=== PATIENT | female | born 1990 | race Caucasian/White ===

== ENCOUNTER 2024-12-29 08:36 | Emergency (ER) | payer OTHER, SELFPAY ==
[2024-12-29 09:04] VITALS: BP 121/61; PULSE 64; RESP 18; TEMP 36.2; O2SAT 97; BMI 26.6
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
[2024-12-29 09:46] VITALS: BP 121/61; PULSE 64; RESP 18; TEMP 36.2; O2SAT 97
--- OUTSIDE RECORDS SUMMARY | 2024-12-29 09:48 | XMS_ITS | Encounter Summary ---
Author Organization [facility] Address [address] [place] [address] Care Team Providers Care Financial Assistant Name Role Phone Ingris Johnson MD Primary Care Provider [phone] Encounter Details Date Type Department Care Team (Late st Contact Info) Description 11/29/2024 Telephone Orthopedic Surgery - [place] [address] [address] Yaniv Gonzales, DPRadha [address] [address] Social History Tobacco Use Types Packs/Day Years Used Date Smoking Tobacco: Never Assessed Comments Unknown Sex and Gender Information Value Date Recorded Sex Assigned at Not on file Legal Sex Female 9:58 AM EDT Gender Identity Not on file Sexual Orientation Not on file documented as of this encounter Progress Notes * Ivone Huggins - 12/10/2024 5:01 PM EDT RX & clinicals faxed multiple times. Re-faxing again. * Acosta Mohan - 11/29/2024 2:45 PM EDT [facility] called today at [phone] regarding about scripts that need to be signed by Dr. Gonzales. Has been faxing since 10/14-11/21 documented in this encounter Plan of Treatment Not on file documented as of this encounter Visit Diagnoses Not on filedocumented in this encounter Care Teams Financial Assistant Relationship Specialty Start Date End Date Ingris Johnson MD PCP - General Family Medicine 07/05/24 documented as of this encounter
--- OUTSIDE RECORDS SUMMARY | 2024-12-29 09:48 | XMS_ITS | Clinical Summary ---
Author Organization [address] [facility] Address [address] [place] [address] Phone Care Team Providers Care Plan Manager Name Role Phone Ingris Johnson MD Primary Care Provider [phone] Encounters Date Type Department Care Team Description 11/29/2024 Telephone Orthopedic Surgery [facility] [address] [facility] [address] [place] [address] Yaniv Gonzales DPM from Last 3 Months Social History Tobacco Use Types Packs/Day Years Used Date Smoking Tobacco: Never Assessed Comments Unknown Sex and Gender Information Value Date Recorded Sex Assigned at Not on file Legal Sex Female 9:58 AM EDT Gender Identity Not on file Sexual Orientation Not on file Plan of Treatment Health Maintenance Due Date Last Done Comments Pneumococcal Vaccine: Pediatrics (0 to 5 Years) and At-Risk Patients (6 to 49 Years) (1 of 2 - PCV) 2008 Depression Screening 04/10/2024 HIV Screening 07/05/2024 Social Influencers of Health Screening 07/05/2024 COVID-19 Vaccine ( - season) 2024 Influenza Vaccine (#1) 2024 Cervical Cancer Screening: HPV 07/08/2029 07/08/2024 DTaP,Tdap,and Td Vaccines (10 - Td or Tdap) 04/20/2032 04/20/2022, 09/05/2018, 02/13/2008, Additional history exists RSV Immunization Adult Patients (1 - 1-dose 75+ series) 2064 MMR Vaccines Completed 08/23/1993, 09/21/1990 Hepatitis B Vaccines Completed 07/04/1994, 10/19/1993, 08/23/1993 IPV Vaccines Completed 01/26/1995, 10/08, 08/23/1993, Additional history exists Meningococcal ACWY Vaccine Completed 07/10/2006 Varicella Vaccines Completed 10/13/2007, 10/17/2001 HPV Vaccines Completed 02/06/2008, 09/09, 07/20/2007 Hepatitis A Vaccines Completed 02/06/2008, 07/20/19 08 HIB Vaccines Aged Out 02/13/2008 No longer eligi ble based on patient's age to complete this topic Hepatitis C Screening Completed 08/19/2020 Meningococcal B Vaccine Aged Out No l onger eligible based on patient's age to complete this topic RSV Immunization Patients Under 20 months Aged Out No longer eligible based on patient's age to complete this topic Insurance [facility] [employer] PLANS Care Teams Plan Manager Relationship Specialty Start Date End Date Ingris Johnson MD PCP - General Family Medicine 07/05/24
--- OUTSIDE RECORDS SUMMARY | 2024-12-29 09:49 | XMS_ITS | Encounter Summary ---
Author Organization [employer] Address [address] [facility] [address] [address] [place] [address] Care Team Providers Care Cardiology Consultant Name Role Phone AlexIngris Primary Care Provider [phone] Encounter Details Date Type Department Care Team (Late st Contact Info) Description 01/31/2024 Orders Only [facility] [address] [place] [address] Tai Bang NP [address] [place] [address] Social History Tobacco Use Types Packs/Day Years Used Date Smoking Tobacco: Never Smokeless Tobacco: Never Alcohol Use Standard Drinks/Week Comments Yes 0 (1 standard drink = 0.6 oz pur e alcohol) Occasionally Housing Stability Answer Date Recorded What is your housing situation today? I have nazanin briggs 08/21/[address] you li ve. Do you have problems with any of the following? None of the above 08/21/2023 Food Insecurity Answer Date Recorded Within the past 12 months, y ou worried that your food would run out before you got money to buy more: Never True 08/21/2023 Within the past 12 months,th e food you bought just didn't last and you didn't have enough money to get more: Never True Transportation Answer Date Recorded In the past 12 months, has l ack of transportation kept you from medical appts, meetings, work or from getting things needed for daily living? No 08/21/2023 Utilities Answer Date Recorded In the past 12 months, has t he electric, gas, oil or water company threatened to shut off services in your home? No 08/21/2023 Depression Answer Date Recorded Patient Health Questionnaire-2 Score 0 08/21/2023 Comments No Sex and Gender Information Value Date Recorded Sex Assigned at Female 02/09/2022 2:22 PM EDT Legal Sex Female 8:37 PM EDT Gender Identity Female 05/13/2022 9:25 AM EST Sexual Orientation Choose not to disclose 2022 2:57 PM EST documented as of this encounter Plan of Treatment Upcoming Encounters Date Type Department Care Team (Late st Contact Info) Description 01/09/2025 9:15 AM EDT Office Visit [facility] MEDICAL [address] [place] [address] Ingris Johnson DO [address] [place] [address] 03/24/2025 8:30 AM EST Office Visit [facility] DENTAL [address] [place] [address] Aletha Haddad documented as of this encounter Procedures Procedure Name Priority Date/Time Associated Diagnosis Comments PULMONARY FUNCTION TESTING Routine 06/30/2021 9:04 AM EDT documented in this encounter Results * Pulmonary function testing (06/30/2021 9:04 AM EDT) Tai Bang HANDLE ASSEMBLER PFT ORDERABLES Final Result documented in this encounter Visit Diagnoses Not on filedocumented in this encounter Care Teams Cardiology Consultant Relationship Specialty Start Date End Date Ingris Johnson DO [address] [place] [address] PCP - General Family Medicine 01/08/24 documented as of this encounter
--- OUTSIDE RECORDS SUMMARY | 2024-12-29 09:49 | XMS_ITS | Encounter Summary ---
Author Organization [employer] Address [address] [place] [address] [address] [place] [address] Care Team Providers Care Black Ash Worker Name Role Phone Fallon Portillo PA-C Primary Care Provider Unav Ingris Flores DO Primary Care Provider [phone] Encounter Details Date Type Department Care Team (Late st Contact Info) Description 04/19/2023 Orders Only [place] [facility] [address] [place] [address] Fallon Portillo PA-C Social History Tobacco Use Types Packs/Day Years Used Date Smoking Tobacco: Never Smokeless Tobacco: Never Alcohol Use Standard Drinks/Week Comments Yes 0 (1 standard drink = 0.6 oz pur e alcohol) Occasionally Comments Unknown Sex and Gender Information Value [...] Description 01/09/2025 9:15 AM EDT Office Visit [facility] MEDICAL [address] [place] [address] Ingris Johnson DO [address] [place] [address] 03/24/2025 8:30 AM EST Office [facility] DENTAL [address] [place] [address] Aletha Haddad documented as of this encounter Procedures Procedure Name Priority Date/Time Associated Diagnosis Comments SED RATE BY MODIFIED WESTERGREN Routine 04/18/2023 documented in this encounter Results * Sed Rate by Modified Westergren (04/18/2023) Blood Venous blood specimen / Unknown Fallon Portillo PA-C LAB BLOOD ORDERABLES Edited Result - Final documented in this encounter Visit Diagnoses Not on filedocumented in this encounter Care Teams Black Ash Worker Relationship Specialty Start Date End Date Fallon Portillo PA-C PCP - General Family Medicine 06/20/22 01/07/24 Ingris Johnson DO [address] [place] [id number] PCP - General Family Medicine 01/08/24 documented as of this encounter
--- OUTSIDE RECORDS SUMMARY | 2024-12-29 09:49 | XMS_ITS | Encounter Summary ---
Author Organization [employer] Address [address] [address] [place] [address] Care Team Providers Care Concrete Panel Installer Name Role Phone Fallon Portillo PA-C Primary Care Provider Ingris Tejeda DO Primary Care Provider [phone] Encounter Details Date Type Department Care Team (Late st Contact Info) Description 08/28/2023 Orders Only [facility] [address] [place] [address] Fallon Portillo PA-C Social History Tobacco Use [...] Patient Health Questionnaire-2 Score 0 08/21/2023 Comments Unknown Sex and Gender Information Value [...] 01/09/2025 9:15 AM EDT Office Visit [facility] MEDICAL [address] [place] [address] Ingris Johnson DO [address] [place] [address] 03/24/2025 8:30 AM EST Office Visit [facility] DENTAL [address] [place] [address] Aletha Haddad documented as of this encounter Procedures Procedure Name Priority Date/Time Associated Diagnosis Comments SED RATE BY MODIFIED WESTERGREN Routine 08/28/2023 2:03 PM EDT CBC WITH AUTO DIFFERENTIAL Routine 08/28/2023 12:00 PM EDT documented in this encounter Results * Sed Rate by Modified Westergren (08/28/2023 2:03 PM EDT) Blood Venous blood specimen / Unknown Fallon Portillo PA-C LAB BLOOD ORDERABLES Final Result * CBC auto differential (08/28/2023 12:00 PM EDT) Blood Venous blood specimen / Unknown Fallon Portillo PA-C LAB BLOOD ORDERABLES Final Result documented in this encounter Visit Diagnoses Not on filedocumented in this encounter Care Teams Concrete Panel Installer Relationship Specialty Start Date End Date Fallon Portillo PA-C PCP - General Family Medicine 06/20/22 01/07/24 Ingris Johnson DO [address] [place] [address] PCP - General Family Medicine 01/08/24 documented as of this encounter
--- OUTSIDE RECORDS SUMMARY | 2024-12-29 09:49 | XMS_ITS | Encounter Summary ---
Author Organization [employer] Address [address] [address] [place] [address] Care Team Providers Care Vacuum Cleaner Mechanic Name Role Phone Ingris Johnson DO Primary Care Provider [phone] Encounter Details Date Type Department Care Team (Late st Contact Info) Description 04/06/2024 Orders Only [place] [facility] [address] [place] [address] Ingris Johnson DO [address] [place] [address] Social History Tobacco Use Types Packs/Day Years [...] 01/09/2025 9:15 AM EDT Office Visit [facility] MEDICAL [address] [place] [address] Ingris Johnson DO [address] [place] [address] 03/24/2025 8:30 AM EST Office Visit [facility] DENTAL [address] [place] [address] Aletha Haddad documented as of this encounter Procedures Procedure Name Priority Date/Time Associated Diagnosis Comments COMPREHENSIVE METABOLIC PANEL Routine 03/29/2024 10:45 AM EST CBC WITH AUTO DIFFERENTIAL Routine 03/29/2024 10:45 AM EST documented in this encounter Results * Comprehensive Metabolic Panel (03/29/2024 10:45 AM EST) Blood Venous blood specimen / Unknown us Ingris Johnson LAB BLOOD ORDERABLES Final Res ult * CBC auto differential (03/29/2024 10:45 AM EST) Blood Venous blood specimen / Unknown us Ingris Johnson DO LAB BLOOD ORDERABLES Final Res ult documented in this encounter Visit Diagnoses Not on filedocumented in this encounter Care Teams Vacuum Cleaner Mechanic Relationship Specialty Start Date End Date Ingris Johnson DO [address] [place] [address] PCP - General Family Medicine 01/08/24 documented as of this encounter
--- OUTSIDE RECORDS SUMMARY | 2024-12-29 09:49 | XMS_ITS | Encounter Summary ---
Author Organization [employer] Address [address] [facility] [address] [place] [address] Care Team Providers Care Tank Insulator Rubber Name Role Phone Fallon Portillo PA-C Primary Care Provider Unav ailIngris Joy DO Primary Care Provider Encounter Details Date Type Department Care Team (Latest Contact Info) Description 03/28/2019 Abstract [facility] CONVERSIONS Dental, Provider, DDS Social History Tobacco Use Types Packs/Day Years [...] Description 01/09/2025 9:15 AM EDT Office Visit [facility] MEDICAL [address] [place] [address] Ingris Johnson DO [address] [place] [address] 03/24/2025 8:30 AM EST Office Visit [facility] DENTAL [address] [place] [address] Aletha Haddad documented as of this encounter Visit Diagnoses Not on filedocumented in this encounter Care Teams Tank Insulator Rubber Relationship Specialty Start Date End Date Fallon Portillo PA-C PCP - General Family Medicine 06/20/22 01/07/24 Ingris Johnson DO [address] [place] [address] PCP - General Family Medicine 01/08/24 documented as of this encounter
--- OUTSIDE RECORDS SUMMARY | 2024-12-29 09:49 | XMS_ITS | Encounter Summary ---
Author Organization [facility] Address [address] [facility] [address] [place] [address] Phone Care Team Providers Care Child Care Provider Name Role Phone RaMayuri black Sandra TIMMONS Primary Care Provider + Fallon Portillo Primary Care Provider [phone] Yisel Boles MD Unavailable [phone] Ingris Johnson DO Primary Care Provider [phone] Ingris Johnson DO Primary Care Provider [phone] Encounter Details Date Type Department Care Team (Late st Contact Info) Description 06/30/2021 Ancillary Orders [facility] Rheumatology [address] [place] [address] Susanna Hyatt MD [address] [facility], [address] [place] [address] [email or web address] Social History Tobacco Use Types Packs/Day Years Used Date Smoking Tobacco: Never Smokeless Tobacco: Never Alcohol Use Standard Drinks/Week Comments Yes 2 (1 standard drink = 0.6 oz pur e alcohol) 1- 2 times monthly Comments No Sex and Gender Information Value Date Recorded Sex Assigned at Female 10/13/2019 8:18 AM EDT Legal Sex Female 9:05 PM EDT Gender Identity Female 10/13/2019 8:18 AM EDT Sexual Orientation Straight 10/13/2019 8: 18 AM EDT documented as of this encounter Plan of Treatment Upcoming Encounters Date Type Department Care Team (Late st Contact Info) Description 03/24/2025 9:00 AM EST Nurse Only [facility] Pulmonary, Allergy and Critical Care Medicine [address] [place] [address] Patrick Henson MD [address] [facility] 2nd [place] [address] documented as of this encounter Visit Diagnoses Not on filedocumented in this encounter Additional Health Concerns Infection Onset Date Last Indicated Resolved Time CoV-Risk 05/25/2023 05/25/2023 06/05/2023 1:24 AM EST documented as of this encounter Care Teams Child Care Provider Relationship Specialty Start Date End Date Mayuri Michael CNP [address] [place] [id number] [email or web address] PCP - General 01/24/17 09/01/22 Fallon Portillo PA [address] [place] [phone] [email or web address] PCP - General Physician Human Resources Operations Specialist 09/02/22 05/01/24 Ingris Johnson DO [address] [place] [address] PCP - General Family Medicine 05/02/24 10/07/24 Ingris Johnson DO [address] [place] [address] PCP - General Family Medicine 10/08/24 Yisel Boles MD [address] [place] [address] Insurance Assigned Provider 07/15/23 03/20/24 documented as of this encounter Additional Source Comments The information contained in this document represents components of the legal health record. It is not the complete legal health record.[email or web address]
--- OUTSIDE RECORDS SUMMARY | 2024-12-29 09:49 | XMS_ITS | Encounter Summary ---
Author Organization [facility] Address [address] [place] [phone] Phone Care Team Providers Care Asian Art Curator Name Role Phone RadongtoyaSylMayurikat Flores CNP Primary Care Provider + Fallon Portillo Primary Care Provider [phone] Yisel Boles MD Unavailable [phone] Ingris Johnson DO Primary Care Provider [phone] Ingris Johnson DO Primary Care Provider [phone] Encounter Details Date Type Department Care Team (Latest Contact Info) Description 09/16/2021 Transcribe Orders [facility] Laboratory [address] [place] [address] Lisa Rodriguez PA-C [address] [facility], [place] [place] [address] [email or web address] Diarrhea, unspecified type (Primary Dx); Lower abdominal pain; Rectal bleeding; Constipation, unspecified constipation type Social History Tobacco Use Types Packs/Day Years [...] Pulmonary, Allergy and Critical Care Medicine [address] [place] [address] [place] [address] Patrick Henson MD 10 [facility] 2nd [place] [address] documented as of this encounter Results * Ferritin (09/16/2021 10:01 AM EDT) FERRITIN 104 13 - 150 ug/L [facility] Blood 09/16/2021 10:0 1 AM EDT 09/16/2021 10:07 AM EDT us Lisa Rodriguez PA-C LAB BLOOD ORDERABLES Final Resu lt [address] [address] * TSH (09/16/2021 10:01 AM EDT) TSH 1.79 0.27 - 4.20 uIU/mL [facility] Blood 09/16/2021 10:0 1 AM EDT 09/16/2021 10:07 AM EDT us Lisa Rodriguez PA-C LAB BLOOD ORDERABLES Final Resu lt [address] [address] * Immunoglobulin A (09/16/2021 10:01 AM EDT) IgA 144 70 - 400 mg/dL [facility] Blood 09/16/2021 10:0 1 AM EDT 09/16/2021 10:07 AM EDT us Lisa Rodriguez PA-C LAB BLOOD ORDERABLES Final Resu lt Performing Organization Address City/[facility]/ZIP Co de Phone Number [address] [address] * Lipase (09/16/2021 10:01 AM EDT) LIPASE 39 16 - 63 U/L [facility] Blood 09/16/2021 10:0 1 AM EDT 09/16/2021 10:07 AM EDT us Lisa Rodriguez PA-C LAB BLOOD ORDERABLES Final Resu lt Performing Organization Address [facility] Co de Phone Number [address] [address] * C-Reactive Protein (09/16/2021 10:01 AM EDT) C REACTIVE PROTEIN <3.0 0.0 - 4.0 mg/L [facility] Blood 09/16/2021 10:0 1 AM EDT 09/16/2021 10:07 AM EDT us Lisa Rodriguez PA-C LAB BLOOD ORDERABLES Final Resu lt Performing Organization Address [facility]/ZIP Co de Phone Number [address] [address] * Comprehensive metabolic panel (09/16/2021 10:01 AM EDT) SODIUM 139 133 - 146 mmol/L [facility] POTASSIUM 5.1 3.3 - 5.1 mmol/L [facility] CHLORIDE 104 96 - 108 mmol/L [facility] CO2 27 21 - 35 mmol/L [facility] BUN 16 6 - 19 mg/dL [facility] CREATININE 0.80 0.5 - 1.5 mg/dL [facility] GLUCOSE 96 70 - 99 mg/dL [facility] ALBUMIN 4.5 3.9 - 4.8 g/dL [facility] TOTAL PROTEIN 7.7 6.5 - 8.0 g/dL [facility] CALCIUM 9.2 8.4 - 10.3 mg/dL [facility] ALKALINE PHOSPHATASE 39 39 - 117 U/L [facility] TOTAL BILIRUBIN 0.5 0.0 - 1.2 mg/dL [facility] AST 17 0 - 37 U/L [facility] ALT 12 0 - 40 U/L [facility] GLOBULIN 3.2 1 - 4.8 g/dL [facility] EGFR 100 >59 mL/min/1.7 3m2 [facility] Comment:Estimated glomerular filtration rate calculated using the CKD-EPI refit equation. ANION GAP 13 10 - 20 mmol/L [facility] Blood 09/16/2021 10:0 1 AM EDT 09/16/2021 10:07 AM EDT us Lisa Rodriguez PA-C LAB BLOOD ORDERABLES Final Resu lt Performing Organization Address City/State/[facility] Co de Phone Number [address] [address] documented in this encounter Visit Diagnoses Diagnosis Diarrhea, unspecified type- Primary Lower abdominal pain Abdominal pain, other specified site Rectal bleeding Hemorrhage of rectum and anus Constipation, unspecified constipation type documented in this encounter Additional Health Concerns Infection Onset Date Last Indicated Resolved Time CoV-Risk 05/25/2023 05/25/2023 06/05/2023 1:24 AM EST documented as of this encounter Care Teams Asian Art Curator Relationship Specialty Start Date End Date Mayuri Michael CNP [address] [place] [address] [email or web address] PCP - General 01/24/17 09/01/22 Fallon Portillo PA [address] [place] [address] [email or web address] PCP - General Physician Auto Rental Supervisor 09/02/22 05/01/24 Ingris Johnson DO [address] [place] [address] [email or web address] PCP - General Family Medicine 05/02/24 10/07/24 Ingris Johnson DO [address] [place] [address] PCP - General Family Medicine 10/08/24 Yisel Boles MD [address] [place] [phone] [email or web address] Insurance Assigned Provider 07/15/23 03/20/24 documented as of this encounter Additional Source Comments The information contained in this document represents components of the legal health record. It is not the complete legal health record.[facility]
--- OUTSIDE RECORDS SUMMARY | 2024-12-29 09:49 | XMS_ITS | Encounter Summary ---
Author Organization [employer] Address [address] [facility] 7t [place] [address] Care Team Providers Care Backroom Associate Name Role Phone Ingris Johnson DO Primary Care Provider [phone] Encounter Details Date Type Department Care Team (Late st Contact Info) Description 04/22/2024 Orders Only [place] [facility] MED[facility] [address] [place] [address] Ingris Johnson DO [address] [place], [place] [phone] Social History Tobacco Use Types Packs/Day Years Used Date Smoking Tobacco: Never Smokeless Tobacco: Never Alcohol Use Standard Drinks/Week Comments Yes 0 (1 standard drink = 0.6 oz pur e alcohol) Occasionally Alcohol Answer Date Recorded How often do you have a drink containing alcohol ? 1 04/15/2024 How many drinks containing a lcohol do you have on a typical day when you are drinking? 0 04/15/2024 How often do you have six or more drinks on one occasion? 1 04/15/2024 Housing Stability Answer Date Recorded What is [...] Description 01/09/2025 9:15 AM EDT Office Visit [facility] MEDICAL [address] [place] [address] Ingris Johnson DO [address] [place] [address] 03/24/2025 8:30 AM EST Office Visit [facility] DENTAL [address] [place] [address] Aletha Haddad documented as of this encounter Visit Diagnoses Not on filedocumented in this encounter Care Teams Backroom Associate Relationship Specialty Start Date End Date Ingris Johnson DO [address] [place] [address] PCP - General Family Medicine 01/08/24 documented as of this encounter
--- OUTSIDE RECORDS SUMMARY | 2024-12-29 09:49 | XMS_ITS | Clinical Summary ---
Author Organization [employer] Address [address] [place] [address] 7[address] [place] [address] Care Team Providers Care Office Nurse Name Role Phone Ingris Johnson DO Primary Care Provider Allergies Active Allergy Reactions Criticality Noted Date Comments Fluticasone Other 12/27/2016 Other reaction(s): epistaxis Nose Bleeds Latex Hives 12/27/2016 Lidocaine Rash Low 10/22/2024 Other 02/02/2024 Dissolvable stitches Oxycodone-Acetaminophen Itching,Rash Low 12/27/2016 Other reaction(s): hives Penicillin G Anaphylaxis High 12/27/2016 Other reaction(s): hives-as a child [place] Oil Unknown 08/01/2022 Vancomycin Itching,Rash Low 12/27/2016 Other reaction(s): hives Medications dicyclomine (Bentyl) 10 MG capsule 2 Active albuterol (2.5 MG/3ML) 0.083% nebulizer solutionIndicat ions:Cough, unspecified type Take 3 mL (2.5 mg) by nebulization if needed in the morning, at noon, in the evening, and at bedtime for wheezing or shortness of breath for up to 365 doses. 1095 mL 3 Active UNABLE TO FIND Nitric Oxide 4 Active [place]-3 Fatty Acids (Fish Oil) 1000 MG capsule delayed-release Take 1,000 mg by mouth Once per day. 4 Active Lysine 500 MG capsule Take 500 mg by mouth Once per day. 4 Active lidocaine-prilo angelica (Emla) 2.5-2.5 % cream Apply topically 1 (one) time if needed for mild pain or moderate pain. 5 Active LORazepam (Ativan) 0.5 MG tablet Take 0.5 mg by mouth every 6 (six) hours if needed for anxiety or sedation. 5 Active valACYclovir (Valtrex) 1 g tablet Take 1,000 mg by mouth 4 times daily. 5 Active Beclomethasone Diprop HFA (Qvar) 80 MCG/ACT inhaler Inhale 2 puffs 2 times daily. 5 Active Budeson-Glycopy rrol-Formoterol (Breztri Aerosphere) 160-9-4.8 MCG/ACT aerosol Inhale 2 puffs 2 times daily. 5 10/18/19 26 Active Atrovent HFA 17 MCG/ACT inhaler Inhale 2 puffs every 6 (six) hours if needed for wheezing or shortness of breath. 5 Active Active Problems Problem Noted Date Diagnosed Date Impacted cerumen of both ears 08/05/2024 Varicose veins of right lower extremity with denice n 09/11/2023 Overview (09/11/2023): Worsening pain and bulging of right LE varicose veins. Failed conservative tx. Will refer to vascular. Cough variant asthma 08/21/2023 Overview (08/21/2023): Has been following allergy, Dr. Torres. Was started on amitriptyline. New onset headache 05/25/2023 Assessment & Plan (05/25/2023 1:52 PM EST): New onset severe throbbing headache worsening with position changes/coughing/sneezing. Additional symptoms of vomiting. Advised evaluation in ED at higher level of care. Discussed with patient current symptoms indicate need for immediate evaluation in ED. Patient verbalizes understanding and will go to [facility] ED for in person evaluation at this time, will have partner drive or call 911. Seasonal allergies 08/15/2022 Overview (08/15/2022): Rx amitriptyline and albuterol from allergy. Follows Dr. Torres. Other irritable bowel syndrome 08/15/2022 Overview (08/15/2022): Followed by GI. Takes dicyclomine prn Adjustment disorder with mix ed disturbance of emotions and conduct 06/20/2022 Heart murmur 06/20/2022 Raynaud's disease without gangrene 01/12/2022 Overview (08/01/2022): Keep warm, dress in layers. Optimize stress management strategies. Avoid vasoconstrictors in OTC products for cold/flu and sinus. Vitamin D deficiency 10/16/2019 Inflammatory polyarthropathy 12/12/2018 Overview (08/21/2023): Seen by rheum - labs have not revealed immunologic signs of rheumatoid arthritis versus systemic lupus erythematosus versus Sjogren's syndrome. She was seen for the 2nd opinion rheumatology consultation at [facility] 09/23/2020 when she was fairly asymptomatic so there was no clear indication for adding any DMARDs at that time. She did benefit from Celebrex. After clinical and ultrasonographic evaluation at [facility] by Dr. Lewis on 11/09/2020 there are no signs of inflammatory arthritis necessitating DMARD therapy at this time. Positive antinuclear antibody 08/11/2017 Overview (08/05/2022): Positive CARLENE in itself does not make any disease diagnosis but may be a risk factor for her to develop 1 of the systemic rheumatic diseases associated with positive CARLENE at some point in the future. Healthful lifestyle, daily sun protection, regular exercise and avoidance of any sicknesses may be helpful in decreasing the risk. Some patients may benefit from taking slow acting disease modifying antirheumatic medication (DMARD) Plaquenil to reduce rate of progression to disease and prevent/reduce flares if disease already present. She is interested in other options since Plaquenil did not provide benefit-I provided her with pamphlets on methotrexate, sulfasalazine and Arava briefly explaining their most frequent side effects, dosing and usual onset of action. To make sure that there are no other options both diagnostically and therapeutically that she would benefit from I have offered her a second opinion rheumatology consultation at [facility]-she was seen on 09/23/[address] Crystal Neely and at that time did not have flare . Resolved Problems Problem Noted Date Diagnosed Date Resolved Date Influenza A 05/09/2024 05/28/2024 Encounters Date Type Department Care Team Description 11/29/2024 9:45 AM EDT Office Visit [facility] MEDICAL [address] [place] [address] Ingris Johnson DO Abnormal uterine bleeding (AUB) (Primary Dx); Cough variant asthma 11/28/2024 Travel 11/22/2024 Telephone [facility] MEDICAL [address] [place] [address] Ingris Johnson DO period issues (ongoing for 3 weeks) 10/07/2024 10:30 AM EDT Office Visit [facility] DENTAL [address] [place] [address] Aletha Haddad Grinding of teeth (Primary Dx) 10/06/2024 Travel from Last 3 Months Immunizations Immunization Administration Dates Next Due DTP 10/17/2001, 5,10/19/1993,08/23,1989 HPV 9-Valent 02/06/2008,10/02/2007,07/20/2007 Hep A, ped/adol, 2 dose 02/06/2008,07/20/2007 Hep B, Adolescent or Pediatric 07/04/1994,1993,08/23/1993 Hib (PRP-T) 02/13/2008 MMR 08/23/1993,09/21/1990 Meningococcal MCV4P ACYW-135 07/10/2006 Polio, Unspecified 01/26/1995, 4,08/23/1993,07/27 TD (adult), 2 Lf tetanus tox oid, preservative free, adsorbed 09/05/2018,05/10/2003 Tdap 04/20/2022,02/13/2008 Varicella 10/13/2007,10/17/2001 Family History Medical History Relation Name Comments Coronary artery disease Paternal Grandfather Relation Name Status Comments Other Nothing new per pt 08/04/17 Brother was born with Glaucoma Sister is far sided. MOM wears glasses. Paternal Grandfather diagnos ed with Coronary artery disease (CAD) Social History Tobacco Use Types Packs/Day Years Used Date Smoking Tobacco: Never Passive Smoke Exposure: Never Smokeless Tobacco: Never Tobacco Cessation:Counseling Given: Not Answered Alcohol Use Standard Drinks/Week Comments Yes 0 [...] Date Recorded Patient Health Questionnaire-2 Score 0 07/08/2024 Internet Access Answer Date Recorded Internet Access Q1 Yes 07/08/2024 Internet Access Q2 Not on file 07/08/2024 Education Answer Date Recorded What is the highest level of school you have completed or the highest degree you have received? Associate degree: occupational, technical, or vocational program 07/08/2024 Comments No Intention Date Recorded No desire to become (finding) 0 07/08/2024 Sex and Gender Information Value Date Recorded Sex Assigned at Female 02/09/2022 2:22 PM EDT Legal Sex Female 8:37 PM EDT Gender Identity Female 05/13/2022 9:25 AM EST Sexual Orientation Choose not to disclose 2022 2:57 PM EST Occupation Industry Job Start Date Job End Date Not on file Not on file Not on file Not on file Last Filed Vital Signs Vital Sign Reading Time Taken Comments Blood Pressure 110/68 11/29/2024 9:52 AM EDT Pulse 59 11/29/2024 9:52 AM EDT Temperature 36.3 C (97.3 F) 11/29/2024 9:52 AM EDT Respiratory Rate 16 04/15/2024 2:19 PM EST Oxygen Saturation 99% 11/29/2024 9:52 AM EDT Inhaled Oxygen Concentration - - Weight 74.8 kg (165 lb) 11/29/2024 9:52 AM EDT Height 167.6 cm (5' 6 ) 11/29/2024 9:52 AM EDT Body Mass Index 26.63 11/29/2024 9:52 AM EDT Plan of Treatment Upcoming Encounters Date Type Department Care Team (Late st Contact Info) Description 01/09/2025 9:15 AM EDT Office Visit [facility] MEDICAL [address] [place] [address] Ingris Johnson DO [address] [place] [address] 03/24/2025 8:30 AM EST Office Visit [facility] DENTAL [address] [place] [address] Aletha Haddad Health Maintenance Due Date Last Done Comments HIV Screening 1989 Pneumococcal Vaccine: Pediatrics (0 to 5 Years) and At-Risk Patients (6 to 49) Years (1 of 2 - PCV) 2008 COVID-19 Vaccine ( - season) 2024 Influenza Vaccine (#1) 2024 Dental Oral Exam 03/19/2025 09/16/2024, , 07/18/2023, Additional history exists Dental Prophylaxis 03/19/2025 09/16/2024, 1 , 07/18/2023, Additional history exists Alcohol/Substance Use Screening 04/15/2025 04/15/2024 Disability Screening 05/08/2025 05/08/2024 Depression Screening 07/08/2025 07/08/2024, 07/09/19 Family Planning (PISQ) 07/08/2025 07/08/2024 SDOH Screening 07/08/2025 07/08/2024 Tobacco Screening 09/16/2025 09/16/2024 Dental X-Ray: Bitewings 09/17/2025 09/17/19 25, 01/12/2024, 07/18/2023, Additional history exists Dental X-Ray: Full Mouth 07/18/2026 07/18/2023, 11/09 Pap Smear 07/09/2027 07/08/2024, 06/10, 08/29/2023 Cervical Cancer Screening 07/08/2029 HPV/Cotest 07/08/2029 07/08/2024, 08/29/2023 DTaP/Tdap/Td Vaccines (10 - Td or Tdap) 04/20/2032 04/20/2022, 09/05/2018, 02/13/2008, Additional history exists Zoster Vaccines (1 of 2) 2039 RSV Patients and Patients Aged 60 years or older (1 - 1-dose 75+ series) 2064 Hepatitis B Vaccines Completed 07/04/1994, 10/19/1993, 08/23/1993 IPV Vaccines Completed 01/26/1995, 10/08, 08/23/1993, Additional history exists Meningococcal Vaccine Completed 07/10/2006 HPV Vaccines Completed 02/06/2008, 09/09, 07/20/2007 Hepatitis A Vaccines Completed 02/06/2008, 07/20/19 08 HIB Vaccines Aged Out 02/13/2008 No longer eligi ble based on patient's age to complete this topic Hepatitis C Screening Completed 08/19/2020 Meningococcal B Vaccine Aged Out No l onger eligible based on patient's age to complete this topic RSV under 20 months Aged Out No longe r eligible based on patient's age to complete this topic Rotavirus Vaccines Aged Out No longer eligible based on patient's age to complete this topic Procedures Procedure Name Priority Date/Time Associated Diagnosis Comments CBC WITH AUTO DIFFERENTIAL Routine 11/29/2024 11:07 AM EDT Abnormal uterine bleeding (AUB) ID OCCLUSAL GUARD, IN HOUSE Routine 10/07/2024 10:30 AM EDT Full PROPHYLAXIS - ADULT Routine 09/16/2024 9:20 AM EDT BITEWINGS - 4 RADIOGRAPHIC IMAGES Routine 09/16/2024 9:20 AM EDT PERIODIC ORAL EVALUATION - ESTABLISHED PATIENT Routine 09/16/2024 9:20 AM EDT IMAGE GUIDED PAP, APTIMA HPV W/REFLEX TO HPV GENOTYPE 16 Routine 07/08/2024 12:00 AM EDT GYNECOLOGIC PAP TEST-AGE BASED GUIDELINE CERVICAL CANCER Routine 07/08/2024 12:00 AM EDT Cervical cancer screening INTRAORAL - COMPLETE SERIES OF RADIOGRAPHIC IMAGES Routine 07/18/2023 3:00 PM EDT ZZZ HISTORICAL HEPATITIS C ANTIBODY, QUALITATIVE Routine 08/19/2020 9:33 AM EDT from Last 3 Months or Most Recently Relevant to Health Maintenance Results * CBC auto differential [[id number]] (11/29/2024 11:07 AM EDT) White Blood Cell Count 7.9 3.4 - 10.8 x10E3/uL [facility] Red Blood Cell Count 4.49 3.77 - 5.28 x10E6/uL [facility] 1 Hemoglobin 13.9 11.1 - 15.9 g/dL [facility] 1 Hematocrit 42.5 34.0 - 46.6 % [facility] 1 MCV 95 79 - 97 fL [facility] 1 MCH 31.0 26.6 - 33.0 pg [facility] 1 MCHC 32.7 31.5 - 35.7 g/dL [facility] 1 RDW 12.6 11.7 - 15.4 % [facility] 1 Platelet Count 258 150 - 450 x10E3/uL [facility] 1 Neutrophils 73 Not Estab. % [facility] 1 Lymphocytes 19 Not Estab. % [facility] 1 Monocytes 6 Not Estab. % [facility] 1 Eosinophils 1 Not Estab. % [facility] 1 Basophils 1 Not Estab. % [facility] 1 Absolute Neutrophils 5.8 1.4 - 7.0 x10E3/uL [facility] 1 Absolute Lymphocytes 1.5 0.7 - 3.1 x10E3/uL [facility] 1 Absolute Monocytes 0.5 0.1 - 0.9 x10E3/uL [facility] 1 Absolute Eosinophils 0.1 0.0 - 0.4 x10E3/uL [facility] 1 Absolute Basophils 0.1 0.0 - 0.2 x10E3/uL [facility] 1 Immature Granulocytes 0 Not Estab. % [facility] 1 Immature Grans (Abs) 0.0 0.0 - 0.1 x10E3/uL [facility] 1 Blood Venous blood specimen / Unknown 11/29/2024 11:07 AM EDT 11/29/2024 Narrative Resulting Agency Comment Performed at: [facility] [id number] Business Process Lead: Sonya Bear MD, Phone: [phone] [facility] LAB BLOOD ORDERABLES Final Res ult Performing Organization Address [facility] Co de Phone Number [facility] * Pap - Age Guideline for Cervical Cancer and STDs (Aptima??) [463837] (07/08/2024 12:00 AM EDT) Age Guideline ACOG Testing 30-65 [facility] 1 ThinPrep vial (Cervical cells) 07/08/2024 07/08/2024 Comment:Cervical cells Narrative [facility] 1 - 07/10/2024 2:05 PM EDT Performed at: [facility] [address], [place], [place] [id number] Business Process Lead: Daniel Mace MD, Phone: [phone] Specimen Comment: [id number] Specimen Comment: Source.............Cervix Specimen Comment: LMP / Prev Treat...[id number] Specimen Comment: No. of containers..01 ThinPrep Vial [facility] CYTOLOGY ORDERABLES Final Result Performing Organization Address [facility] Co de Phone Number [facility] * Image Guided Pap, Aptima HPV w/Reflex to HPV Genotypes 16 and 18,45 (07/08/2024 12:00 AM EDT) Diagnosis [facility] 1 Comment:NEGATIVE FOR INTRAEP ITHELIAL LESION OR MALIGNANCY. Adequacy: [facility] 1 Comment: Satisfactory for evaluation. Endocervical and/or squamous metaplastic cells (endocervical component) are present. Clinician provided ICD-10: [facility] 1 Comment:Z12.4 Performed by: [facility] 1 Comment:Lisa Mendoza, [facility] otechnologist (ASCP) Cytology Comment . [facility] 1 Note: [facility] 1 Comment: The Pap smear is a screening test designed to aid in the detection of premalignant and malignant conditions of the uterine cervix. It is not a diagnostic procedure and should not be used as the sole means of detecting cervical cancer. Both false-positive and false-negative reports do occur. Test Methodology: [facility] Comment: This liquid based ThinPrep(R) pap test was screened with the use of an image guided system. HPV Aptima Negative Negative [facility] 2 Comment: This nucleic acid amplification test detects fourteen high-risk HPV types (16,18,31,33,35,39,45,51,52,56,58,59,66,68) without differentiation. HPV Genotype Reflex [facility] 1 Comment:Criteria not met, HP V Genotype not performed. 07/08/2024 07/08/2024 Comment:Cervical cells Narrative [facility] 1 - 07/10/2024 2:05 PM EDT Performed at: - [facility] [address], [address], [place] [id number] Business Process Lead: Daniel Mace MD, Phone: [phone] Performed at: - [facility] [address], [address], [place] [id number] Business Process Lead: Daniel Mace MD, Phone: [phone] Ingris Johnson LAB CYTOLOGY ORDERABLES Final Result [facility] 1 [facility] * Hepatitis C antibody, qualitative (08/19/2020 9:33 AM EDT) HCV [facility] 08/19/2020 9:33 AM EDT us Susanna Hyatt MD HISTORICAL/NON ORDERABLE LABS Final Result [facility] [address] [place] [address], from Last 3 Months or Most Recently Relevant to Health Maintenance Insurance [facility] - HSN PARTIAL (MEDICAID) Care Teams Office Nurse Relationship Specialty Start Date End Date Ingris Johnson DO [address] [place] [id number] PCP - General Family Medicine 01/08/24
--- OUTSIDE RECORDS SUMMARY | 2024-12-29 09:49 | XMS_ITS | Encounter Summary ---
Author Organization [facility] Address [address] [place] [address] Phone Care Team Providers Care Music Leader Name Role Phone Mayuri Michael CNP Primary Care Provider + Mayuri Michael CNP Unavailable [phone] Tai Garcia MD Unavailable [phone] Barak CheemaM Unavailable Unavailable Fallon Portillo Primary Care Provider Yisel Boles MD Unavailable [phone] Ingris Johnson DO Primary Care Provider [phone] Ingris Johnson DO Primary Care Provider [phone] Reason for Referral * Physical Therapy (Routine) - Closed Specialty Diagnoses / Procedures Referred By Alejandra leal Referred To Contact Physical Therapy Diagnoses Encounter for rehabilitation Graciela Antony DPM Phone: tel: fax: mailto:[email or web address] Ashanti Kendall PT mailto:[email or web address] Referral ID Status Reason Start Date Expiration Date Visits Re quested Visits Authorized [id number] Closed 03/28/2018 03/28/2019 20 20 Encounter Details Date Type Department Care Team (Latest Contact Info) Description 03/20/2018 Transcribe Orders [facility] [address] [place] [address] Graciela Antony DPM 10 [facility] 7 [place] [address] [email or web address] Encounter for rehabilitation (Primary Dx) Social History Tobacco Use Types Packs/Day Years Used Date Smoking Tobacco: Never Smokeless Tobacco: Never Alcohol Use Standard Drinks/Week Comments Yes 2 (1 standard drink = 0.6 oz pur e alcohol) 1- 2 times monthly Comments Unknown Sex and Gender Information Value [...] Pulmonary, Allergy and Critical Care Medicine 10 [place] [address] Patrick Henson MD [address] [place] [address] [email or web address] documented as of this encounter Procedures Procedure Name Priority Date/Time Associated Diagnosis Comments AMB REFERRAL TO [facility] PHYSICAL THERAPY Routine 04/09/2018 11:08 AM EST Encounter for rehabilitation documented in this encounter Results * Ambulatory referral to [facility] Physical Therapy (04/09/2018 11:08 AM EST) Graciela Antony DPM AMB [facility] REFERRALS Final Result documented in this encounter Visit Diagnoses Diagnosis Encounter for rehabilitation- Primary documented in this encounter Additional Health Concerns Infection Onset Date Last Indicated Resolved Time CoV-Exposed Comment:Recent close contact documented in the Travel/Symptom Screening Form 04/10/2021 04/25/2021 1:[address] CoV-Risk 05/25/2023 05/25/2023 06/05/2023 1:24 AM EST documented as of this encounter Care Teams Music Leader Relationship Specialty Start Date End Date Mayuri Michael CNP [address] [place] [address] [email or web address] PCP - General 01/24/17 09/01/22 Fallon Portillo PA [address] [place] [address] [email or web address] PCP - General Physician Cleaning Staff Supervisor 09/02/22 05/01/24 Ingris Johnson DO [address] [place] [address] [email or web address] PCP - General Family Medicine 05/02/24 10/07/24 Ingris Johnson DO [address] [place] [address] PCP - General Family Medicine 10/08/24 Mayuri Michael CNP [address] [place] [address] [email or web address] Historical LMR Provider 01/26/1704/17 Tai Garcia MD [address] [place] [address] Historical LMR Provider 01/26/17 Barak Cheema DPM [address] [place] [address] Historical LMR Provider 01/26/1704/17/21 Yisel Boles MD [address] [place] [address] [email or web address] Insurance Assigned Provider 07/15/23 03/20/24 documented as of this encounter Additional Source Comments The information contained in this document represents components of the legal health record. It is not the complete legal health record.[facility]
--- OUTSIDE RECORDS SUMMARY | 2024-12-29 09:49 | XMS_ITS | Encounter Summary ---
Author Organization [facility] Address [address] [facility] [address] [place] [address] Phone Care Team Providers Care Soda Fountain Manager Name Role Phone RaSyl blackkat Flores CNP Primary Care Provider + Fallon Portillo Primary Care Provider [phone] Yisel Boles MD Unavailable [phone] Ingris Johnson DO Primary Care Provider [phone] Ingris Johnson DO Primary Care Provider [phone] Encounter Details Date Type Department Care Team (Late st Contact Info) Description 06/30/2021 Ancillary Orders [facility] Rheumatology 22 [place] [address] Susanna Hyatt MD 22 [facility], [address] [place] [address] [email or web address] Pneumonia due to COVID-19 virus Social History Tobacco Use Types Packs/Day Years [...] Pulmonary, Allergy and Critical Care Medicine [address] [place] [address] Patrick Henson MD 10 [facility] 2nd [place] [address] documented as of this encounter Visit Diagnoses Diagnosis Pneumonia due to COVID-19 virus documented in this encounter Additional Health Concerns Infection Onset Date Last Indicated Resolved Time CoV-Risk 05/25/2023 05/25/2023 06/05/2023 1:24 AM EST documented as of this encounter Care Teams Soda Fountain Manager Relationship Specialty Start Date End Date Mayuri Michael CNP [address] [place] [address] [email or web address] PCP - General 01/24/17 09/01/22 Fallon Portillo PA [address] [place] [address] [email or web address] PCP - General Physician Oncology Social Worker 09/02/22 05/01/24 Ingris Johnson DO [address] [place] [address] [email or web address] PCP - General Family Medicine 05/02/24 10/07/24 Ingris Johnson DO [address] [place] [address] PCP - General Family Medicine 10/08/24 Yisel Boles MD [address] [place] [address] [email or web address] Insurance Assigned Provider 07/15/23 03/20/24 documented as of this encounter Additional Source Comments The information contained in this document represents components of the legal health record. It is not the complete legal health record.[facility]
--- OUTSIDE RECORDS SUMMARY | 2024-12-29 09:49 | XMS_ITS | Encounter Summary ---
Author Organization [employer] Address [address] [facility] 7t [place] [address] Care Team Providers Care Cat Scan Tech Name Role Phone Fallon Portillo PA-C Primary Care Provider Unav ailIngris Joy DO Primary Care Provider [phone] Encounter Details Date Type Department Care Team (Latest Contact Info) Description 03/13/2020 Abstract [facility] CONVERSIONS Dental, Provider, DDS Social [...] Description 01/09/2025 9:15 AM EDT Office Visit [facility] MEDICAL [address] [place] [address] Ingris Johnson DO [address] [place] [address] 03/24/2025 8:30 AM EST Office [facility] DENTAL [address] [place] [address] Aletha Haddad documented as of this encounter Visit Diagnoses Not on filedocumented in this encounter Care Teams Cat Scan Tech Relationship Specialty Start Date End Date Fallon Portillo PA-C PCP - General Family Medicine 06/20/22 01/07/24 Ingris Johnson DO [address] [place] [address] PCP - General Family Medicine 01/08/24 documented as of this encounter
--- OUTSIDE RECORDS SUMMARY | 2024-12-29 09:49 | XMS_ITS | Encounter Summary ---
Author Organization [facility] Address [address] [facility] [address] [place] [address] Phone Care Team Providers Care Relay Motorman Name Role Phone RaMayuri black Sandra TIMMONS Primary Care Provider + Fallon Portillo Primary Care Provider [phone] Yisel Boles MD Unavailable [phone] Ingris Johnson DO Primary Care Provider [phone] Ingris Johnson DO Primary Care Provider [phone] Encounter Details Date Type Department Care Team (Latest Contact Info) Description 07/05/2021 Ancillary Orders [facility] Rheumatology 22 [place] [address] Susanna Hyatt MD 22 [facility], [address] [place] [address] [email or web address] Inflammatory polyarthritis Social History Tobacco Use Types Packs/Day Years [...] Pulmonary, Allergy and Critical Care Medicine 10 [facility] [place] [address] Patrick Henson MD 10 [facility] 2nd [place] [address] documented as of this encounter Results * XR Knee Standing (Bilateral, Single View Only) (07/05/2021 2:01 PM EDT) Anatomical Region Laterality Modality Knee Right, Knee Bilateral Compu trista Radiography 07/05/2021 2:06 PM EDT Impressions 07/05/2021 2:07 PM EDT Unremarkable. Narrative 07/05/2021 2:07 PM EDT COMPARISON: Right knee radiograph 09/06/2019. STANDING AP KNEES RADIOGRAPH FINDINGS: Single standing AP image obtained. Mineralization is normal. Joint spaces are preserved. No destructive or suspicious bone lesions or soft tissue swelling. Procedure Note Erik Reid MD - 07/05/2021 COMPARISON: Right knee radiograph 09/06/2019. STANDING AP KNEES RADIOGRAPH FINDINGS: Single standing AP image obtained. Mineralization is normal. Joint spaces are preserved. No destructive orsuspicious bone lesions or soft tissue swelling. IMPRESSION: Unremarkable. us Susanna Hyatt MD IMG XR LOWER EXTREMITY F inal Result documented in this encounter Visit Diagnoses Diagnosis Inflammatory polyarthritis Unspecified inflammatory polyarthropathy Inflammatory polyarthritis Unspecified inflammatory polyarthropathy documented in this encounter Additional Health Concerns Infection Onset Date Last Indicated Resolved Time CoV-Risk 05/25/2023 05/25/2023 06/05/2023 1:24 AM EST documented as of this encounter Care Teams Relay Motorman Relationship Specialty Start Date End Date Mayuri Michael CNP [address] [place] [address] [email or web address] PCP - General 01/24/17 09/01/22 Fallon Portillo PA [address] [place] [address] [email or web address] PCP - General Physician Integration Architect 09/02/22 05/01/24 Ingris Johnson DO [address] [place] [address] [email or web address] PCP - General Family Medicine 05/02/24 10/07/24 Ingris Johnson DO [address] [place] [address] PCP - General Family Medicine 10/08/24 Yisel Boles MD [address] [place] [address] [email or web address] Insurance Assigned Provider 07/15/23 03/20/24 documented as of this encounter Additional Source Comments The information contained in this document represents components of the legal health record. It is not the complete legal health record.[facility]
--- OUTSIDE RECORDS SUMMARY | 2024-12-29 09:49 | XMS_ITS | Encounter Summary ---
Author Organization [facility] Address [address] [place] [address] [place] [address] Phone Care Team Providers Care Brand Marketing Coordinator Name Role Phone Alec Mayuri Sandra TIMMONS Primary Care Provider + Mayuri Michael SR. VENDOR MANAGEMENT ASSOCIATE Unavailable [phone] Tai Garcia MD Unavailable Barak Cheema DPM Unavailable Unavailable Fallon Portillo Primary Care Provider [phone] Yisel Boles MD Unavailable [phone] Ingris Johnson DO Primary Care Provider [phone] Ingris Johnson DO Primary Care Provider [phone] Encounter Details Date Type Department Care Team (Latest Contact Info) Description 02/11/2019 Ancillary Orders [facility] Rheumatology [address] [place] [address] Susanna Hyatt MD 22 [facility], [address] [place] [address] [email or web address] Chronic pain in right foot; Inflammatory polyarthritis Social History Tobacco Use Types [...] Pulmonary, Allergy and Critical Care Medicine 10 [place] [address] Patrick Henson MD [address] [place] [address] documented as of this encounter Results * XR FOOT 3 OR MORE VIEWS (BILATERAL) (02/11/2019 3:12 PM EST) Anatomical Region Laterality Modality Foot Left Radiographic [place] ging 02/11/2019 3:19 PM EST Impressions 02/11/2019 3:23 PM EST Post surgical changes evident at the first MTP joint bilaterally for prior hallux valgus deformities. No significant degenerative change or erosive arthropathy is seen. Bilateral plantar calcaneal spurring is seen which is new on the right and unchanged on the left. S/S: * Foot pain, chronic, etiol unknown, initial exam. Bilateral chronic foot pain, prior bilateral bunion surgery POS - [id number] Narrative 02/11/2019 3:23 PM EST COMPARISON: Right foot x-ray November 18, 2013 and left foot x-ray July 03, 2016 FINDINGS: 3 views of each foot are obtained. On the right the patient has had prior surgery at the first MTP joint for a mild hallux valgus deformity. There is still a mild deformity present. No osteopenia or erosive changes are seen. There are negligible degenerative changes evident. There is minor plantar calcaneal spurring consistent with plantar fasciitis. On the left there are post surgical changes from a hallux valgus deformity evident with a fixation screw in the distal first metatarsal. The appearance is unchanged relative to previous imaging. No osteopenia or erosive changes are seen. There are negligible degenerative changes identified. There is plantar calcaneal spurring consistent with plantar fasciitis. This is unchanged. Procedure Note Rojelio Rowe MD - 02/11/2019 COMPARISON: Right foot x-ray November 18, 2013 and left foot x-ray June FINDINGS: 3 views of each foot are obtained. On the right the patient has had prior surgery at the first MTP joint fora mild hallux valgus deformity. There is still a mild deformity present.No osteopenia or erosive changes are seen. There are negligibledegenerative changes evident. There is minor plantar calcaneal spurringconsistent with plantar fasciitis. On the left there are post surgical changes from a hallux valgus deformityevident with a fixation screw in the distal first metatarsal. Theappearance is unchanged relative to previous imaging. No osteopenia orerosive changes are seen. There are negligible degenerative changesidentified. There is plantar calcaneal spurring consistent with plantarfasciitis. This is unchanged. IMPRESSION: Post surgical changes evident at the first MTP joint bilaterally for priorhallux valgus deformities. No significant degenerative change or erosivearthropathy is seen. Bilateral plantar calcaneal spurring is seen which isnew on the right and unchanged on the left. S/S: * Foot pain, chronic, etiol unknown, initial exam. Bilateral chronicfoot pain, prior bilateral bunion surgery POS - [id number] Susanna Hyatt MD IMG XR LOWER EXTREMITY F inal Result documented in this encounter Visit Diagnoses Diagnosis Chronic pain in right foot Inflammatory polyarthritis Unspecified inflammatory polyarthropathy Chronic pain in right foot Inflammatory polyarthritis Unspecified inflammatory polyarthropathy documented in this encounter Additional Health Concerns Infection Onset Date Last Indicated Resolved Time CoV-Exposed Comment:Recent close contact documented in the Travel/Symptom Screening Form 04/10/2021 04/25/2021 1:[address] CoV-Risk 05/25/2023 05/25/2023 06/05/2023 1:24 AM EST documented as of this encounter Care Teams Brand Marketing Coordinator Relationship Specialty Start Date End Date Mayuri Michael CNP [address] [place] [address] [email or web address] PCP - General 01/24/17 09/01/22 Fallon Portillo PA [address] [place] [address] [email or web address] PCP - General Physician Echocardiograph Tech 09/02/22 05/01/24 Ingris Johnson DO 73 [place] [address] [email or web address] PCP - General Family Medicine 05/02/24 10/07/24 Ingris Johnson DO [address] [place] [address] PCP - General Family Medicine 10/08/24 Mayuri Michael CNP [address] [place] [address] [email or web address] Historical LMR Provider 01/26/1704/17 Tai Garcia MD [address] [place] [address] Historical LMR Provider 01/26/17 Barak Cheema DPM [address] [place] [address] Historical LMR Provider 01/26/1704/17/21 Yisel Boles MD [address] [place] [address] [email or web address] Insurance Assigned Provider 07/15/23 03/20/24 documented as of this encounter Additional Source Comments The information contained in this document represents components of the legal health record. It is not the complete legal health record.[facility]
--- OUTSIDE RECORDS SUMMARY | 2024-12-29 09:49 | XMS_ITS | Encounter Summary ---
Author Organization [facility] Address [address] [place] [address] Phone Care Team Providers Care Design Engineer Products Name Role Phone Mayuri Michael CNP Primary Care Provider + Fallon Portillo Primary Care Provider [phone] Yisel Boles MD Unavailable [phone] Ingris Johnson DO Primary Care Provider [phone] Ingris Johnson DO Primary Care Provider [phone] Encounter Details Date Type Department Care Team (Late Contact Info) Description 11/26/2021 Procedure Pass [facility] Endoscopy Admitting Dept Virtual Department [address] [place] [address] Social History Tobacco Use Types Packs/Day Years [...] Upcoming Encounters Date Type Department Care Team ([facility] Contact Info) Description 03/24/2025 9:00 AM EST Nurse Only [facility] Pulmonary, Allergy and Critical Care Medicine [address] [place] [address] Patrick Henson MD [address] [place] [address] [email or web address] documented as of this encounter Visit Diagnoses Not on filedocumented in this encounter Additional Health Concerns Infection Onset Date Last Indicated Resolved Time CoV-Risk 05/25/2023 05/25/2023 06/05/2023 1:24 AM EST documented as of this encounter Care Teams Design Engineer Products Relationship Specialty Start Date End Date Mayuri Michael CNP [address] [place] [address] [email or web address] PCP - General 01/24/17 09/01/22 Fallon Portillo PA [address] [place] [address] [email or web address] PCP - General Physician Regulator Mechanic 09/02/22 05/01/24 Ingris Johnson DO [address] [place] [address] [email or web address] PCP - General Family Medicine 05/02/24 10/07/24 Ingris Johnson DO [address] [place] [address] PCP - General Family Medicine 10/08/24 Yisel Boles MD [address] [place] [address] [email or web address] Insurance Assigned Provider 07/15/23 03/20/24 documented as of this encounter Additional Source Comments The information contained in this document represents components of the legal health record. It is not the complete legal health record.[facility]
--- OUTSIDE RECORDS SUMMARY | 2024-12-29 09:49 | XMS_ITS | Encounter Summary ---
Author Organization [employer] Address [address] [facility] [address]t [place] [address] Care Team Providers Care Shotgun Shell Loading Machine Operator Name Role Phone Fallon Portillo PA-C Primary Care Provider Ingris Tejeda DO Primary Care Provider [phone] Encounter Details Date Type Department Care Team (Late st Contact Info) Description 05/23/2023 Orders Only [facility] MEDICAL [address] [place] [address] Fallon Portillo PA-C Acute pain of right knee Social History Tobacco Use Types Packs/Day Years [...] Description 01/09/2025 9:15 AM EDT Office Visit [facility][1] MEDICAL [address] [place] [address] Ingris Johnson DO [address] [place] [address] 03/24/2025 8:30 AM EST Office Visit [facility] DENTAL [address] [place] [address] Aletha Haddad documented as of this encounter Procedures Procedure Name Priority Date/Time Associated Diagnosis Comments MR KNEE WO CONTRAST RIGHT Routine 05/22/2023 Acute pain of right knee documented in this encounter Results * MR Knee w/o Contrast Right (05/22/2023) Anatomical Region Laterality Modality Magnetic Resonan ce us Fallon Portillo PA-C IMG MRI PROCEDURES Final Re sult documented in this encounter Visit Diagnoses Diagnosis Acute pain of right knee documented in this encounter Care Teams Shotgun Shell Loading Machine Operator Relationship Specialty Start Date End Date Fallon Portillo PA-C PCP - General Family Medicine 06/20/22 01/07/24 Ingris Johnson DO [address] [place] [address] PCP - General Family Medicine 01/08/24 documented as of this encounter
--- OUTSIDE RECORDS SUMMARY | 2024-12-29 09:51 | XMS_ITS | Encounter Summary ---
Author Organization [facility] Address [address] [place] [address] [place] [address] Phone Care Team Providers Care Culinary Arts Teacher Name Role Phone Fallon Portillo Primary Care Provider [phone] Yisel Boles MD Unavailable [phone] Ingris Johnson DO Primary Care Provider [phone] Ingris Johnson DO Primary Care Provider [phone] Reason for Referral * MRI/CAT Scan - Closed Specialty Diagnoses / Procedures Referred By Contemilia t Referred To Contact Radiology Diagnoses Acute pain of right knee Procedures MRI Knee (Right) CHG MRI LOWER EXTREM JT, W/O CONTRAST CHG MRI, JOINT OF LEG W/CONTRAST CHG MRI, JOINT OF LEG. Fallon Morton PA [address] [facility] [address] Phone: tel: fax: [email or web address] Referral ID Status Reason Start Date Expiration Date Visits Re quested Visits Authorized [id number] Closed 05/22/2023 06/21/2023 1 1 Encounter Details Date Type Department Care Team (Latest Contact Info) Description 04/25/2023 Transcribe Orders [facility] Department [address] [place], [place] [id number] Fallon Portillo PA [address] [facility] [address] [email or web address] Acute pain of right knee (Primary Dx) Social History Tobacco Use Types Packs/Day Years Used Date Smoking Tobacco: Never Smokeless Tobacco: Never Alcohol Use Standard Drinks/Week Comments Yes 2 (1 standard drink = 0.6 oz pur e alcohol) 1- 2 times monthly Education Answer Date Recorded Are you interested in more education? Not on caridad e 08/05/2022 Are you concerned about learning? Not on file 08/05/2022 No 08/05/2022 No 08/05/2022 Digital Access Answer Date Recorded No 09/02/2022 No 09/02/2022 Reliable internet access at home? Not on file 09/02/2022 Device with a working camera? Not on file Comments No Sex and Gender Information Value [...] [facility] Pulmonary, Allergy and Critical Care Medicine [address] [place] [address] Patrick Henson MD [address] [place] [address] documented as of this encounter Results * MRI KNEE WITHOUT CONTRAST (RIGHT) (05/22/2023 7:58 AM EST) Anatomical Region Laterality Modality Knee Right Magnetic Resonan ce 05/22/2023 5:17 PM EST Impressions 05/22/2023 5:36 PM EST 1. Cartilage surface irregularity with deep fissuring in the lateral tibial plateau, with nondisplaced subchondral fracture in the lateral tibial plateau. 2. Additional chondrosis and flap formation along the lateral patellar facet, with associated bone marrow edema. 3. Intact menisci, ligaments, and tendons. A clinically significant result was communicated on 05/22/2023 5:36 PM, Message ID [id number]. Narrative 05/22/2023 5:36 PM EST MRI KNEE WITHOUT CONTRAST (RIGHT) Referring clinician's provided indication for this examination in [facility]: Outside Radiology Order; ACUTE RIGHT KNEE PAIN TECHNIQUE: Multi-sequence, multi-planar MRI of the knee without intravenous contrast. COMPARISON: XR KNEE 4 OR MORE VIEWS (RIGHT) FINDINGS: Medial Compartment: No meniscal tear. No cartilage defect or subchondral edema. Lateral Compartment: Deep fissuring of the lateral tibial plateau cartilage, with flap formation and underlying marrow edema. Associated linear signal abnormality is consistent with nondisplaced subchondral fracture. Patellofemoral Compartment: Cartilage surface irregularity, with flap formation and deep fissuring. Bone marrow edema on the lateral patellar facet. Minimal surface irregularity of the femoral trochlear cartilage Tendons: Quadriceps, patellar, and popliteus tendons are intact. Ligaments: Cruciate ligaments are intact. Collateral ligaments are intact. Bones: Nondisplaced subchondral fracture of the lateral tibial plateau, as described in the lateral compartment dissection. No osteonecrosis or focal lesion. Joint: Trace effusion. No synovitis or Joaquin's cyst. Procedure Note Keaton Guzman MD - 05/22/2023 MRI KNEE WITHOUT CONTRAST (RIGHT) Referring clinician's provided indication for this examination in Epic:Outside Radiology Order; ACUTE RIGHT KNEE PAIN TECHNIQUE: Multi-sequence, multi-planar MRI of the knee withoutintravenous contrast. COMPARISON: XR KNEE 4 OR MORE VIEWS (RIGHT) FINDINGS: Medial Compartment: No meniscal tear. No cartilage defect or subchondraledema. Lateral Compartment: Deep fissuring of the lateral tibial plateaucartilage, with flap formation and underlying marrow edema. Associatedlinear signal abnormality is consistent with nondisplaced subchondralfracture. Patellofemoral Compartment: Cartilage surface irregularity, with flapformation and deep fissuring. Bone marrow edema on the lateral patellarfacet. Minimal surface irregularity of the femoral trochlear cartilage Tendons: Quadriceps, patellar, and popliteus tendons are intact. Ligaments: Cruciate ligaments are intact. Collateral ligaments areintact. Bones: Nondisplaced subchondral fracture of the lateral tibial plateau, asdescribed in the lateral compartment dissection. No osteonecrosis or focallesion. Joint: Trace effusion. No synovitis or Joaquin's cyst. IMPRESSION: 1. Cartilage surface irregularity with deep fissuring in the lateraltibial plateau, with nondisplaced subchondral fracture in the lateraltibial plateau. 2. Additional chondrosis and flap formation along the lateral patellarfacet, with associated bone marrow edema. 3. Intact menisci, ligaments, and tendons. A clinically significant result was communicated on 05/22/2023 5:36 PM,Message ID [id number]. Fallon SHEPHERD IMG MR EXTREMITY Final Result documented in this encounter Visit Diagnoses Diagnosis Acute pain of right knee- Primary Acute pain of right knee documented in this encounter Additional Health Concerns Infection Onset Date Last Indicated Resolved Time CoV-Risk 05/25/2023 05/25/2023 06/05/2023 1:24 AM EST documented as of this encounter Care Teams Culinary Arts Teacher Relationship Specialty Start Date End Date Fallon Portillo PA [email or web address] PCP - General Physician Merchandising Internship 09/02/22 05/01/24 Ingris Johnson DO [address] [place] [address] PCP - General Family Medicine 05/02/24 10/07/24 Ingris Johnson DO [address] [place] [address] PCP - General Family Medicine 10/08/24 Yisel Boles MD [address] [place] [address] Insurance Assigned Provider 07/15/23 03/20/24 documented as of this encounter Additional Source Comments The information contained in this document represents components of the legal health record. It is not the complete legal health record.[facility]
--- OUTSIDE RECORDS SUMMARY | 2024-12-29 09:51 | XMS_ITS | Encounter Summary ---
Author Organization [facility] Address [address] [place] [address] Phone Care Team Providers Care Microbiology Technologist Name Role Phone Mayuri Michael CNP Primary Care Provider + Mayuri Michael COPPER PLATE PRINTER Unavailable [phone] Tai Garcia MD Unavailable [phone] Barak Cheema DPM Unavailable Unavailable Fallon Portillo Primary Care Provider [phone] Yisel Boles MD Unavailable [phone] Ingris Johnson DO Primary Care Provider [phone] Ingris Johnson DO Primary Care Provider [phone] Encounter Details Date Type Department Care Team (Late st Contact Info) Description 08/17/2020 Procedure Pass [facility] - [address] [place] [address] Social History Tobacco Use Types Packs/Day Years [...] Pulmonary, Allergy and Critical Care Medicine [address] [place] [address] Patrick Henson MD [address] [address] [email or web address] documented as of this encounter Visit Diagnoses Not on filedocumented in this encounter Additional Health Concerns Infection Onset Date Last Indicated Resolved Time CoV-Exposed Comment:Recent close contact documented in the Travel/Symptom Screening Form 04/10/2021 04/25/2021 1:[address] CoV-Risk 05/25/2023 05/25/2023 06/05/2023 1:24 AM EST documented as of this encounter Care Teams Microbiology Technologist Relationship Specialty Start Date End Date Mayuri Michael CNP [address] [place] [address] [email or web address] PCP - General 01/24/17 09/01/22 Fallon Portillo PA [address] [place] [address] [place] [address] [email or web address] PCP - General Physician State Epidemiologist 09/02/22 05/01/24 Ingris Johnson DO [address] [place] [address] [email or web address] PCP - General Family Medicine 05/02/24 10/07/24 Ingris Johnson DO [address] [place] [address] PCP - General Family Medicine 10/08/24 Mayuri Michael CNP [address] [place] [address] [email or web address] Historical LMR Provider 01/26/1704/17 Tai Garcia MD [address] [place] [address] Historical LMR Provider 01/26/17 Barak Cheema DPM [address] [place] [address] [place] [address] Historical LMR Provider 01/26/1704/17/21 Yisel Boles MD [address] [place] [address] [email or web address] Insurance Assigned Provider 07/15/23 03/20/24 documented as of this encounter Additional Source Comments The information contained in this document represents components of the legal health record. It is not the complete legal health record.[facility]
--- OUTSIDE RECORDS SUMMARY | 2024-12-29 09:51 | XMS_ITS | Encounter Summary ---
Author Organization [facility] Address [address] [place] [address] Phone Care Team Providers Care Carpenter Name Role Phone Mayuri Michael CNP Primary Care Provider + Mayuri Michael ELECTRIC METER INSPECTOR Unavailable [phone] Tai Garcia MD Unavailable [phone] Barak Cheema DPM Unavailable Unavailable Fallon Portillo Primary Care Provider [phone] Yisel Boles MD Unavailable [phone] Ingris Johnson DO Primary Care Provider [phone] Ingris Johnson DO Primary Care Provider [phone] Encounter Details Date Type Department Care Team (Late st Contact Info) Description 08/17/2020 Procedure Pass [facility] - [address] [place] [address] Social History Tobacco Use Types Packs/Day Years [...] Pulmonary, Allergy and Critical Care Medicine 10 [place] [address] Patrick Henson MD [address] [address] [email or web address] documented as of this encounter Visit Diagnoses Not on filedocumented in this encounter Additional Health Concerns Infection Onset Date Last Indicated Resolved Time CoV-Exposed Comment:Recent close contact documented in the Travel/Symptom Screening Form 04/10/2021 04/25/2021 1:[address] CoV-Risk 05/25/2023 05/25/2023 06/05/2023 1:24 AM EST documented as of this encounter Care Teams Carpenter Relationship Specialty Start Date End Date Mayuri Michael CNP [address] [place] [address] [email or web address] PCP - General 01/24/17 09/01/22 Fallon Portillo PA [address] [place] [address] [email or web address] PCP - General Physician Staff Design Engineer 09/02/22 05/01/24 Ingris Johnson DO [address] [place] [address] [email or web address] PCP - General Family Medicine 05/02/24 10/07/24 Ingris Johnson DO [address] [place] [address] PCP - General Family Medicine 10/08/24 Mayuri Michael CNP [address] [place] [address] [email or web address] Historical LMR Provider 01/26/1704/17 Tai Garcia MD [address] [place] [address] Historical LMR Provider 01/26/17 Barak Cheema DPM [address] [place] [address] Historical LMR Provider 01/26/1704/17/21 Yisel Boles MD [address] [place] [address] [email or web address] Insurance Assigned Provider 07/15/23 03/20/24 documented as of this encounter Additional Source Comments The information contained in this document represents components of the legal health record. It is not the complete legal health record.[facility]
--- OUTSIDE RECORDS SUMMARY | 2024-12-29 09:51 | XMS_ITS | Encounter Summary ---
Author Organization [facility] Address [address] [place] [address] Phone Care Team Providers Care Celluloid Trimmer Name Role Phone Alec Mayurikat Flores CNP Primary Care Provider + Mayuri Michael MEDICAL I D SALES Unavailable [phone] Tai Garcia MD Unavailable [phone] Barak Cheema DPM Unavailable Unavailable Fallon Portillo Primary Care Provider [phone] Yisel Boles MD Unavailable [phone] Ingris Johnson DO Primary Care Provider [phone] Ingris Johnson DO Primary Care Provider [phone] Encounter Details Date Type Department Care Team (Late st Contact Info) Description 08/17/2020 Ancillary Orders Virtual Department [address] [place] [address] Britany Mcnair MD [address] [place] [address] [email or web address] Breast pain, left Social History Tobacco Use Types Packs/Day Years [...] [facility] Pulmonary, Allergy and Critical Care Medicine [address] [place] [address] Patrick Henson MD [address] [place] [address] [email or web address] documented as of this encounter Results * BI US BREAST LIMITED (LEFT) (08/31/2020 2:43 PM EDT) Anatomical Region Laterality Modality Breast Left, Breast Bilateral Left Ul trasound 08/31/2020 2:52 PM EDT Impressions 08/31/2020 2:54 PM EDT Unremarkable left breast ultrasound. The results were relayed to the patient. Ultrasound BI-RADS CATEGORY 1 - NEGATIVE POS [id number] Narrative 08/31/2020 2:54 PM EDT Duplex imaging of the area of erythema and tenderness the 7:00 periareolar left breast shows no cystic or solid mass, focal hyperemia or fluid collection, or other finding which might correspond to the symptomatic site. Procedure Note Kendall Tam MD - 08/31/2020 Duplex imaging of the area of erythema and tenderness the 7:00 periareolarleft breast shows no cystic or solid mass, focal hyperemia or fluidcollection, or other finding which might correspond to the symptomaticsite. IMPRESSION: Unremarkable left breast ultrasound. The results were relayed to the patient. Ultrasound BI-RADS CATEGORY 1 - NEGATIVE POS [id number] us Britany Mcnair MD IMG US BREAST Final Re sult * BI MAMMOGRAM DIAGNOSTIC WITH TOMOSYNTHESIS WITH CAD (BILATERAL) (08/31/2020 2:17 PM EDT) Anatomical Region Laterality Modality Breast Left, Breast Right, Breast Bilateral Bila teral Mammography 08/31/2020 2:27 PM EDT Impressions 08/31/2020 2:54 PM EDT No findings suspicious for malignancy nor any explanation of left subareolar/periareolar pain and redness are identified. In the absence of a new palpable abnormality, annual screening mammography is recommended beginning at age 40. The findings were relayed to the patient BI-RADS CATEGORY: 1 - Negative. DENSITY: The breast tissue is heterogeneously dense, which could obscure a lesion on mammography. Narrative 08/31/2020 2:54 PM EDT COMPARISON: None: Baseline exam The patient reports recent pain and tenderness in the left subareolar breast which has nearly completely resolved. Bilateral 3-D tomosynthesis with 2-D reconstructions in the CC and MLO projection. Computer-aided detection system also utilized. No new mass, asymmetry, architectural distortion or suspicious calcifications have become apparent on either side. Procedure Note Kendall Tam MD - 08/31/2020 COMPARISON: None: Baseline exam The patient reports recent pain and tenderness in the left subareolarbreast which has nearly completely resolved. Bilateral 3-D tomosynthesis with 2-D reconstructions in the CC and MLOprojection. Computer-aided detection system also utilized. No new mass, asymmetry, architectural distortion or suspiciouscalcifications have become apparent on either side. IMPRESSION: No findings suspicious for malignancy nor any explanation of leftsubareolar/periareolar pain and redness are identified. In the absence ofa new palpable abnormality, annual screening mammography is recommendedbeginning at age 40. The findings were relayed to the patient BI-RADS CATEGORY: 1 - Negative. DENSITY: The breast tissue is heterogeneously dense, which could obscurea lesion on mammography. us Britany Mcnair MD IMG MG EXAMS Final Re sult documented in this encounter Visit Diagnoses Diagnosis Breast pain, left Breast pain, left Breast pain, left documented in this encounter Additional Health Concerns Infection Onset Date Last Indicated Resolved Time CoV-Exposed Comment:Recent close contact documented in the Travel/Symptom Screening Form 04/10/2021 04/25/2021 1:[address] CoV-Risk 05/25/2023 05/25/2023 06/05/2023 1:24 AM EST documented as of this encounter Care Teams Celluloid Trimmer Relationship Specialty Start Date End Date Mayuri Michael CNP [address] [place] [address] [email or web address] PCP - General 01/24/17 09/01/22 Fallon Portillo PA [address] [place] [address] [email or web address] PCP - General Physician Ultrasound Technologist 09/02/22 05/01/24 Ingris Johsnon DO [address] [place] [address] [email or web address] PCP - General Family Medicine 05/02/24 10/07/24 Ingris Johnson DO [address] [place] [address] PCP - General Family Medicine 10/08/24 Mayuri Michael CNP [address] [place] [address] [email or web address] Historical LMR Provider 01/26/1704/17 Tai Garcia MD [address] [place] [address] Historical LMR Provider 01/26/17 Barak Cheema DPM [address] [place] [address] Historical LMR Provider 01/26/1704/17/21 Yisel Boles MD [address] [place] [address] [email or web address] Insurance Assigned Provider 07/15/23 03/20/24 documented as of this encounter Additional Source Comments The information contained in this document represents components of the legal health record. It is not the complete legal health record.[facility]
--- OUTSIDE RECORDS SUMMARY | 2024-12-29 09:51 | XMS_ITS | Encounter Summary ---
Author Organization [facility] Address [address] [place] [address] Phone Care Team Providers Care Load Checker Name Role Phone Fallon Portillo Primary Care Provider [phone] Yisel Boles MD Unavailable [phone] Ingris Johnson DO Primary Care Provider [phone] Ingris Johnson DO Primary Care Provider [phone] Encounter Details Date Type Department Care Team (Late st Contact Info) Description 01/30/2024 Ancillary Orders [facility], [address] [address] Tai Bang, JOHN PAUL [address] [place] [address] Chronic cough (Primary Dx) Social History Tobacco Use Types [...] with a working camera? Not on file Intimate Partner Violence Answer Date R ecorded Are you denied basic needs s uch as food, clothing, or medical care? No 05/25/2023 In the past 12 months have y ou been in a relationship with a person who hurts, threatens, or tries to control you? No 05/25/2023 Are you denied basic needs s uch as food, clothing, or medical care? No 05/25/2023 In the past 12 months have y ou been in a relationship with a person who hurts, threatens, or tries to control you? No 05/25/2023 Comments No Sex and Gender Information Value [...] Pulmonary, Allergy and Critical Care Medicine [address] [place] [address] Patrick Henson MD [address] [place] [address] documented as of this encounter Results * XR CHEST PA AND LATERAL 2 VIEWS (01/30/2024 1:10 PM EDT) Anatomical Region Laterality Modality Chest Computed Radiogr aphy 01/30/2024 1:47 PM EDT Impressions 01/30/2024 1:48 PM EDT Normal chest. Narrative 01/30/2024 1:48 PM EDT XR CHEST PA AND LATERAL 2 VIEWS Referring clinician's provided indication for this examination in Epic: Cough COMPARISON: Previous chest x-ray most recent April 2021 FINDINGS: Devices/Tubes/Lines: None. Lungs: Normal. The lungs are clear. No focal consolidation or pulmonary edema. Pleura: Normal. No pleural effusion or pneumothorax. Heart/Mediastinum: Normal heart and mediastinum. Bones/Soft Tissues: Normal. No significant skeletal abnormality. Procedure Note Cara Nuñez MD - 01/30/2024 XR CHEST PA AND LATERAL 2 VIEWS Referring clinician's provided indication for this examination in Epic:Cough COMPARISON: Previous chest x-ray most recent April 2021 FINDINGS: Devices/Tubes/Lines: None. Lungs: Normal. The lungs are clear. No focal consolidation or pulmonaryedema. Pleura: Normal. No pleural effusion or pneumothorax. Heart/Mediastinum: Normal heart and mediastinum. Bones/Soft Tissues: Normal. No significant skeletal abnormality. IMPRESSION: Normal chest. Tia Bang PUBLIC POLICY COORDINATOR IMG XR CHEST Final Result documented in this encounter Visit Diagnoses Diagnosis Chronic cough- Primary Cough Chronic cough Cough documented in this encounter Care Teams Load Checker Relationship Specialty Start Date End Date Fallon Portillo PA [email or web address] PCP - General Physician Associate Art Director 09/02/22 05/01/24 Ingris Johnson DO [address] [place] [address] PCP - General Family Medicine 05/02/24 10/07/24 Ingris Johnson DO [address] [place] [address] PCP - General Family Medicine 10/08/24 Yisel Boles MD [address] [place] [address] Insurance Assigned Provider 07/15/23 03/20/24 documented as of this encounter Additional Source Comments The information contained in this document represents components of the legal health record. It is not the complete legal health record.[facility]
--- OUTSIDE RECORDS SUMMARY | 2024-12-29 09:51 | XMS_ITS | Clinical Summary ---
Author Organization [facility] Address [address] [place], [place] [id number] Phone Care Team Providers Care Daycare Worker Name Role Phone Ingris Johnson Primary Care Provider [phone] Allergies Active Allergy Reactions Criticality Noted Date Comments Adhesive Tape-Silicones Rash Low 09/02/2022 Fluticasone Other (See Comments) 12/27/2016 Nose Bleeds Latex Hives 12/27/2016 Lidocaine Rash Low 10/22/2024 Other Other (See Comments) 12/27/2016 Jbphh Nuts: Itchy Throat dissolvable sutures Skin reacts Gain detergent staph infection Oxycodone Itching,Rash Low 12/27/2016 Oxycodone-Acetaminophe n Itching,Rash Low 12/27/2016 Other reaction(s): hives Penicillin Anaphylaxis High 12/27/2016 Tree Nuts 09/02/2022 Vancomycin Hcl Itching,Rash Low 12/27/2016 Medications albuterol 90 mcg/actuation inhaler Inhale 2 puffs into the lungs every 6 (six) hours as needed for wheezing. Active LYSINE ORAL Take 500 mg by mouth daily. Active omega-3 fatty acids/fish oil (OMEGA 3 FISH OIL ORAL) Take 1,000 mg by mouth daily. Active triamcinolone acetonide (NASACORT NASL) by Nasal route 4 (four) times a day as needed. Active dicyclomine (BENTYL) 10 MG capsule TAKE 1 CAPSULE BY MOUTH ONCE DAILY NEEDED 2 Active celecoxib (CELEBREX) 200 MG capsuleIndication s:Inflammatory polyarthritis Take 1 capsule (200 mg total) by mouth daily as needed. 90 capsule 1 4 Active Additional Information Patient not taking.Reported on 10/22/2024 valACYclovir (VALTREX) 1000 MG tablet As needed 4 Active cyclobenzaprine (FLEXERIL) 10 MG tablet Take 1 tablet (10 mg total) by mouth 3 (three) times a day as needed. 30 tablet 4 Active Additional Information Patient not taking.Reported on 10/22/2024 omeprazole (PRILOSEC) 20 MG tablet Take 20 mg by mouth 2 (two) times a day. Active budesonide-glycop yr-formoterol (BREZTRI AEROSPHERE) 160-9-4.8 mcg/actuation inhalerIndication s:Moderate persistent asthma with acute exacerbation Inhale 2 puffs into the lungs 2 (two) times a day. 5.9 g 5 026 Active ipratropium (ATROVENT HFA) 17 mcg/actuation inhalerIndication s:Moderate persistent asthma with acute exacerbation Inhale 2 puffs into the lungs every 6 (six) hours. 12.9 g 11 5 Active beclomethasone (QVAR REDIHALER) 80 mcg/actuation inhalerIndication s:Moderate persistent asthma with acute exacerbation Inhale 2 puffs into the lungs 2 (two) times a day. 10.6 g 11 5 Active Active Problems Problem Noted Date Diagnosed Date Post-nasal drip 06/18/2024 Assessment & Plan (06/18/2024 10:46 AM EDT): Postnasal drip suspected as a major contributor to chronic cough. Nasal examination revealed red and swollen turbinates, indicating inflammation. Treatment aims to reduce postnasal drip and subsequent throat irritation. - Increase Nasacort nasal spray to two sprays per nostril twice daily for three weeks. - Use Sudafed and chlorpheniramine every six hours for three weeks. - Advised that consistent use is necessary to allow vocal cords to heal from irritation. Synovitis of right knee 10/06/2023 Assessment & Plan (10/10/2023 10:33 PM EDT): Rest it on a pillow and apply an ice pack over towel for 15-20 minutes every couple of hours. She may benefit from topical Arnica, Biofreeze, Voltaren and carefully continuing Celebrex 200 mg daily. If above strategies insufficient may need to return for diagnostic and therapeutic arthrocentesis with consideration for local cortisone injection. 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 Chondromalacia of both patellae 05/01/2023 Assessment & Plan (05/02/2024 11:28 AM EST): I reviewed with her chronic and frequently progressive nature of chondromalacia patellae/patellofemoral syndrome and the need for gentle, regular exercises that I printed for her today-see details in patient instruction section. She is encouraged to continue watchful diet to prevent weight gain and if possible bring her body weight as close as possible to ideal range for her height. Avoid falls, injuries, overuse, squatting, kneeling, sudden turns and heavy lifting. She is awaiting insurance approval for right knee MRI and orthopedic follow-up afterwards. She may benefit from topical Voltaren, Arnica, Biofreeze versus medicated patches such as Salonpas or IcyHot 2-3 times daily and if needed at bed time x 3 weeks. Assessment & Plan (10/06/2023 5:10 PM EDT): I reviewed with her chronic and frequently progressive nature of chondromalacia patellae/patellofemoral syndrome and the need for gentle, regular exercises that I printed for her today-see details in patient instruction section. She is encouraged to continue watchful diet to prevent weight gain and if possible bring her body weight as close as possible to ideal range for her height. Avoid falls, injuries, overuse, squatting, kneeling, sudden turns and heavy lifting. She is awaiting insurance approval for right knee MRI and orthopedic follow-up afterwards. She may benefit from topical Voltaren, Arnica, Biofreeze versus medicated patches such as Salonpas or IcyHot 2-3 times daily and if needed at bed time x 3 weeks. Assessment & Plan (05/02/2023 11:39 AM EST): I reviewed with her chronic and frequently progressive nature of chondromalacia patellae/patellofemoral syndrome and the need for gentle, regular exercises that I printed for her today-see details in patient instruction section. She is encouraged to continue watchful diet to prevent weight gain and if possible bring her body weight as close as possible to ideal range for her height. Avoid falls, injuries, overuse, squatting, kneeling, sudden turns and heavy lifting. She is awaiting insurance approval for right knee MRI and orthopedic follow-up afterwards. She may benefit from topical Voltaren, Arnica, Biofreeze versus medicated patches such as Salonpas or IcyHot 2-3 times daily and if needed at bed time x 3 weeks. Tendonitis of knee, right 09/02/2022 Assessment & Plan (09/13/2022 5:05 PM EDT): Due to ongoing pain and loud creaking sound on knee bending I offered her formal PT to optimize her joint protective strategies. Make sure to avoid falls, injuries and overuse. Continue efforts on reducing body weight as close as possible to ideal range for her height. She is interested in trying hyaluronic acid supplements X 3 months hoping for decreasing noises in her knees and preventing progressive loss of elasticity and support from age-related changes Pes anserinus bursitis of right knee 09/02/2022 Assessment & Plan (09/13/2022 5:01 PM EDT): Get formal PT with therapeutic ultrasound in addition to gentle, regular exercise routine-examples of exercises with pictures head detailed instructions printed for home use to start with. Warm pack followed by topical Arnica, Biofreeze versus Aspercreme versus Voltaren versus medicated patches such as Salonpas or IcyHot may provide additional benefit. In case symptoms persist despite above measures may need to consider local steroid injection. Raynaud's disease without gangrene 01/12/2022 Assessment & Plan (05/02/2024 11:49 AM EST): Keep warm, dress in layers. Optimize stress management strategies. Avoid vasoconstrictors in OTC products for cold/flu and sinus. Assessment & Plan (09/02/2022 2:49 PM EDT): Keep warm, dress in layers. Optimize stress management strategies. Avoid vasoconstrictors in OTC products for cold/flu and sinus. Assessment & Plan (05/05/2022 12:31 PM EST): Keep warm, dress in layers. Optimize stress management strategies. Avoid vasoconstrictors in OTC products for cold/flu and sinus. Assessment & Plan (01/12/2022 10:19 AM EDT): Keep warm, dress in layers. Optimize stress management strategies. Avoid vasoconstrictors in OTC products for cold/flu and sinus. Overweight with body mass in dex (BMI) of 29 to 29.9 in adult 12/13/2021 Assessment & Plan (10/10/2023 10:34 PM EDT): Continue diligent portion control particularly in view of gaining 5 pounds from 175 in late April 2023 up to 180 today. Limit concentrated sugars, saturated fats and calories in the diet. Keep well-hydrated. If unable to achieve expected goal consider formal dietary/nutritional support. Assessment & Plan (01/12/2022 10:19 AM EDT): Continue diligent portion control. Limit concentrated sugars, saturated fats and calories in the diet. Keep well-hydrated. If unable to achieve expected goal consider formal dietary/nutritional support. Assessment & Plan (12/13/2021 4:13 PM EDT): Congratulations on losing 5 pounds since September 2021 visit from 191 lbs down to 186 lbs today. Continue diligent portion control. Limit concentrated sugars, saturated fats and calories in the diet. Keep well-hydrated. If unable to achieve expected goal consider formal dietary/nutritional support. Dyspepsia 11/24/2021 Assessment & Plan (11/24/2021 10:24 AM EDT): Avoid late, large, spicy meals. Keep headboard elevated at 45 angle for nighttime. Flat foot 07/27/2021 Advice given about COVID-19 virus infection 09/2021 Assessment & Plan (07/06/2021 10:51 AM EDT): I have encouraged Maxwell to get COVID-19 vaccine given her recent prolonged recovery from COVID-19 infection requiring 5-day course of Levaquin and several weeks of nebulizers after prior prednisone course. She is encouraged to discuss her options with [employer]va reactor operator head but according to her report she did not have any side effects from childhood vaccinations therefore she should be able to tolerate COVID-19 vaccination. She is in favor of getting more traditional protein-based vaccine once available-I asked her to be on the look out for Novavax vaccination. Assessment & Plan (06/13/2021 7:48 PM EST): I have encouraged Maxwell to get COVID-19 vaccine given her recent prolonged recovery from COVID-19 infection requiring 5-day course of Levaquin and several weeks of nebulizers after prior prednisone course. She is encouraged to discuss her options with mva reactor operator head but according to her report she did not have any side effects from childhood vaccinations therefore she should be able to tolerate COVID-19 vaccination. She is in favor of getting more traditional protein-based vaccine once available-I asked her to be on the look out for Novavax vaccination. Pneumonia due to COVID-19 virus 06/10/2021 Assessment & Plan (06/13/2021 7:52 PM EST): Due to pneumonia secondary to COVID-19 infection requiring prolonged course of therapy including antibiotics, nebulizers and prednisone I am in favor of getting PFTs and considering formal pulmonology consultation. Moderate persistent asthma with acute exacerbati on 06/10/2021 Assessment & Plan (10/25/2024 10:04 AM EDT): Cough variant asthma confirmed by positive pulmonary function test reaching PC 20 limit. Symptoms worsened with albuterol but improved with Atrovent, indicating a possible issue with albuterol delivery or formulation. Persistent daily cough with phlegm production, ongoing for 11 years, now attributed to asthma. Previous treatments with Sudafed, chlorpheniramine, and montelukast were ineffective. - Discussed the pathophysiology of asthma, including airway inflammation and muscle spasm. - Recommended inhaled steroids to reduce airway inflammation. - Discussed combination inhalers containing long-acting bronchodilators and inhaled steroids for faster and more effective relief. - Discussed insurance considerations and cost, with a preference for Breztri due to less irritation and twice-daily dosing. - Informed about the need to rinse mouth after using inhaled steroids to prevent thrush. - Provide sample of Breztri for trial use. - Order inhaled steroid for long-term management. - Prescribe Atrovent as a rescue inhaler for symptomatic relief. - Schedule follow-up appointment in March. Orders: drthyuhexi-[id number]-ggwpmeobzc (BREZTRI AEROSPHERE) 160-9-4.8 mcg/actuation inhaler; Inhale 2 puffs into the lungs 2 (two) times a day. ipratropium (ATROVENT HFA) 17 mcg/actuation inhaler; Inhale 2 puffs into the lungs every 6 (six) hours. beclomethasone (QVAR REDIHALER) 80 mcg/actuation inhaler; Inhale 2 puffs into the lungs 2 (two) times a day. Assessment & Plan (06/18/2024 10:46 AM EDT): Asthma not definitively ruled out. Previous pulmonary function tests were normal, but asthma could still be present without an active attack. Methacholine challenge test is planned to confirm or rule out diagnosis. Explained that a normal pulmonary function test does not exclude asthma without a trigger. - Order pulmonary function test and methacholine challenge test. - Instructed to avoid using Pulmicort until after testing to accurately assess inflammation levels. Assessment & Plan (06/13/2021 7:51 PM EST): Follow closely with her mva reactor operator head and schedule formal PFTs for better assessment. Dry skin 06/10/2021 Assessment & Plan (06/13/2021 7:49 PM EST): To make sure that she is not developing scleroderma-like features I added centromere and SCL antibodies to next blood draw. She may try different skin products such as Lubriderm, Neutrogena Mauritian formula fragrance free versus Eucerin or Aquaphor. Hair loss 03/10/2021 Assessment & Plan (05/26/2024 9:43 PM EST): Carefully continue Viviscal that she started 2 weeks ago. Assessment & Plan (07/01/2021 11:17 AM EDT): Try Viviscal or Rogaine for women topical Assessment & Plan (06/10/2021 9:59 AM EST): Try Viviscal or Rogaine for women topical Assessment & Plan (04/04/2021 6:43 PM EST): TSH requested to make sure that is not contributing to it. Flat feet, bilateral 12/04/2020 Assessment & Plan (12/04/2020 10:26 PM EDT): Continue wearing well supportive shoes. Gentle, regular feet exercises. Work diligently on reducing body weight as close as possible to ideal range for her height. Tendonitis of knee 11/27/2020 Assessment & Plan (12/04/2020 10:24 PM EDT): Well fitting, supportive shoe. Avoid falls, injuries, overuse, stair climbing, kneeling and squatting. Continue efforts on bringing her body weight as close as possible to ideal range for her height. Formal PT to help with proper technique of joint protection, energy conservation and appropriate exercise routine. She may benefit from topical cream such as Voltaren, Arnica, Biofreeze, Blue emu arthritis spray versus medicated patches such as Salonpas or IcyHot patch 2-3 times daily and if needed at bedtime. Call if problems or questions. NSAID long-term use 10/02/2020 Assessment & Plan (10/06/2023 5:09 PM EDT): Take the lowest dose, with least frequency, for shortest time. Remember to take it always with food. Favor topical over oral preparations. Assessment & Plan (05/01/2023 4:58 PM EST): Take the lowest dose, with least frequency, for shortest time. Remember to take it always with food. Favor topical over oral preparations. Assessment & Plan (09/02/2022 2:48 PM EDT): Take the lowest dose, with least frequency, for shortest time. Remember to take it always with food. Favor topical over oral preparations. . Assessment & Plan (01/12/2022 10:18 AM EDT): Take the lowest dose, with least frequency, for shortest time. Remember to take it always with food. Favor topical over oral preparations. Assessment & Plan (07/01/2021 11:17 AM EDT): Take the lowest dose, with least frequency, for shortest time. Remember to take it always with food. Favor topical over oral preparations. Other insomnia 10/02/2020 Assessment & Plan (05/02/2024 11:49 AM EST): Sleep hygiene principles reviewed in details and strongly encouraged. Listen to relaxation tapes versus CALM vs sleep with me MANNIE nightly. May need to consider formal sleep study if not better after 3 months of diligent adherence to above strategy Assessment & Plan (10/13/2020 3:05 PM EDT): Sleep hygiene principles reviewed in details and strongly encouraged. Listen to relaxation tapes versus CALM vs sleep with me MANNIE nightly. May need to consider formal sleep study if not better after 3 months of diligent adherence to above strategy Rash 09/24/2020 Assessment & Plan (10/04/2020 11:19 PM EDT): Unclear origin-she reports no recent changes in soap or other cosmetics, normal platelet count. Monitor closely-keep in touch if worsening to get dermatology input. Gluten intolerance 09/24/2020 Assessment & Plan (05/05/2022 12:31 PM EST): Avoid gluten in her diet since she noted undesired abdominal discomfort with its ingestion and increased joint pain. Assessment & Plan (01/12/2022 10:09 AM EDT): Avoid gluten in her diet since she noted undesired abdominal discomfort with its ingestion and increased joint pain. Assessment & Plan (11/24/2021 10:23 AM EDT): Avoid gluten in her diet since she noted undesired abdominal discomfort with its ingestion and increased joint pain. Assessment & Plan (09/25/2021 4:40 PM EDT): Avoid gluten in her diet since she noted undesired abdominal discomfort with its ingestion and increased joint pain. Assessment & Plan (07/01/2021 11:18 AM EDT): Avoid gluten in her diet since she noted undesired abdominal discomfort with its ingestion and increased joint pain. Assessment & Plan (06/10/2021 9:58 AM EST): Avoid gluten in her diet since she noted undesired abdominal discomfort with its ingestion and increased joint pain. Assessment & Plan (03/10/2021 10:00 AM EST): Avoid gluten in her diet since she noted undesired abdominal discomfort with its ingestion and increased joint pain. Assessment & Plan (11/27/2020 3:24 PM EDT): Avoid gluten in her diet since she noted undesired abdominal discomfort with its ingestion and increased joint pain. Assessment & Plan (10/27/2020 10:32 PM EDT): Avoid gluten in her diet since she noted undesired abdominal discomfort with its ingestion and increased joint pain. Assessment & Plan (10/04/2020 11:20 PM EDT): Avoid gluten in her diet since she noted undesired abdominal discomfort with its ingestion. Loose stools 09/04/2020 Assessment & Plan (09/04/2020 4:33 PM EDT): Keep diary of food and stools to look for any patterns. Avoid triggering food products. Keep well-hydrated: 6-8 glasses (8 ounces each) of fluids daily. If not better or worse may need to consider formal GI Soreness breast 08/25/2020 Assessment & Plan (08/25/2020 9:17 PM EDT): Monitor closely to make sure that there are no vesicular lesions that may be in the course of Herpes zoster. Inspect carefully to look for any worrisome signs such as nipple inversion, peau d'orange skin versus nipple discharge or palpable masses versus enlarged lymph nodes. Keep in touch with PCP and do not miss mammogram scheduled on 08/31/2020 Dyspnea on exertion 08/19/2020 Assessment & Plan (08/25/2020 8:59 PM EDT): To make sure that she does not have any structural lung abnormalities I requested chest x-ray Dry eyes 08/19/2020 Assessment & Plan (08/25/2020 9:08 PM EDT): Sjogren's antibodies requested. Carefully continue lubricating drops as instructed by inspector insulation. Avoid prolonged air from fans or air conditioners versus wind or draft. Weight gain 07/08/2020 Assessment & Plan (07/12/2020 10:22 PM EDT): To make sure that thyroid dysfunction does not contribute to it serum level requested today. Tenosynovitis, de Quervain 07/08/2020 Assessment & Plan (05/02/2024 11:54 AM EST): Joint protection, energy conservation. Use warm packs versus warm shower prior to gentle, regular exercising. Continue regular exercises as educated in OT and previously printed with detailed instructions and pictures. Assessment & Plan (07/06/2021 10:50 AM EDT): Joint protection, energy conservation. Use warm packs versus warm shower prior to gentle, regular exercising. Continue regular exercises as educated in OT and previously printed with detailed instructions and pictures. Assessment & Plan (09/04/2020 4:18 PM EDT): Joint protection, energy conservation. Use warm packs versus warm shower prior to gentle, regular exercising. Examples of exercises for home use printed with detailed instructions and pictures. Continue OT as prescribed twice weekly and follow instructions diligently. Assessment & Plan (08/25/2020 9:07 PM EDT): Joint protection, energy conservation. Use warm packs versus warm shower prior to gentle, regular exercising. Examples of exercises for home use printed with detailed instructions and pictures. She is about to start formal OT next week. Assessment & Plan (07/12/2020 10:32 PM EDT): Joint protection, energy conservation. Use warm packs versus warm shower prior to gentle, regular exercising. Examples of exercises for home use printed with detailed instructions and pictures. Consider formal OT if not better or worse. Sesamoiditis 04/23/2020 Vitamin D deficiency 10/16/2019 Assessment & Plan (04/04/2021 6:40 PM EST): Serum level requested to make sure that there is no need for adjustment in dosing. Assessment & Plan (07/12/2020 10:22 PM EDT): Continue proper supplementation to keep serum level in optimal range: 40-45 ng/ml. Pain in left foot 01/25/2019 Pain in right foot 01/25/2019 Equinus deformity of both feet 01/25/2019 Inflammatory polyarthritis 12/12/2018 Assessment & Plan (05/26/2024 9:42 PM EST): Additional labs have not revealed immunologic signs of rheumatoid arthritis versus systemic lupus erythematosus versus Sjogren's syndrome. She was seen for the 2nd opinion rheumatology consultation at [facility] Rheumatology 09/23/2020 when she was fairly asymptomatic so there was no clear indication for adding any DMARDs at that time. She developed knee swelling the day following [facility] visit and got labs after visit with me on 09/24/2020 that revealed CRP at 9.9 (0-4.0). The subsequent visit in early November with Dr. Lewis at [facility] and musculoskeletal ultrasound did not reveal any synovitis but (over)use related tendinitis. Avoid sick contacts. Joint protection, energy conservation. Gentle, regular exercise routine. Keep body weight in ideal range for her height. Daily sun protection. Favor topical over oral NSAIDs. She is interested in reviewing information about different options to DMARDs than Plaquenil that did not work for her. She read pamphlets on methotrexate, sulfasalazine and Arava and is hesitating to start any of them at this time. I have explained to her that prior to starting any of those medications I would prefer her to be vaccinated against hepatitis B (at least first dose) and COVID- 19. After clinical and ultrasonographic evaluation at [facility] by Dr. Lewis on 11/09/2020 there were no signs of inflammatory arthritis necessitating DMARD therapy at this time. Assessment & Plan (10/10/2023 10:32 PM EDT): Additional labs have not revealed immunologic signs of rheumatoid arthritis versus systemic lupus erythematosus versus Sjogren's syndrome. She was seen for the 2nd opinion rheumatology consultation at [facility] Rheumatology 09/23/2020 when she was fairly asymptomatic so there was no clear indication for adding any DMARDs at that time. She developed knee swelling the day following [facility] visit and got labs after visit with me on 09/24/2020 that revealed CRP at 9.9 (0-4.0). She did benefit from Celebrex and I suggested her to try carefully reducing Celebrex 200 mg twice daily to alternating dosing with once daily every other day and if no worsening further reduction to daily and every other day after few days as tolerated. The subsequent visit in early November with Dr. Lewis at [facility] and musculoskeletal ultrasound did not reveal any synovitis but (over)use related tendinitis. Due to residual R knee synovitis I requested new set of labs today and gave her excuse for work since she should rest it on a pillow, apply an ice pack over it several times a day and avoid stairs squatting lifting twisting etc. Avoid sick contacts. Joint protection, energy conservation. Gentle, regular exercise routine. Keep body weight in ideal range for her height. Daily sun protection. Favor topical over oral NSAIDs. She is interested in reviewing information about different options to DMARDs than Plaquenil that did not work for her. She read pamphlets on methotrexate, sulfasalazine and Arava and is hesitating to start any of them at this time. I have explained to her that prior to starting any of those medications I would prefer her to be vaccinated against hepatitis B (at least first dose) and COVID- 19. After clinical and ultrasonographic evaluation at [facility] by Dr. Lewis on 11/09/2020 there were no signs of inflammatory arthritis necessitating DMARD therapy at this time. Assessment & Plan (05/01/2023 4:57 PM EST): Additional labs have not revealed immunologic signs of rheumatoid arthritis versus systemic lupus erythematosus versus Sjogren's syndrome. She was seen for the 2nd opinion rheumatology consultation at [facility] [place] Rheumatology 09/23/2020 when she was fairly asymptomatic so there was no clear indication for adding any DMARDs at that time. She developed knee swelling the day following [facility] visit and got labs after visit with me on 09/24/2020 that revealed CRP at 9.9 (0-4.0). She did benefit from Celebrex and I suggested her to try carefully reducing Celebrex 200 mg twice daily to alternating dosing with once daily every other day and if no worsening further reduction to daily and every other day after few days as tolerated. The subsequent visit in early November with Dr. Lewis at [facility] and musculoskeletal ultrasound did not reveal any synovitis but (over)use related tendinitis. Avoid sick contacts. Joint protection, energy conservation. Gentle, regular exercise routine. Keep body weight in ideal range for her height. Daily sun protection. Favor topical over oral NSAIDs. She is interested in reviewing information about different options to DMARDs than Plaquenil that did not work for her. She read pamphlets on methotrexate, sulfasalazine and Arava and is hesitating to start any of them at this time. I have explained to her that prior to starting any of those medications I would prefer her to be vaccinated against hepatitis B (at least first dose) and COVID- 19. After recent clinical and ultrasonographic evaluation at [facility] by Dr. eLwis on 11/09/2020 there are no signs of inflammatory arthritis necessitating DMARD therapy at this time. Assessment & Plan (09/02/2022 2:47 PM EDT): Additional labs have not revealed immunologic signs of rheumatoid arthritis versus systemic lupus erythematosus versus Sjogren's syndrome. She was seen for the 2nd opinion rheumatology consultation at [facility] [place] Rheumatology 09/23/2020 when she was fairly asymptomatic so there was no clear indication for adding any DMARDs at that time. She developed knee swelling the day following [facility] visit and got labs after visit with me on 09/24/2020 that revealed CRP at 9.9 (0-4.0). She did benefit from Celebrex and I suggested her to try carefully reducing Celebrex 200 mg twice daily to alternating dosing with once daily every other day and if no worsening further reduction to daily and every other day after few days as tolerated. The subsequent visit in early November with Dr. Lewis at [facility] [place] and musculoskeletal ultrasound did not reveal any synovitis but (over)use related tendinitis. Avoid sick contacts. Joint protection, energy conservation. Gentle, regular exercise routine. Keep body weight in ideal range for her height. Daily sun protection. Favor topical over oral NSAIDs. She is interested in reviewing information about different options to DMARDs than Plaquenil that did not work for her. She read pamphlets on methotrexate, sulfasalazine and Arava and is hesitating to start any of them at this time. I have explained to her that prior to starting any of those medications I would prefer her to be vaccinated against hepatitis B (at least first dose) and COVID- 19. After recent clinical and ultrasonographic evaluation at [facility] by Dr. Lewis on 11/09/2020 there are no signs of inflammatory arthritis necessitating DMARD therapy at this time. Assessment & Plan (05/05/2022 12:30 PM EST): Additional labs have not revealed immunologic signs of rheumatoid arthritis versus systemic lupus erythematosus versus Sjogren's syndrome. She was seen for the 2nd opinion rheumatology consultation at [facility] Rheumatology 09/23/2020 when she was fairly asymptomatic so there was no clear indication for adding any DMARDs at that time. She developed knee swelling the day following [facility] visit and got labs after visit with me on 09/24/2020 that revealed CRP at 9.9 (0-4.0). She did benefit from Celebrex and I suggested her to try carefully reducing Celebrex 200 mg twice daily to alternating dosing with once daily every other day and if no worsening further reduction to daily and every other day after few days as tolerated. The subsequent visit in early November with Dr. Lewis at [facility] [place] and musculoskeletal ultrasound did not reveal any synovitis but (over)use related tendinitis. Avoid sick contacts. Joint protection, energy conservation. Gentle, regular exercise routine. Keep body weight in ideal range for her height. Daily sun protection. Favor topical over oral NSAIDs. She is interested in reviewing information about different options to DMARDs than Plaquenil that did not work for her. She read pamphlets on methotrexate, sulfasalazine and Arava and is hesitating to start any of them at this time. I have explained to her that prior to starting any of those medications I would prefer her to be vaccinated against hepatitis B (at least first dose) and COVID- 19. After recent clinical and ultrasonographic evaluation at [facility] [place] by Dr. Lewis on 11/09/2020 there are no signs of inflammatory arthritis necessitating DMARD therapy at this time. Assessment & Plan (01/12/2022 10:08 AM EDT): Additional labs have not revealed immunologic signs of rheumatoid arthritis versus systemic lupus erythematosus versus Sjogren's syndrome. She was seen for the 2nd opinion rheumatology consultation at [facility] [place] [facility] Rheumatology 09/23/2020 when she was fairly asymptomatic so there was no clear indication for adding any DMARDs at that time. She developed knee swelling the day following [facility] visit and got labs after visit with me on 09/24/2020 that revealed CRP at 9.9 (0-4.0). She did benefit from Celebrex and I suggested her to try carefully reducing Celebrex 200 mg twice daily to alternating dosing with once daily every other day and if no worsening further reduction to daily and every other day after few days as tolerated. The subsequent visit in early November with Dr. Lewis at [facility] and musculoskeletal ultrasound did not reveal any synovitis but (over)use related tendinitis. Avoid sick contacts. Joint protection, energy conservation. Gentle, regular exercise routine. Keep body weight in ideal range for her height. Daily sun protection. Favor topical over oral NSAIDs. She is interested in reviewing information about different options to DMARDs than Plaquenil that did not work for her. She read pamphlets on methotrexate, sulfasalazine and Arava and is hesitating to start any of them at this time. I have explained to her that prior to starting any of those medications I would prefer her to be vaccinated against hepatitis B (at least first dose) and COVID- 19. After recent clinical and ultrasonographic evaluation at [facility] by Dr. Lewis on 11/09/2020 there are no signs of inflammatory arthritis necessitating DMARD therapy at this time. Assessment & Plan (11/24/2021 10:19 AM EDT): Additional labs have not revealed immunologic signs of rheumatoid arthritis versus systemic lupus erythematosus versus Sjogren's syndrome. She was seen for the 2nd opinion rheumatology consultation at [facility] [place] Rheumatology 09/23/2020 when she was fairly asymptomatic so there was no clear indication for adding any DMARDs at that time. She developed knee swelling the day following [facility] visit and got labs after visit with me on 09/24/2020 that revealed CRP at 9.9 (0-4.0). She did benefit from Celebrex and I suggested her to try carefully reducing Celebrex 200 mg twice daily to alternating dosing with once daily every other day and if no worsening further reduction to daily and every other day after few days as tolerated. The subsequent visit in early November with Dr. Lewis at [facility] [place] and musculoskeletal ultrasound did not reveal any synovitis but (over)use related tendinitis. Avoid sick contacts. Joint protection, energy conservation. Gentle, regular exercise routine. Keep body weight in ideal range for her height. Daily sun protection. Favor topical over oral NSAIDs. She is interested in reviewing information about different options to DMARDs than Plaquenil that did not work for her. She read pamphlets on methotrexate, sulfasalazine and Arava and is hesitating to start any of them at this time. I have explained to her that prior to starting any of those medications I would prefer her to be vaccinated against hepatitis B (at least first dose) and COVID- 19. After recent clinical and ultrasonographic evaluation at [facility] by Dr. Lewis on 11/09/2020 there are no signs of inflammatory arthritis necessitating DMARD therapy at this time. Assessment & Plan (09/25/2021 4:39 PM EDT): Additional labs have not revealed immunologic signs of rheumatoid arthritis versus systemic lupus erythematosus versus Sjogren's syndrome. She was seen for the 2nd opinion rheumatology consultation at [facility] Rheumatology 09/23/2020 when she was fairly asymptomatic so there was no clear indication for adding any DMARDs at that time. She developed knee swelling the day following [facility] visit and got labs after visit with me on 09/24/2020 that revealed CRP at 9.9 (0-4.0). She did benefit from Celebrex and I suggested her to try carefully reducing Celebrex 200 mg twice daily to alternating dosing with once daily every other day and if no worsening further reduction to daily and every other day after few days as tolerated. The subsequent visit in early November with Dr. Lewis at [facility] and musculoskeletal ultrasound did not reveal any synovitis but (over)use related tendinitis. Avoid sick contacts. Joint protection, energy conservation. Gentle, regular exercise routine. Keep body weight in ideal range for her height. Daily sun protection. Favor topical over oral NSAIDs. She is interested in reviewing information about different options to DMARDs than Plaquenil that did not work for her. She read pamphlets on methotrexate, sulfasalazine and Arava and is hesitating to start any of them at this time. I have explained to her that prior to starting any of those medications I would prefer her to be vaccinated against hepatitis B (at least first dose) and COVID- 19. After recent clinical and ultrasonographic evaluation at [facility] by Dr. Lewis on 11/09/2020 there are no signs of inflammatory arthritis necessitating DMARD therapy at this time. Assessment & Plan (07/06/2021 10:54 AM EDT): Additional labs have not revealed immunologic signs of rheumatoid arthritis versus systemic lupus erythematosus versus Sjogren's syndrome. She was seen for the 2nd opinion rheumatology consultation at [facility] Rheumatology 09/23/2020 when she was fairly asymptomatic so there was no clear indication for adding any DMARDs at that time. She developed knee swelling the day following [facility] visit and got labs after visit with me on 09/24/2020 that revealed CRP at 9.9 (0-4.0). She did benefit from Celebrex and I suggested her to try carefully reducing Celebrex 200 mg twice daily to alternating dosing with once daily every other day and if no worsening further reduction to daily and every other day after few days as tolerated. The subsequent visit in early November with Dr. Lewis at [facility] and musculoskeletal ultrasound did not reveal any synovitis but (over)use related tendinitis. Avoid sick contacts. Joint protection, energy conservation. Gentle, regular exercise routine. Keep body weight in ideal range for her height. Daily sun protection. Favor topical over oral NSAIDs. She is interested in reviewing information about different options to DMARDs than Plaquenil that did not work for her. She read pamphlets on methotrexate, sulfasalazine and Arava and is hesitating to start any of them at this time. I have explained to her that prior to starting any of those medications I would prefer her to be vaccinated against hepatitis B (at least first dose) and COVID- 19. After recent clinical and ultrasonographic evaluation at [facility] by Dr. Lewis on 11/09/2020 there are no signs of inflammatory arthritis necessitating DMARD therapy at this time. She requested an excuse from work for next Monday-06/28/2021. Assessment & Plan (06/10/2021 9:56 AM EST): Additional labs have not revealed immunologic signs of rheumatoid arthritis versus systemic lupus erythematosus versus Sjogren's syndrome. She was seen for the 2nd opinion rheumatology consultation at [facility] [place] [facility] Rheumatology 09/23/2020 when she was fairly asymptomatic so there was no clear indication for adding any DMARDs at that time. She developed knee swelling the day following [facility] visit and got labs after visit with me on 09/24/2020 that revealed CRP at 9.9 (0-4.0). She did benefit from Celebrex and I suggested her to try carefully reducing Celebrex 200 mg twice daily to alternating dosing with once daily every other day and if no worsening further reduction to daily and every other day after few days as tolerated. The subsequent visit in early November with Dr. Lewis at [facility] [place] and musculoskeletal ultrasound did not reveal any synovitis but (over)use related tendinitis. Avoid sick contacts. Joint protection, energy conservation. Gentle, regular exercise routine. Keep body weight in ideal range for her height. Daily sun protection. Favor topical over oral NSAIDs. She is interested in reviewing information about different options to DMARDs than Plaquenil that did not work for her. She read pamphlets on methotrexate, sulfasalazine and Arava and is hesitating to start any of them at this time. I have explained to her that prior to starting any of those medications I would prefer her to be vaccinated against hepatitis B (at least first dose) and COVID- 19. After recent clinical and ultrasonographic evaluation at [facility] by Dr. Lewis on 11/09/2020 there are no signs of inflammatory arthritis necessitating DMARD therapy at this time. Assessment & Plan (04/04/2021 6:43 PM EST): Additional labs have not revealed immunologic signs of rheumatoid arthritis versus systemic lupus erythematosus versus Sjogren's syndrome. She was seen for the 2nd opinion rheumatology consultation at [facility] Rheumatology 09/23/2020 when she was fairly asymptomatic so there was no clear indication for adding any DMARDs at that time. She developed knee swelling the day following [facility] visit and got labs after visit with me on 09/24/2020 that revealed CRP at 9.9 (0-4.0). She did benefit from Celebrex and I suggested her to try carefully reducing Celebrex 200 mg twice daily to alternating dosing with once daily every other day and if no worsening further reduction to daily and every other day after few days as tolerated. The subsequent visit in early November with Dr. Lewis at [facility] [place] [place] and musculoskeletal ultrasound did not reveal any synovitis but (over)use related tendinitis. Avoid sick contacts. Joint protection, energy conservation. Gentle, regular exercise routine. Keep body weight in ideal range for her height. Daily sun protection. Favor topical over oral NSAIDs. She is interested in reviewing information about different options to DMARDs than Plaquenil that did not work for her. She read pamphlets on methotrexate, sulfasalazine and Arava and is hesitating to start any of them at this time. I have explained to her that prior to starting any of those medications I would prefer her to be vaccinated against hepatitis B (at least first dose) and COVID- 19. After recent clinical and ultrasonographic evaluation at [facility] by Dr. Lewis on 11/09/2020 there are no signs of inflammatory arthritis necessitating DMARD therapy at this time. Assessment & Plan (12/04/2020 10:22 PM EDT): Additional labs have not revealed immunologic signs of rheumatoid arthritis versus systemic lupus erythematosus versus Sjogren's syndrome. She was seen for the 2nd opinion rheumatology consultation at [facility] [place] Rheumatology 09/23/2020 when she was fairly asymptomatic so there was no clear indication for adding any DMARDs at that time. She developed knee swelling the day following [facility] visit and got labs after visit with me on 09/24/2020 that revealed CRP at 9.9 (0-4.0). She did benefit from Celebrex and I suggested her to try carefully reducing Celebrex 200 mg twice daily to alternating dosing with once daily every other day and if no worsening further reduction to daily and every other day after few days as tolerated. Avoid sick contacts. Joint protection, energy conservation. Gentle, regular exercise routine. Keep body weight in ideal range for her height. Daily sun protection. Favor topical over oral NSAIDs. She is interested in reviewing information about different options to DMARDs than Plaquenil that did not work for her. She read pamphlets on methotrexate, sulfasalazine and Arava and is hesitating to start any of them at this time. I have explained to her that prior to starting any of those medications I would prefer her to be vaccinated against hepatitis B (at least first dose) and COVID- 19. After recent clinical and ultrasonographic evaluation at [facility] [place] [facility] by Dr. Lewis on 11/09/2020 there are no signs of inflammatory arthritis necessitating DMARD therapy at this time. Assessment & Plan (10/27/2020 10:30 PM EDT): Additional labs have not revealed immunologic signs of rheumatoid arthritis versus systemic lupus erythematosus versus Sjogren's syndrome. She was seen for the 2nd opinion rheumatology consultation at [facility] Rheumatology 09/23/2020 when she was fairly asymptomatic so there was no clear indication for adding any DMARDs at that time. She developed knee swelling the day following [facility] visit and got labs after visit with me on 09/24/2020 that revealed CRP at 9.9 (0-4.0). I have prescribed her Celebrex 200 [address] in [address] of Relafen 500 mg twice daily with food that she did not find very helpful. She did benefit from Celebrex and I suggested her to try carefully reducing Celebrex 200 mg twice daily to alternating dosing with once daily every other day and if no worsening further reduction to daily and every other day after few days as tolerated. Avoid sick contacts. Joint protection, energy conservation. Gentle, regular exercise routine. Keep body weight in ideal range for her height. Daily sun protection. Favor topical over oral NSAIDs. She is interested in reviewing information about different options to DMARDs than Plaquenil that did not work for her. She read pamphlets on methotrexate, sulfasalazine and Arava and is hesitating to start any of them at this time. I have explained to her that prior to starting any of those medications I would prefer her to be vaccinated against hepatitis B (at least first dose) and COVID- 19. Assessment & Plan (10/13/2020 3:04 PM EDT): Additional labs have not revealed immunologic signs of rheumatoid arthritis versus systemic lupus erythematosus versus Sjogren's syndrome. She was seen for the 2nd opinion rheumatology consultation at [facility] Rheumatology 09/23/2020 when she was fairly asymptomatic so there was no clear indication for adding any DMARDs at that time. She developed knee swelling the day following [facility] visit and got labs after visit with me on 09/24/2020 that revealed CRP at 9.9 (0-4.0). I have prescribed her Celebrex [address] of Relafen 500 mg twice daily with food she did not find very helpful. Avoid sick contacts. Joint protection, energy conservation. Gentle, regular exercise routine. Keep body weight in ideal range for her height. Daily sun protection. Favor topical over oral NSAIDs. She is interested in reviewing information about different options to DMARDs than Plaquenil that did not work for her. She read pamphlets on methotrexate, sulfasalazine and Arava and is hesitating to start any of them at this time. I have explained to her that prior to starting any of those medications I would prefer her to be vaccinated against hepatitis B (at least first dose) and COVID- 19. Assessment & Plan (10/04/2020 11:16 PM EDT): Additional labs have not revealed immunologic signs of rheumatoid arthritis versus systemic lupus erythematosus versus Sjogren's syndrome. Due to ongoing low-grade wrist inflammation I want to make sure that she is offered disease modifying antirheumatic medication to reduce the risk of developing erosions such as methotrexate versus Arava and or sulfasalazine Avoid sick contacts. Joint protection, energy conservation. Gentle, regular exercise routine. Keep body weight in ideal range for her height. Daily sun protection. Since she did not find benefit from Voltaren or Relafen 500 mg twice daily with food I am offering her Celebrex 200 mg twice daily for at least 3 days and if no side effects carefully continue for-1-2 weeks and try to decrease dose to every other day. Favor topical over oral NSAIDs. She is interested in reviewing information about different options to DMARDs than Plaquenil that did not work for her. She read pamphlets on methotrexate, sulfasalazine and Arava and is hesitating to start any of them at this time. I have explained to her that prior to starting any of those medications I would prefer her to be vaccinated against hepatitis B (at least first dose) and COVID- 19. I have offered her 2nd opinion rheumatology consultation at [facility] to make sure that there are no additional diagnostic or therapeutic needs. She was just seen yesterday by Dr. Neely and got knee x-rays that did not reveal abnormalities of concern. Assessment & Plan (09/04/2020 4:17 PM EDT): Additional labs have not revealed immunologic signs of rheumatoid arthritis versus systemic lupus erythematosus versus Sjogren's syndrome. Due to ongoing low-grade wrist inflammation I want to make sure that she is offered disease modifying antirheumatic medication to reduce the risk of developing erosions such as methotrexate versus Arava and or sulfasalazine Avoid sick contacts. Joint protection, energy conservation. Gentle, regular exercise routine. Keep body weight in ideal range for her height. Daily sun protection. Since she did not find benefit from Voltaren I offered her Relafen 500 mg twice daily with food. Favor topical over oral NSAIDs. She is interested in reviewing information about different options to DMARDs than Plaquenil that did not work for her. She read pamphlets on methotrexate, sulfasalazine and Arava and is hesitating to start any of them at this time. I have explained to her that prior to starting any of those medications I would prefer her to be vaccinated against hepatitis B (at least first dose) and COVID- 19. I am offering her second opinion rheumatology consultation at [facility] to make sure that there are no additional diagnostic or therapeutic needs. Assessment & Plan (08/25/2020 9:06 PM EDT): Get additional labs to make sure she does not have immunologic signs of rheumatoid arthritis versus systemic lupus erythematosus versus Sjogren's syndrome. Due to ongoing low-grade wrist inflammation I want to make sure that she is offered disease modifying antirheumatic medication to reduce the risk of developing erosions such as methotrexate versus Arava and or sulfasalazine Avoid sick contacts. Joint protection, energy conservation. Gentle, regular exercise routine. Keep body weight in ideal range for her height. Daily sun protection. Since she did not find benefit from Voltaren I offered her Relafen 500 mg twice daily with food. Favor topical over oral NSAIDs. She is interested in reviewing information about different options to DMARDs then Plaquenil that did not work for her. She read pamphlets on methotrexate, sulfasalazine and Arava and is hesitating to start any of them at this time. I am offering her second opinion rheumatology consultation at [facility] or [facility] to make sure that there are no additional diagnostic or therapeutic needs. She wishes to think about this and try a new medication first. Assessment & Plan (07/12/2020 10:30 PM EDT): Get labs to check for interval changes. Avoid sick contacts. Joint protection, energy conservation. Gentle, regular exercise routine. Keep body weight in ideal range for her height. Daily sun protection. At the time of disease flare I suggested her to carefully use Voltaren 75 mg twice daily for the 7-14 days and once improved reduce the frequency and stop it. Favor topical over oral NSAIDs. She is interested in reviewing information about different options to DMARDs then Plaquenil that did not work for her. Pamphlets on methotrexate, sulfasalazine and Arava printed for review at home today. Assessment & Plan (05/18/2019 8:56 AM EST): Get labs to check for interval changes. Avoid sick contacts. Joint protection, energy conservation. Gentle, regular exercise routine. Keep body weight in ideal range for her height. Daily sun protection. At the time of disease flare I suggested her to carefully use nabumetone 750 mg twice daily for the 7-14 days and once improved reduce the frequency and stop it. Favor topical over oral NSAIDs. I have reminded her the offer of a slow acting disease modifying antirheumatic medication-Plaquenil that would reduce the frequency of flares, decrease joint pains, stiffness and fatigue. She is interested in reviewing that in more details-pamphlet provided again today. Assessment & Plan (02/12/2019 5:52 PM EST): Avoid sick contacts. Joint protection, energy conservation. Gentle, regular exercise routine. Keep body weight in ideal range for her height. Daily sun protection. At the time of disease flare I suggested her to carefully use nabumetone 750 mg twice daily for the 7-14 days and once improved reduce the frequency and stop it. Favor topical over oral NSAIDs. I have reminded her the offer a slow acting disease modifying antirheumatic medication-Plaquenil that would reduce the frequency of flares, decrease joint pains, stiffness and fatigue. She is interested in reviewing that in more details-pamphlet provided again today. 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 History of bunionectomy of right great toe 05/09 Acute pain of right knee 11/08/2017 Positive CARLENE (antinuclear antibody) 08/11/2017 Assessment & Plan (10/27/2020 10:27 PM EDT): I reviewed with Maxwell that low positive CARLENE in itself does not make any [...] her a second opinion rheumatology consultation at [facility] Rheumatology-she was seen on 09/23/[address] Crystal Neely and at that time did not have flare . She is awaiting visit with Dr. Lewis on 11/09/2020 for diagnostic/therapeutic ultrasound Assessment & Plan (09/04/2020 4:13 PM EDT): I reviewed with Maxwell that low positive CARLEEN in itself does not make any disease [...] her a second opinion rheumatology consultation at [facility] Rheumatology. Assessment & Plan (08/25/2020 8:59 PM EDT): I reviewed with Maxwell that low positive CARLENE in itself does not make any [...] effects, dosing and usual onset of action. Assessment & Plan (07/12/2020 10:21 PM EDT): I reviewed with Maxwell that low positive CARLENE in itself does not make any [...] effects, dosing and usual onset of action. Assessment & Plan (04/18/2019 10:09 AM EST): I reviewed with Maxwell that low positive CARLENE in itself does not make any [...] and prevent/reduce flares if disease already present. Assessment & Plan (02/12/2019 5:48 PM EST): I reviewed with Maxwell that low positive CARLENE in itself does not make any [...] and prevent/reduce flares if disease already present. Acute pain of right shoulder 08/11/2017 Acute pain of right wrist 07/19/2017 Acute pain of left wrist 07/19/2017 Assessment & Plan (05/18/2019 8:54 AM EST): Ice, rest, avoid prolonged, repetitive use. Use brace for extended work. Joint protection, energy conservation. Gentle, regular exercise routine. Avoid falls, injuries, overuse. She may benefit from topical cream such as Arnica, Biofreeze, Aspercreme versus medicated patches such as salonpas, icy hot patch 2-3 times daily and if necessary at bedtime x 3 weeks. Chronic pain of both knees 07/19/2017 Swelling of both knees 07/19/2017 Chronic fatigue 07/19/2017 Assessment & Plan (05/26/2024 9:43 PM EST): Avoid sick contacts. Keep up-to-date with age-appropriate screenings and preventive strategies. Daily sun protection. Well-balanced nutritionally diet. Proper hydration. Sleep hygiene. Gentle, regular exercise routine. Keep engaged in regular hobbies/favorite activities. Assessment & Plan (09/25/2021 4:40 PM EDT): Avoid sick contacts. Keep up-to-date with age-appropriate screenings and preventive strategies. Daily sun protection. Well-balanced nutritionally diet. Proper hydration. Sleep hygiene. Gentle, regular exercise routine. Keep engaged in regular hobbies/favorite activities. Assessment & Plan (10/04/2020 11:19 PM EDT): Avoid sick contacts. Keep up-to-date with age-appropriate screenings and preventive strategies. Daily sun protection. Well-balanced nutritionally diet. Proper hydration. Sleep hygiene. Gentle, regular exercise routine. Keep engaged in regular hobbies/favorite activities. Assessment & Plan (02/12/2019 5:43 PM EST): Avoid sick contacts. Keep up-to-date with age-appropriate screenings and preventive strategies. Daily sun protection. Well-balanced nutritionally diet. Proper hydration. Sleep hygiene. Gentle, regular exercise routine. Keep engaged in regular hobbies/favorite activities. Resolved Problems Problem Noted Date Diagnosed Date Resolved Date Class 1 obesity due to exces s calories with serious comorbidity and body mass index (BMI) of 30.0 to 30.9 in adult 11/24/2021 12/13/2021 Assessment & Plan (11/24/2021 10:20 AM EDT): Portion control. Limit concentrated sugars, saturated fats and calories in the diet. Keep well-hydrated. If unable to achieve expected goal consider formal dietary/nutritional support. Class 1 obesity due to exces s calories without serious comorbidity with body mass index (BMI) of 30.0 to 30.9 in adult 09/10/2021 Assessment & Plan (09/25/2021 4:39 PM EDT): Continue calorie count and diligent portion control. Limit concentrated sugars, saturated fats and calories in the diet. Keep well-hydrated. If unable to achieve expected goal consider formal dietary/nutritional support. Encounter for monitoring Lopez -2 selective NSAID therapy 10/23/2020 09/13/2022 Assessment & Plan (09/02/2022 2:47 PM EDT): Take the lowest dose, with least frequency, for shortest time. Remember to take it always with food. Favor topical over oral preparations. Assessment & Plan (05/05/2022 12:31 PM EST): Take the lowest dose, with least frequency, for shortest time. Remember to take it always with food. Favor topical over oral preparations. Assessment & Plan (01/12/2022 10:09 AM EDT): Take the lowest dose, with least frequency, for shortest time. Remember to take it always with food. Favor topical over oral preparations. Assessment & Plan (11/24/2021 10:20 AM EDT): Take the lowest dose, with least frequency, for shortest time. Remember to take it always with food. Favor topical over oral preparations. Assessment & Plan (09/25/2021 4:40 PM EDT): Take the lowest dose, with least frequency, for shortest time. Remember to take it always with food. Favor topical over oral preparations. Assessment & Plan (06/10/2021 9:58 AM EST): Take the lowest dose, with least frequency, for shortest time. Remember to take it always with food. Favor topical over oral preparations. Assessment & Plan (03/10/2021 9:59 AM EST): Take the lowest dose, with least frequency, for shortest time. Remember to take it always with food. Favor topical over oral preparations. Assessment & Plan (11/27/2020 3:23 PM EDT): Take the lowest dose, with least frequency, for shortest time. Remember to take it always with food. Favor topical over oral preparations. Assessment & Plan (10/23/2020 4:42 PM EDT): Take the lowest dose, with least frequency, for shortest time. Remember to take it always with food. Favor topical over oral preparations. Advice given about COVID-19 virus infection 08/25/2020 06/13/2021 Assessment & Plan (09/04/2020 4:19 PM EDT): I reviewed with Maxwell that as long as she did not have allergic reactions to prior vaccinations there is no contraindication to COVID-19 vaccination. Due to her reported difficulty tolerating allergy injections I suggested her to address it separately with her mva reactor operator head. I have reminded her that if she decides to go on any DMARDs I would prefer her to be vaccinated prior to starting it. Assessment & Plan (08/25/2020 9:10 PM EDT): I reviewed with Maxwell that as long as she did not have allergic reactions to prior vaccinations there is no contraindication to COVID-19 vaccination. Due to her reported difficulty tolerating allergy injections I suggested her to address it separately with her mva reactor operator head. Class 1 obesity due to exces s calories without serious comorbidity with body mass index (BMI) of 34.0 to 34.9 in adult 07/08/202008/2021 Assessment & Plan (07/06/2021 10:48 AM EDT): Continue diligent portion control. Limit concentrated sugars, saturated fats and calories in the diet. Keep well-hydrated. If unable to achieve expected goal consider formal dietary/nutritional support. Assessment & Plan (06/13/2021 7:50 PM EST): Congratulations on 3 pounds weight loss since last visit in early March 2021 and continue portion control. Limit concentrated sugars, saturated fats and calories in the diet. Keep well-hydrated. If unable to achieve expected goal consider formal dietary/nutritional support. Assessment & Plan (12/04/2020 10:18 PM EDT): Congratulations on 4 pounds weight loss within the last month-keep it off! Continue portion control. Limit concentrated sugars, saturated fats and calories in the diet. Keep well-hydrated. If unable to achieve expected goal consider formal dietary/nutritional support. Assessment & Plan (10/27/2020 10:28 PM EDT): Congratulations on 2 pounds weight loss since 10/02/2020-keep it off. Continue portion control. Limit concentrated sugars, saturated fats and calories in the diet. Keep well-hydrated. If unable to achieve expected goal consider formal dietary/nutritional support. Assessment & Plan (10/13/2020 2:54 PM EDT): Portion control. Limit concentrated sugars, saturated fats and calories in the diet. Keep well-hydrated. If unable to achieve expected goal consider formal dietary/nutritional support. Assessment & Plan (09/24/2020 4:24 PM EDT): Portion control. Limit concentrated sugars, saturated fats and calories in the diet. Keep well-hydrated. If unable to achieve expected goal consider formal dietary/nutritional support. Assessment & Plan (09/04/2020 4:13 PM EDT): Portion control. Limit concentrated sugars, saturated fats and calories in the diet. Keep well-hydrated. If unable to achieve expected goal consider formal dietary/nutritional support. Assessment & Plan (08/25/2020 9:00 PM EDT): Portion control. Limit concentrated sugars, saturated fats and calories in the diet. Keep well-hydrated. If unable to achieve expected goal consider formal dietary/nutritional support. Assessment & Plan (07/08/2020 8:52 AM EDT): Portion control. Limit concentrated sugars, saturated fats and calories in the diet. Keep well-hydrated. If unable to achieve expected goal consider formal dietary/nutritional support. Flat foot 01/25/2019 12/04/2020 Assessment & Plan (10/27/2020 10:31 PM EDT): Continue well fitting, supportive shoes with proper arch support. Work on reducing body weight as close as possible to ideal range for her height. Tendinitis of right knee 08/01/201809/2022 Inflammatory arthritis 11/03/201709/04 Encounters Date Type Department Care Team Description 11/12/2024 Telephone [facility] [address] [place] [address] Inrgis Johnson, DO Medication Question 10/23/2024 Telephone [facility] [address] [facility] [place] [address] Felicia Holder MA Cough (Started Breztri this morning and she has been coughing for about 20 min) 10/22/2024 2:20 PM EDT Office Visit [facility] [address] [place] [address] [place] [address] Isha Poretr MD Moderate persistent asthma with acute exacerbation (Primary Dx) 10/22/2024 Telephone [facility] [address] [place] [address] [place] [address] Isha Porter MD Fax notes 10/22/2024 Telephone [facility] 10 [facility] [place] [address] Isha Porter MD 10/08/2024 11:00 AM EDT - 10/08/2024 11:59 PM EDT Hospital Encounter [facility] [address] [place] [address] Isha Porter MD Discharge Disposition: Home or Self Care 10/08/2024 Transcribe Orders [facility] [address] [place] [address] Isha Porter MD 10/08/2024 Telephone [facility], Allergy and Critical Care Medicine [address] [place] [address] Isha Porter MD from Last 3 Months Family History Medical History Relation Comments No Known Problems Brother 1 No Known Problems Brother 2 No Known Problems Brother 3 Osteoarthritis Father No Known Problems Mother No Known Problems Sister 1 No Known Problems Sister 2 No Known Problems Sister 3 Breast cancer Neg Hx Relation Status Comments Brother 1 Alive Brother 2 Alive Brother 3 Alive Father Alive Mother Alive Sister 1 Alive Sister 2 Alive Sister 3 Alive Social History Tobacco Use Types Packs/Day Years Used Date Smoking Tobacco: Never Smokeless Tobacco: Never Tobacco Cessation:Counseling Given: Not Answered Alcohol Use Standard Drinks/Week Comments Yes 2 [...] Orientation Straight 10/13/2019 8: 18 AM EDT Last Filed Vital Signs Vital Sign Reading Time Taken Comments Blood Pressure 100/60 10/22/2024 2:21 PM EDT Pulse 80 10/22/2024 2:21 PM EDT Temperature 36.6 C (97.9 F) 10/22/2024 2:21 PM EDT Respiratory Rate 20 05/25/2023 6:40 PM EST Oxygen Saturation 98% 10/22/2024 2:21 PM EDT Inhaled Oxygen Concentration - - Weight 77.1 kg (170 lb) 10/22/2024 2:21 PM EDT Height 167.6 cm (5' 6 ) 10/22/2024 2:21 PM EDT Body Mass Index 27.44 10/22/2024 2:21 PM EDT Plan of Treatment Upcoming Encounters Date Type Department Care Team (Late st Contact Info) Description 03/24/2025 9:00 AM EST Nurse Only [facility] [address] [place] [address] [place] [address] Patrick Henson MD [address] [place] [address] [email or web address] Health Maintenance Due Date Last Done Comments DEPRESSION SCREENING 2001 HIV ONE-TIME SCREENING (18-6 5 YEARS) 2007 PNEUMOCOCCAL VACCINES (0-49 years) (1 of 2 - PCV) 2008 PAP SMEAR 2010 INFLUENZA VACCINE (#1) 2024 COVID-19 VACCINE ( - 2023-2 5 season) 2024 SCREENING FOR DIABETES 04/30/2027 04/30/2024 Adult Td,Tdap Booster 04/20/2032 04/20/2022 , 02/13/2008 HEPATITIS C SCREENING Completed 08/19/2020 SMOKING STATUS SCREENING (On ce After 26 Yrs) Completed 10/22/2024 HEPATITIS A VACCINES Aged Out No long er eligible based on patient's age to complete this topic HIB VACCINES Aged Out No longer eligi ble based on patient's age to complete this topic MENINGOCOCCAL VACCINES (ACWY) Aged Out No longer eligible based on patient's age to complete this topic MENINGOCOCCAL VACCINES (B) Aged Out N o longer eligible based on patient's age to complete this topic Medical Devices Implanted Type Area Management Accountant Device Identifier Shelf Expiration Date Model / Serial / Lot Screw Screw Bilateral: Foot Procedures Procedure Name Priority Date/Time Associated Diagnosis Comments PULMONARY FUNCTION TEST Routine 10/08/2024 12:11 PM EDT Chronic cough HEPATITIS C ANTIBODY, QUALITATIVE Routine 08/19/2020 9:33 AM EDT Inflammatory polyarthritis Positive CARLENE (antinuclear antibody) from Last 3 Months or Most Recently Relevant to Health Maintenance Results * Pulmonary Function Test Reason for Exam: Cough; Performing Location: [facility] (10/08/2024 12:11 PM EDT) FEV1 FVC FEV1/FVC TLC DLCO Anatomical Region Laterality Modality Other Impressions 10/08/2024 12:11 PM EDT METHACHOLINE CHALLENGE TESTING A standard methacholine challenge study was performed according to ATS criteria on this 34 y.o. year-old female for evaluation of chronic cough. TECHNIQUE: After measurements of baseline spirometry, serial spirometry measurements were performed with the intervening administration of serially increasing doses of methacholine. RESULTS: Baseline spirometry is starting with an FEV1 is 3.68 L. After the administration of serially increasing doses of methacholine, FEV1 dropped 20% to 2.95 L. She had increasing cough with each consecutive dose of methacholine after the 0.0625 mg/mL dose. The patient was given albuterol with a acosta nebulizer that did not improve her FEV1 back to baseline and had increasing coughing. We then went off protocol and added Atrovent which did improve her symptoms and brought her FEV1 back to normal. PD-20 at 4. IMPRESSION: Positive methacholine challenge test would be consistent with a diagnosis of cough variant asthma. Recommend clinical correlation. us Isha Porter MD PFT ORDERABLES Final Result * Hepatitis C antibody, qualitative (08/19/2020 9:33 AM EDT) HCV NON-REACTIV E NON-REACTI VE [facility] Blood 08/19/2020 9:33 AM EDT 08/19/2020 9:42 AM EDT us Susanna Hyatt MD LAB BLOOD ORDERABLES Fin al Result [facility] [address] [place] [address] from Last 3 Months or Most Recently Relevant to Health Maintenance [place] [address] [place] [address] [employer] [facility] DIRECT [email or web address] PUBLIC PLANS [facility] Care Teams Daycare Worker Relationship Specialty Start Date End Date Ingris Johnson DO [address] [place] [id number] PCP - General Family Medicine 10/08/24 Additional Source Comments The information contained in this document represents components of the legal health record. It is not the complete legal health record.[facility]
--- OUTSIDE RECORDS SUMMARY | 2024-12-29 09:51 | XMS_ITS | Encounter Summary ---
Author Organization [facility] Address [address] [place] [phone] Phone Care Team Providers Care Bank Runner Name Role Phone Fallon Portillo Primary Care Provider [phone] Yisel Boles MD Unavailable [phone] Ingris Johnson DO Primary Care Provider [phone] Ingris Johnson DO Primary Care Provider [phone] Encounter Details Date Type Department Care Team (Late st Contact Info) Description 05/25/2023 Procedure [facility], Ct Scan - [address] [id number] Social History Tobacco Use Types Packs/Day Years [...] AM EDT documented as of this encounter Functional Status * Calculated C-SSRS Risk Score (Lifetime/Recent) Answer Date of Assessment Author No Risk Indicated 05/25/2023 2:05 PM EST Johanna Elias, KATY * Dane Suicide Severity Rating Scale (Screener/Recent Self-Report) Question Answer Date of Assessment Author 1. Wish to be (Past 1 Month) No 05/25/2023 2:05 PM EST Johanna Elias, KATY 2. Non-Specific Active Suici janette Thoughts (Past 1 Month) No 05/25/2023 2:05 PM EST Johanna Elias, KATY 6. Suicidal Behavior (Lifetime) No 2:05 PM EST Johanna Elias, KATY documented as of this encounter Plan of Treatment Upcoming Encounters Date Type Department Care Team (Late st Contact Info) Description 03/24/2025 9:00 AM EST Nurse Only [facility] [address] [place] [id number] Patrick Henson MD [address] [place] [id number] documented as of this encounter Visit Diagnoses Not on filedocumented in this encounter Additional Health Concerns Infection Onset Date Last Indicated Resolved Time CoV-Risk 05/25/2023 05/25/2023 06/05/2023 1:24 AM EST documented as of this encounter Care Teams Bank Runner Relationship Specialty Start Date End Date Fallon Portillo PA [email or web address] PCP - General Physician Flat Polisher 09/02/22 05/01/24 Ingris Johnson DO [address] [place] [id number] [email or web address] PCP - General Family Medicine 05/02/24 10/07/24 Ingris Johnson DO [address] [place] [address] PCP - General Family Medicine 10/08/24 Yisel Boles MD [address] [place] [address] [email or web address] Insurance Assigned Provider 07/15/23 03/20/24 documented as of this encounter Additional Source Comments The information contained in this document represents components of the legal health record. It is not the complete legal health record.[facility]
--- OUTSIDE RECORDS SUMMARY | 2024-12-29 09:51 | XMS_ITS | Encounter Summary ---
Author Organization [facility] Address [address] [place] [address] [place] [address] Phone Care Team Providers Care Entertainment Manager Name Role Phone Alec Mayurikat Flores CNP Primary Care Provider + Mayuri Michael INSIDE ACCOUNT REPRESENTATIVE Unavailable [phone] Tai Garcia MD Unavailable [phone] Barak Cheema DPM Unavailable Unavailable Fallon Portillo Primary Care Provider [phone] Yisel Boles MD Unavailable [phone] Ingris Johnson DO Primary Care Provider [phone] Ingris Johnson DO Primary Care Provider [phone] Encounter Details Date Type Department Care Team (Latest Contact Info) Description 09/23/2020 Ancillary Orders [facility] Rheumatology [address], 4[address] Floor, [address] [place] [address] Crystal Neely MD [address] [place] [address] [email or web address] Chronic pain of both knees Social History Tobacco Use Types Packs/Day Years [...] Allergy and Critical Care Medicine 10 [facility] [place] [address] [place] [address] Patrick Henson MD [address] [place] [address] [email or web address] documented as of this encounter Results * XR KNEE 3 VIEW (LEFT) (09/23/2020 3:48 PM EDT) Anatomical Region Laterality Modality Knee Left Computed Radiogr aphy 09/23/2020 3:57 PM EDT Impressions 09/23/2020 3:58 PM EDT Normal examination Narrative 09/23/2020 3:58 PM EDT TECHNIQUE: XR KNEE 3 VIEW (LEFT), XR KNEE 3 VIEW (RIGHT) COMPARISON: FINDINGS: No bone, joint, or soft tissue abnormality is seen. Procedure Note Reece Singer MD - 09/23/2020 TECHNIQUE: XR KNEE 3 VIEW (LEFT), XR KNEE 3 VIEW (RIGHT) COMPARISON: FINDINGS: No bone, joint, or soft tissue abnormality is seen. IMPRESSION: Normal examination Crystal Chin ARZATE IMG XR LOWER EXTREMITY Final Re sult documented in this encounter Visit Diagnoses Diagnosis Chronic pain of both knees Chronic pain of both knees documented in this encounter Additional Health Concerns Infection Onset Date Last Indicated Resolved Time CoV-Exposed Comment:Recent close contact documented in the Travel/Symptom Screening Form 04/10/2021 04/25/2021 1:24 AM EST CoV-Risk 05/25/2023 05/25/2023 06/05/2023 1:24 AM EST documented as of this encounter Care Teams Entertainment Manager Relationship Specialty Start Date End Date Mayuri Michael CNP [address] [place] [address] [email or web address] PCP - General 01/24/17 09/01/22 Fallon Portillo PA [address] [place] [address] [email or web address] PCP - General Physician Plaster Pattern Caster 09/02/22 05/01/24 Ingris Johnson DO [address] [place] [address] [email or web address] PCP - General Family Medicine 05/02/24 10/07/24 Ingris Johnson DO [address] [place] [address] PCP - General Family Medicine 10/08/24 Mayuri Michael CNP [address] [place] [address] [email or web address] Historical LMR Provider 01/26/1704/17 Tai Garcia MD [address] [place] [address] Historical LMR Provider 01/26/17 Barak Cheema DPM [address] [place] [address] Historical LMR Provider 01/26/1704/17/21 Yisel Boles MD [address] [place] [address] [email or web address] Insurance Assigned Provider 07/15/23 03/20/24 documented as of this encounter Additional Source Comments The information contained in this document represents components of the legal health record. It is not the complete legal health record.[facility]
--- OUTSIDE RECORDS SUMMARY | 2024-12-29 09:51 | XMS_ITS | Encounter Summary ---
Author Organization [facility] Address [address] [place] [address] Phone Care Team Providers Care Technology Project Manager Name Role Phone Fallon Portillo Primary Care Provider Yisel Boles MD Unavailable [phone] Ingris Johnson DO Primary Care Provider [phone] Ingris Johnson DO Primary Care Provider [phone] Encounter Details Date Type Department Care Team (Late st Contact Info) Description 04/25/2023 Procedure Pass [facility], [address] [address] Social History Tobacco Use Types Packs/Day Years [...] Critical Care Medicine [address] [place] [address] Patrick Henson MD 10 [facility] 2nd [place] [address] [email or web address] documented as of this encounter Visit Diagnoses Not on filedocumented in this encounter Additional Health Concerns Infection Onset Date Last Indicated Resolved Time CoV-Risk 05/25/2023 05/25/2023 06/05/2023 1:24 AM EST documented as of this encounter Care Teams Technology Project Manager Relationship Specialty Start Date End Date Fallon Portillo PA [email or web address] PCP - General Physician Absorption Operator 09/02/22 05/01/24 Ingris Johnson DO [address] [place] [address] PCP - General Family Medicine 05/02/24 10/07/24 Ingris Johnson DO [address] [place] [address] PCP - General Family Medicine 10/08/24 Yisel Boles MD [address] [place] [address] Insurance Assigned Provider 07/15/23 03/20/24 documented as of this encounter Additional Source Comments The information contained in this document represents components of the legal health record. It is not the complete legal health record.[facility]
== END 2024-12-29 09:51 | disposition home or self-care (01) ==
PROVIDERS: Emergency Provider Emergency Medicine; PCP Family Medicine
DX: T22.212A Burn of second degree of left forearm, initial encounter (principal); T31.0 Burns involving less than 10% of body surface; X13.1XXA Other contact with steam and other hot vapors, initial encounter; Y93.9 Activity, unspecified; Y92.9 Unspecified place or not applicable; Y99.8 Other external cause status
CPT/HCPCS: 99282; 99283

== ENCOUNTER 2025-02-05 13:08 | Outpatient (REF) | payer OTHER, SELFPAY ==
--- NOTE | ~2025-02-05 | US_ITS ---
CLINICAL HISTORY: AUB Transabdominal and transvaginal pelvic ultrasound Comparison: None Findings: Uterus 8.8 x 3.9 x 4.3 cm. Endometrium 5 mm. No significant free fluid noted. Right ovary 4.4 x 2.7 x 2.9 cm. 2.3 cm cyst with internal echoes. Complex 1.5 cm follicle also noted. Recommend follow-up ultrasound 1-2 months. Left ovary 3.2 x 1.7 x 1.9 cm. 1.8 cm dominant follicle. Impression: Complex right ovarian cyst and follicles Recommend follow-up 1-2 months This document has been electronically signed by: German Spaulding MD on 02/06/2025 00:17:27
--- OUTSIDE RECORDS SUMMARY | 2025-02-05 16:45 | XMS_ITS | Encounter Summary ---
Author Organization [facility] Address [address] [facility] [address] [place] [address] Phone Care Team Providers Care Senior Cytogenetic Technologist Name Role Phone RaMayuri black Sandra TIMMONS Primary Care Provider + Fallon Poritllo Primary Care Provider [phone] Yisel Boles MD Unavailable [phone] Ingris Johnson DO Primary Care Provider [phone] Ingris Johnson DO Primary Care Provider [phone] Encounter Details Date Type Department Care Team (Late st Contact Info) Description 06/30/2021 Ancillary Orders [facility] Rheumatology 22 [place] [address] Susanna Hyatt MD 22 [facility], [address] [place] [address] [email or web address] Social History Tobacco Use Types Packs/Day Years [...] Pulmonary, Allergy and Critical Care Medicine 10 [place] [address] Patrick Henson MD 10 [facility] 2nd [place] [address] documented as of this encounter Visit Diagnoses Not on filedocumented in this encounter Additional Health Concerns Infection Onset Date Last Indicated Resolved Time CoV-Risk 05/25/2023 05/25/2023 06/05/2023 1:24 AM EST documented as of this encounter Care Teams Senior Cytogenetic Technologist Relationship Specialty Start Date End Date Mayuri Michael CNP [address] [place] [address] [email or web address] PCP - General 01/24/17 09/01/22 Fallon Portillo PA [address] [place] [address] [email or web address] PCP - General Physician Gas Welding Equipment Mechanic 09/02/22 05/01/24 Ingris Johnson DO [address] [place] [address] PCP - General Family Medicine 05/02/24 10/07/24 Ingris Johnson DO [address] [place] [address] PCP - General Family Medicine 10/08/24 Ysiel Boles MD [address] [place] [address] Insurance Assigned Provider 07/15/23 03/20/24 documented as of this encounter Additional Source Comments The information contained in this document represents components of the legal health record. It is not the complete legal health record.[facility]
--- OUTSIDE RECORDS SUMMARY | 2025-02-05 16:45 | XMS_ITS | Encounter Summary ---
Author Organization [employer] Address [address] [facility] [address] 7t [place] [address] Care Team Providers Care Marine Equipment Research Engineer Name Role Phone Ingris Johnson DO Primary Care Provider [phone] Encounter Details Date Type Department Care Team (Late st Contact Info) Description 04/06/2024 Orders Only [facility] [address] [place] [address] Ingris Johnson DO [address] [place] [address] Social History Tobacco Use Types Packs/Day Years [...] Team (Late st Contact Info) Description 03/24/2025 8:30 AM EST Office Visit [facility] [address] [place] [address] Aletha Haddad documented as of this encounter Procedures Procedure Name Priority Date/Time Associated Diagnosis Comments COMPREHENSIVE METABOLIC PANEL Routine 03/29/2024 10:45 AM EST CBC WITH AUTO DIFFERENTIAL Routine 03/29/2024 10:45 AM EST documented in this encounter Results * Comprehensive Metabolic Panel (03/29/2024 10:45 AM EST) Blood Venous blood specimen / Unknown Ingris Johnson DO LAB BLOOD ORDERABLES Final Res ult * CBC auto differential (03/29/2024 10:45 AM EST) Blood Venous blood specimen / Unknown us Ingris Johnson DO LAB BLOOD ORDERABLES Final Res ult documented in this encounter Visit Diagnoses Not on filedocumented in this encounter Care Teams Marine Equipment Research Engineer Relationship Specialty Start Date End Date Ingris Johnson DO [address] [place] [address] PCP - General Family Medicine 01/08/24 documented as of this encounter
--- OUTSIDE RECORDS SUMMARY | 2025-02-05 16:45 | XMS_ITS | Clinical Summary ---
Author Organization [address] [facility] Address [address] [place] [address] Phone Care Team Providers Care Handtools Repairer Name Role Phone Ingris Johnson MD Primary Care Provider [phone] Encounters Date Type Department Care Team Description 11/29/2024 Telephone Orthopedic Surgery [facility] [address] [facility] [address] [place] [address] Yaniv Gonzales DPRadha from Last 3 Months Social History Tobacco [...] patient's age to complete this topic Insurance [facility] [employer] Care Teams Handtools Repairer Relationship Specialty Start Date End Date Ingris Johnson MD PCP - General Family Medicine 07/05/24
--- OUTSIDE RECORDS SUMMARY | 2025-02-05 16:45 | XMS_ITS | Encounter Summary ---
Author Organization [employer] Address [address] [facility] [address] 7t [place] [address] Care Team Providers Care Operations Trainer Name Role Phone Fallon Portillo PA-C Primary Care Provider Ingris Tejeda DO Primary Care Provider [phone] Encounter Details Date Type Department Care Team (Late st Contact Info) Description 08/28/2023 Orders Only [facility] [address] [place] [address] Fallon Portillo PA-C Social History Tobacco Use [...] 03/24/2025 8:30 AM EST Office Visit [facility] [address] [place] [address] Aletha Haddad documented as of this encounter Procedures Procedure Name Priority Date/Time Associated Diagnosis Comments SED RATE BY MODIFIED WESTERGREN Routine 08/28/2023 2:03 PM EDT CBC WITH AUTO DIFFERENTIAL Routine 08/28/2023 12:00 PM EDT documented in this encounter Results * Sed Rate by Modified Westergren (08/28/2023 2:03 PM EDT) Blood Venous blood specimen / Unknown us Fallon Portillo PA-C LAB BLOOD ORDERABLES Final Result * CBC auto differential (08/28/2023 12:00 PM EDT) Blood Venous blood specimen / Unknown us Fallon Portillo PA-C LAB BLOOD ORDERABLES Final Result documented in this encounter Visit Diagnoses Not on filedocumented in this encounter Care Teams Operations Trainer Relationship Specialty Start Date End Date Fallon Portillo PA-C PCP - General Family Medicine 06/20/22 01/07/24 Ingris Johnson DO [address] [place] [address] PCP - General Family Medicine 01/08/24 documented as of this encounter
--- OUTSIDE RECORDS SUMMARY | 2025-02-05 16:45 | XMS_ITS | Clinical Summary ---
Author Organization [employer] Address [address] [place] [address] 7t [place] [address] Care Team Providers Care Child And Adolescent Psychologist Name Role Phone Ingris Johnson DO Primary Care Provider [phone] Allergies Active Allergy Reactions Criticality Noted Date Comments Fluticasone Other 12/27/2016 Other reaction(s): epistaxis Nose Bleeds Latex Hives 12/27/2016 Lidocaine Rash Low 10/22/2024 Other 02/02/2024 Dissolvable stitches Oxycodone-Acetaminophen Itching,Rash Low 12/27/2016 Other reaction(s): hives Penicillin G Anaphylaxis High 12/27/2016 Other reaction(s): hives-as a child [place] Oil Unknown 08/01/2022 Vancomycin Itching,Rash Low 12/27/2016 [...] UNABLE TO FIND Nitric Oxide 4 Active Keyes-3 Fatty Acids (Fish Oil) 1000 MG capsule [...] Patient verbalizes understanding and will go to [facility] ED for in person evaluation at this [...] sinus. Vitamin D deficiency 10/16/2019 Inflammatory polyarthropathy (CMS/HCC) 9 Overview (08/21/2023): Seen by rheum - labs have not revealed immunologic signs of rheumatoid arthritis versus systemic lupus erythematosus versus Sjogren's syndrome. She was seen for the 2nd opinion rheumatology consultation at [facility] Rheumatology 09/23/2020 when she was fairly asymptomatic so there was no clear indication for adding any DMARDs at that time. She did benefit from Celebrex. After clinical and ultrasonographic evaluation at [facility] by Dr. Lewis on 11/09/2020 there are [...] her a second opinion rheumatology consultation at [facility] Rheumatology-she was seen on 09/23/[address] Crystal Neely and at that time did not have flare . Resolved Problems Problem Noted Date Diagnosed Date Resolved Date Influenza A 05/09/2024 05/28/2024 Encounters Date Type Department Care Team Description 12/30/2024 Telephone [place] [facility] [facility] [address] [place] [address] Ingris Johnson DO 11/29/2024 9:45 AM EDT Office Visit [facility] MEDICAL [address] [place] [address] Ingris Johnson DO Abnormal uterine bleeding (AUB) (Primary Dx); Cough variant asthma 11/28/2024 Travel 11/22/2024 Telephone [facility] MEDICAL [address] [place] [address] Ingris Johnson DO period issues (ongoing for 3 weeks) from Last 3 Months Immunizations Immunization Administration [...] Description 03/24/2025 8:30 AM EST Office Visit [place] [facility] [address] [place] [address] Aletha Haddad Health Maintenance Due Date Last [...] 05/08/2025 05/08/2024 Depression Screening 07/08/2025 07/08/2024, 07/09/19 25 Family Planning (PISQ) 07/08/2025 07/08/2024 SDOH Screening [...] 11:07 AM EDT Abnormal uterine bleeding (AUB) Full PROPHYLAXIS - ADULT Routine 09/16/2024 9:20 [...] Health Maintenance Results * CBC auto differential [[id number]] (11/29/2024 11:07 AM EDT) White Blood Cell [...] 11/29/2024 Narrative Resulting Agency Comment Performed at: - [facility] [id number] Humid System Operator: Sonya Bear MD, Phone: [phone] [facility] LAB BLOOD ORDERABLES Final Res ult Performing Organization Address [facility] Co de Phone Number [facility] 1 * Pap - Age Guideline for Cervical Cancer and STDs (Aptima??) [[id number]] (07/08/2024 12:00 AM EDT) Age Guideline ACOG Testing 30-65 [facility] 1 ThinPrep vial (Cervical cells) 07/08/2024 07/08/2024 Comment:Cervical cells Narrative [facility] 1 - 07/10/2024 2:05 PM EDT Performed at: - [facility] [address], [address], [place], [place] [id number] Humid System Operator: Daniel Mace MD, Phone: [phone] Specimen Comment: [id number] Specimen Comment: Source.............Cervix Specimen Comment: LMP / Prev Treat...HNP=[id number] Specimen Comment: No. of containers..01 ThinPrep Vial [facility] CYTOLOGY ORDERABLES Final Result Performing Organization Address [facility] Co de Phone Number [facility] 1 * Image Guided Pap, Aptima HPV w/Reflex to HPV Genotypes 16 and 18,45 (07/08/2024 12:00 AM EDT) Diagnosis [facility] 1 Comment:NEGATIVE FOR INTRAEP ITHELIAL LESION OR MALIGNANCY. Adequacy: [facility] 1 Comment: Satisfactory for evaluation. Endocervical and/or squamous metaplastic cells (endocervical component) are present. Clinician provided ICD-10: [facility] 1 Comment:Z12.4 Performed by: [facility] 1 Comment:Lisa Mendoza [facility] otechnologist (ASCP) Cytology Comment . [facility] 1 [...] 07/10/2024 2:05 PM EDT Performed at: - [facility] [address], [place], [place] [id number] Humid System Operator: Daniel Mace MD, Phone: [phone] Performed at: - [facility] [address], [address], [place], [place] [id number] Humid System Operator: Daniel Mace MD, Phone: [phone] Ingris INIGUEZ CYTOLOGY ORDERABLES Final Result Performing Organization Address City/[facility]/ZIP Co de Phone Number [facility] 1 [facility] * Hepatitis C antibody, qualitative (08/19/2020 9:33 AM EDT) HCV NON-REACTI VE NON-REACTI VE [facility] 08/19/2020 9:33 AM EDT us Susanna Hyatt MD HISTORICAL/NON ORDERABLE LABS Final Result [facility] [address] from Last 3 Months or Most Recently Relevant to Health Maintenance Insurance [facility] - HSN PARTIAL (MEDICAID) Care Teams Child And Adolescent Psychologist Relationship Specialty Start Date End Date Ingris Johnson DO [address] [place] [address] PCP - General Family Medicine 01/08/24
--- OUTSIDE RECORDS SUMMARY | 2025-02-05 16:45 | XMS_ITS | Encounter Summary ---
Author Organization [employer] Address [address] [place] [address] 7t [place] [address] Care Team Providers Care Campus Manager Name Role Phone Fallon Portillo PA-C Primary Care Provider Ingris Tejeda DO Primary Care Provider Encounter Details Date Type Department Care Team (Late st Contact Info) Description 04/19/2023 Orders Only [facility] [address] [place] [address] Fallon Portillo PA-C Social History Tobacco Use [...] Description 03/24/2025 8:30 AM EST Office Visit [facility] [address] [place] [address] Aletha Haddad documented as of this encounter Procedures Procedure Name Priority Date/Time Associated Diagnosis Comments SED RATE BY MODIFIED WESTERGREN Routine 04/18/2023 documented in this encounter Results * Sed Rate by Modified Westergren (04/18/2023) Blood Venous blood specimen / Unknown us Fallon Portillo PA-C LAB BLOOD ORDERABLES Edited Result - Final documented in this encounter Visit Diagnoses Not on filedocumented in this encounter Care Teams Campus Manager Relationship Specialty Start Date End Date Fallon Portillo PA-C PCP - General Family Medicine 06/20/22 01/07/24 Ingris Johnson DO [address] [place] [address] PCP - General Family Medicine 01/08/24 documented as of this encounter
--- OUTSIDE RECORDS SUMMARY | 2025-02-05 16:45 | XMS_ITS | Encounter Summary ---
Author Organization [employer] Address [address] [facility] 7t [place] [address] Care Team Providers Care Manager Of Recruiting Name Role Phone Fallon Portillo PA-C Primary Care Provider Ingris Tejeda DO Primary Care Provider [phone] Encounter Details Date Type Department Care Team (Late st Contact Info) Description 05/23/2023 Orders Only [facility] MEDICAL [address] [place] [address] Fallon Portillo PA-C Acute pain of right [...] Description 03/24/2025 8:30 AM EST Office Visit [facility] DENTAL [address] [place] [address] Aletha Haddad documented as of this encounter [...] knee documented in this encounter Care Teams Manager Of Recruiting Relationship Specialty Start Date End Date Fallon Portillo PA-C PCP - General Family Medicine 06/20/22 01/07/24 Ingris Johnson DO [address] [place] [address] PCP - General Family Medicine 01/08/24 documented as of this encounter
--- OUTSIDE RECORDS SUMMARY | 2025-02-05 16:45 | XMS_ITS | Encounter Summary ---
Author Organization [facility] Address [address] [place] [address] [place] [address] Phone Care Team Providers Care Lock And Dam Repairer Name Role Phone Alec Mayuri Sandra TIMMONS Primary Care Provider + Mayuri Michael BILLBOARD POSTER Unavailable [phone] Tai Garcia MD Unavailable Barak Cheema DPM Unavailable Unavailable Fallon Portillo Primary Care Provider [phone] Yisel Boles MD Unavailable [phone] Ingris Johnson DO Primary Care Provider [phone] Ingris Johnson DO Primary Care Provider [phone] Encounter Details Date Type Department Care Team (Latest Contact Info) Description 02/11/2019 Ancillary Orders [facility] Rheumatology [address] [place] [address] Susanna Hyatt MD [address] [facility], [address] [place] [address] [email or web address] Chronic pain in right foot; Inflammatory [...] Pulmonary, Allergy and Critical Care Medicine [address] [place] [address] Patrick Henson MD [address] [place] [address] documented as of this encounter Results * [...] documented as of this encounter Care Teams Lock And Dam Repairer Relationship Specialty Start Date End Date Mayuri Michael CNP [address] [place] [address] [email or web address] PCP - General 01/24/17 09/01/22 Fallon Portillo PA [address] [place] [address] [email or web address] PCP - General Physician Talent Solutions Manager 09/02/22 05/01/24 Ingris Johnson DO [address] [place] [address] [email or web address] PCP - General Family Medicine 05/02/24 10/07/24 Ingris Johnson DO [address] [place] [address] PCP - General Family Medicine 10/08/24 Mayuri Michael CNP [address] [place] [address] [email or web address] Historical LMR Provider 01/26/1704/17 Tai Garcia MD [address] [place] [address] Historical LMR Provider 01/26/17 Barak Cheema DPM [address] [place] [address] Historical LMR Provider 01/26/1704/17/21 Yisel Boles MD [address] [place] [address] [email or web address] Insurance Assigned Provider 07/15/23 03/20/24 documented as of this encounter Additional Source Comments The information contained in this document represents components of the legal health record. It is not the complete legal health record.[facility]
--- OUTSIDE RECORDS SUMMARY | 2025-02-05 16:45 | XMS_ITS | Encounter Summary ---
Author Organization [facility] Address [address] [facility] [address] [place] [address] Phone Care Team Providers Care Grocery Cashier Name Role Phone RaMayuri black Sandra TIMMONS Primary Care Provider + Fallon Portillo Primary Care Provider [phone] Yisel Boles MD Unavailable [phone] Ingris Johnson DO Primary Care Provider [phone] Ingris Johnson DO Primary Care Provider [phone] Encounter Details Date Type Department Care Team (Latest Contact Info) Description 07/05/2021 Ancillary Orders [facility] Rheumatology 22 [place] [address] Susanna Hyatt MD 22 [facility], [address] [place] [address] [email or web address] Inflammatory polyarthritis Social History Tobacco Use [...] Pulmonary, Allergy and Critical Care Medicine 10 [facility] [place] [address] [place] [address] Patrick Henson MD 10 [facility] 2nd [place] [address] documented as of this encounter Results * [...] documented as of this encounter Care Teams Grocery Cashier Relationship Specialty Start Date End Date Mayuri Michael CNP [address] [place] [address] [email or web address] PCP - General 01/24/17 09/01/22 Fallon Portillo PA [address] [place] [address] [email or web address] PCP - General Physician Pattern Perforating Machine Operator 09/02/22 05/01/24 Ingris Johnson DO 73 [place] [address] [email or web address] PCP - General Family Medicine 05/02/24 10/07/24 Ingris Johnson DO [address] [place] [address] PCP - General Family Medicine 10/08/24 Yisel Boles MD [address] [place] [address] [email or web address] Insurance Assigned Provider 07/15/23 03/20/24 documented as of this encounter Additional Source Comments The information contained in this document represents components of the legal health record. It is not the complete legal health record.[facility]
--- OUTSIDE RECORDS SUMMARY | 2025-02-05 16:45 | XMS_ITS | Encounter Summary ---
Author Organization [facility] Address [address] [place] [address] Phone Care Team Providers Care Operations Forester Name Role Phone Mayuri Michael CNP Primary Care Provider + Fallon Portillo Primary Care Provider [phone] Yisel Boles MD Unavailable [phone] Ingris Johnson DO Primary Care Provider [phone] Ingris Johnson DO Primary Care Provider [phone] Encounter Details Date Type Department Care Team (Late Contact Info) Description 11/26/2021 Procedure Pass [facility] Endoscopy Admitting Dept Virtual Department [address] [place] [address] Social History Tobacco Use Types [...] Upcoming Encounters Date Type Department Care Team ([facility] Contact Info) Description 03/24/2025 9:00 AM EST Nurse Only [facility] Pulmonary, Allergy and Critical Care Medicine 10 [place] [address] Patrick Henson MD [address] [place] [address] [email or web address] documented as of this encounter Visit Diagnoses Not on filedocumented in this encounter Additional Health Concerns Infection Onset Date Last Indicated Resolved Time CoV-Risk 05/25/2023 05/25/2023 06/05/2023 1:24 AM EST documented as of this encounter Care Teams Operations Forester Relationship Specialty Start Date End Date Mayuri Michael CNP [address] [place] [address] [email or web address] PCP - General 01/24/17 09/01/22 Fallon Portillo PA [address] [place] [address] [email or web address] PCP - General Physician In Flight Crew Member 09/02/22 05/01/24 Ingris Johnson DO 73 [place] [address] [email or web address] PCP - General Family Medicine 05/02/24 10/07/24 Ingris Johnson DO [address] [place] [address] PCP - General Family Medicine 10/08/24 Yisel Boles MD [address] [place] [address] [email or web address] Insurance Assigned Provider 07/15/23 03/20/24 documented as of this encounter Additional Source Comments The information contained in this document represents components of the legal health record. It is not the complete legal health record.[facility]
--- OUTSIDE RECORDS SUMMARY | 2025-02-05 16:45 | XMS_ITS | Encounter Summary ---
Author Organization [employer] Address 75 [facility] 7t [place] [address] Care Team Providers Care Ventilating Engineer Name Role Phone Ingris Johnson DO Primary Care Provider [phone] Encounter Details Date Type Department Care Team (Late st Contact Info) Description 04/22/2024 Orders Only [facility] MEDICAL [address] [place] [address] Ingris Johnson DO [address] [place], [place] [id number] Social History Tobacco Use Types Packs/Day Years [...] Description 03/24/2025 8:30 AM EST Office Visit [facility] D[facility]AL [address] [place] [address] Aletha Haddad documented as of this encounter Visit Diagnoses Not on filedocumented in this encounter Care Teams Ventilating Engineer Relationship Specialty Start Date End Date Ingris Johnson DO [address] [place] [address] PCP - General Family Medicine 01/08/24 documented as of this encounter
--- OUTSIDE RECORDS SUMMARY | 2025-02-05 16:45 | XMS_ITS | Encounter Summary ---
Author Organization [facility] Address [address] [place] [address] Phone Care Team Providers Care Shut Off Worker Name Role Phone Mayuri Michael CNP Primary Care Provider + Mayuri Michael CNP Unavailable [phone] Tai Garcia MD Unavailable [phone] Barak CheemaM Unavailable Unavailable Fallon Portillo Primary Care Provider [phone] Yisel Boles MD Unavailable [phone] Ingris Johnson DO Primary Care Provider [phone] Ingris Johnson DO Primary Care Provider [phone] Reason for Referral * Physical Therapy (Routine) - Closed Specialty Diagnoses / Procedures Referred By Alejandra leal Referred To Contact Physical Therapy Diagnoses Encounter for rehabilitation Graciela Antony DPM Phone: tel: fax: mailto:[email or web address] Ashanti Kendall PT mailto:[email or web address] Referral ID Status Reason Start Date Expiration Date Visits Re quested Visits Authorized [id number] Closed 03/28/2018 03/28/2019 20 20 Encounter Details Date Type Department Care Team (Latest Contact Info) Description 03/20/2018 Transcribe Orders [facility] [address] [place] [address] Graciela Antony DPM 10 [facility] 7 [place] [address] [email or web address] Encounter for rehabilitation (Primary Dx) Social [...] Pulmonary, Allergy and Critical Care Medicine 10 [place] [address] Patrick Henson MD [address] [place] [address] [email or web address] documented as of this encounter Procedures Procedure Name Priority Date/Time Associated Diagnosis Comments AMB REFERRAL TO [facility] PHYSICAL THERAPY Routine 04/09/2018 11:08 AM EST Encounter for rehabilitation documented in this encounter Results * Ambulatory referral to [facility] Physical Therapy (04/09/2018 11:08 AM EST) Graciela Antony DPM AMB [facility] REFERRALS Final Result documented in this encounter Visit Diagnoses Diagnosis Encounter for rehabilitation- Primary documented in this encounter Additional Health Concerns Infection Onset Date Last Indicated Resolved Time CoV-Exposed Comment:Recent close contact documented in the Travel/Symptom Screening Form 04/10/2021 04/25/2021 1:[address] CoV-Risk 05/25/2023 05/25/2023 06/05/2023 1:24 AM EST documented as of this encounter Care Teams Shut Off Worker Relationship Specialty Start Date End Date Mayuri Michael CNP [address] [place] [address] [email or web address] PCP - General 01/24/17 09/01/22 Fallon Portillo PA [address] [place] [address] [email or web address] PCP - General Physician Ordnance Handler 09/02/22 05/01/24 Ingris Johnson DO 73 [place] [address] [email or web address] PCP - General Family Medicine 05/02/24 10/07/24 Ingris Johnson DO [address] [place] [address] PCP - General Family Medicine 10/08/24 Mayuri Michael CNP [address] [place] [address] [email or web address] Historical LMR Provider 01/26/1704/17 Tai Garcia MD [address] [place] [address] Historical LMR Provider 01/26/17 Barak Cheema DPM [address] [place] [address] Historical LMR Provider 01/26/1704/17/21 Yisel Boles MD [address] [place] [address] [email or web address] Insurance Assigned Provider 07/15/23 03/20/24 documented as of this encounter Additional Source Comments The information contained in this document represents components of the legal health record. It is not the complete legal health record.[facility]
--- OUTSIDE RECORDS SUMMARY | 2025-02-05 16:45 | XMS_ITS | Encounter Summary ---
Author Organization [facility] Address [address] [place] [address] Phone Care Team Providers Care Commuter Train Operator Name Role Phone RadongtoyaSylMayurikat Flores CNP Primary Care Provider + Fallon Portillo Primary Care Provider [phone] Yisel Boles MD Unavailable [phone] Ingris Johnson DO Primary Care Provider [phone] Ingris Johnson DO Primary Care Provider [phone] Encounter Details Date Type Department Care Team (Latest Contact Info) Description 09/16/2021 Transcribe Orders [facility] Laboratory 30 [place] [address] Lisa Rodriguez PA-C [address] [facility], [email or web address] [place] [address] [email or web address] Diarrhea, unspecified type (Primary Dx); Lower abdominal [...] Critical Care Medicine [address] [place] [address] Patrick Henson MD 10 [facility] 2nd [place] [address] documented as of this encounter Results * Ferritin (09/16/2021 10:01 AM EDT) FERRITIN 104 13 - 150 ug/L [facility] Blood 09/16/2021 10:0 1 AM EDT 09/16/2021 10:07 AM EDT us Lisa Rodriguez PA-C LAB BLOOD ORDERABLES Final Resu lt [address] [address] * TSH (09/16/2021 10:01 AM EDT) TSH 1.79 0.27 - 4.20 uIU/mL [facility] Blood 09/16/2021 10:0 1 AM EDT 09/16/2021 10:07 AM EDT us Lisa Rodriguez PA-C LAB BLOOD ORDERABLES Final Resu lt [address] [address] * Immunoglobulin A (09/16/2021 10:01 AM EDT) IgA 144 70 - 400 mg/dL [facility] Blood 09/16/2021 10:0 1 AM EDT 09/16/2021 10:07 AM EDT us Lisa Rodriguez PA-C LAB BLOOD ORDERABLES Final Resu lt Performing Organization Address City/[facility]/ZIP Co de Phone Number [address] [address] * Lipase (09/16/2021 10:01 AM EDT) LIPASE 39 16 - 63 U/L [facility] Blood 09/16/2021 10:0 1 AM EDT 09/16/2021 10:07 AM EDT us Lisa Rodriguez PA-C LAB BLOOD ORDERABLES Final Resu lt Performing Organization Address [facility] Co de Phone Number [address] [address] * C-Reactive Protein (09/16/2021 10:01 AM EDT) C REACTIVE PROTEIN <3.0 0.0 - 4.0 mg/L [facility] Blood 09/16/2021 10:0 1 AM EDT 09/16/2021 10:07 AM EDT us Lisa Rodriguez PA-C LAB BLOOD ORDERABLES Final Resu lt Performing Organization Address [facility]/ZIP Co de Phone Number [address] [address] * Comprehensive metabolic panel (09/16/2021 10:01 AM EDT) SODIUM 139 133 - 146 mmol/L [facility] POTASSIUM 5.1 3.3 - 5.1 mmol/L [facility] CHLORIDE 104 96 - 108 mmol/L [facility] CO2 27 21 - 35 mmol/L [facility] BUN 16 6 - 19 mg/dL [facility] CREATININE 0.80 0.5 - 1.5 mg/dL [facility] GLUCOSE 96 70 - 99 mg/dL [facility] ALBUMIN 4.5 3.9 - 4.8 g/dL [facility] TOTAL PROTEIN 7.7 6.5 - 8.0 g/dL [facility] CALCIUM 9.2 8.4 - 10.3 mg/dL [facility] ALKALINE PHOSPHATASE 39 39 - 117 U/L [facility] TOTAL BILIRUBIN 0.5 0.0 - 1.2 mg/dL [facility] AST 17 0 - 37 U/L [facility] ALT 12 0 - 40 U/L [facility] GLOBULIN 3.2 1 - 4.8 g/dL [facility] EGFR 100 >59 mL/min/1.7 3m2 [facility] Comment:Estimated glomerular filtration rate calculated using the CKD-EPI refit equation. ANION GAP 13 10 - 20 mmol/L [facility] Blood 09/16/2021 10:0 1 AM EDT 09/16/2021 10:07 AM EDT us Lisa Rodriguez PA-C LAB BLOOD ORDERABLES Final Resu lt Performing Organization Address City/State/[facility] Co de Phone Number [address] [address] documented in this encounter Visit Diagnoses Diagnosis Diarrhea, unspecified type- Primary Lower abdominal pain Abdominal pain, other specified site Rectal bleeding Hemorrhage of rectum and anus Constipation, unspecified constipation type documented in this encounter Additional Health Concerns Infection Onset Date Last Indicated Resolved Time CoV-Risk 05/25/2023 05/25/2023 06/05/2023 1:24 AM EST documented as of this encounter Care Teams Commuter Train Operator Relationship Specialty Start Date End Date Mayuri Michael CNP [address] [place] [address] [email or web address] PCP - General 01/24/17 09/01/22 Fallon Portillo PA [address] [place] [address] [email or web address] PCP - General Physician Labor Relations Supervisor 09/02/22 05/01/24 Ingris Johnson DO [address] [place] [address] [email or web address] PCP - General Family Medicine 05/02/24 10/07/24 Ingris Johnson DO [address] [place] [address] PCP - General Family Medicine 10/08/24 Yisel Boles MD [address] [place] [address] [email or web address] Insurance Assigned Provider 07/15/23 03/20/24 documented as of this encounter Additional Source Comments The information contained in this document represents components of the legal health record. It is not the complete legal health record.[facility]
--- OUTSIDE RECORDS SUMMARY | 2025-02-05 16:45 | XMS_ITS | Encounter Summary ---
Author Organization [employer] Address 75 [facility] 7t [place] [address] Care Team Providers Care Electron Beam Welding Machine Operator Name Role Phone AlexIngris Primary Care Provider [phone] Encounter Details Date Type Department Care Team (Late st Contact Info) Description 01/31/2024 Orders Only [facility] [address] [place] [address] Tai Bang NP [address] [place] [address] Social History Tobacco Use Types Packs/Day Years [...] Description 03/24/2025 8:30 AM EST Office Visit [place] [facility] [address] [place] [address] Aletha Haddad documented as of this encounter Procedures Procedure Name Priority Date/Time Associated Diagnosis Comments PULMONARY FUNCTION TESTING Routine 06/30/2021 9:04 AM EDT documented in this encounter Results * Pulmonary function testing (06/30/2021 9:04 AM EDT) us Tai Bang FISHER SCALLOP PFT ORDERABLES Final Result documented in this encounter Visit Diagnoses Not on filedocumented in this encounter Care Teams Electron Beam Welding Machine Operator Relationship Specialty Start Date End Date Ingris Johnson DO [address] [place] [address] PCP - General Family Medicine 01/08/24 documented as of this encounter
--- OUTSIDE RECORDS SUMMARY | 2025-02-05 16:45 | XMS_ITS | Encounter Summary ---
Author Organization [facility] Address [address] [facility] [address] [place] [address] Phone Care Team Providers Care Passenger Car Conductor Name Role Phone RaSyl blackkat Flores CNP Primary Care Provider + Fallon Portillo Primary Care Provider [phone] Yisel Boles MD Unavailable [phone] Ingris Johnson DO Primary Care Provider [phone] Ingris Johnson DO Primary Care Provider [phone] Encounter Details Date Type Department Care Team (Late st Contact Info) Description 06/30/2021 Ancillary Orders [facility] Rheumatology 22 [place] [address] Susanna Hyatt MD 22 [facility], [address] [place] [address] [email or web address] Pneumonia due to [...] Pulmonary, Allergy and Critical Care Medicine [address] [facility] [place] [address] Patrick Henson MD 10 [facility] 2nd [place] [address] documented as of this encounter Visit Diagnoses Diagnosis Pneumonia due to COVID-19 virus documented in this encounter Additional Health Concerns Infection Onset Date Last Indicated Resolved Time CoV-Risk 05/25/2023 05/25/2023 06/05/2023 1:24 AM EST documented as of this encounter Care Teams Passenger Car Conductor Relationship Specialty Start Date End Date Mayuri Michael CNP [address] [place] [address] [email or web address] PCP - General 01/24/17 09/01/22 Fallon Portillo PA [address] [place] [address] [email or web address] PCP - General Physician Machined Parts Metal Sprayer 09/02/22 05/01/24 Ingris Johnson DO [address] [place] [address] [email or web address] PCP - General Family Medicine 05/02/24 10/07/24 Ingris Johnson DO [address] [place] [address] PCP - General Family Medicine 10/08/24 Yisel Boles MD [address] [place] [address] [email or web address] Insurance Assigned Provider 07/15/23 03/20/24 documented as of this encounter Additional Source Comments The information contained in this document represents components of the legal health record. It is not the complete legal health record.[facility]
--- OUTSIDE RECORDS SUMMARY | 2025-02-05 16:46 | XMS_ITS | Encounter Summary ---
Author Organization [facility] Address [address] [place] [address] [place] [address] Phone Care Team Providers Care Fisher Trammel Net Name Role Phone Alec Mayurikat Flores CNP Primary Care Provider + Mayuri Michael ROLLING CHAIR PUSHER Unavailable [phone] Tai Garcia MD Unavailable [phone] Barak Cheema DPM Unavailable Unavailable Fallon Portillo Primary Care Provider [phone] Yisel Boles MD Unavailable [phone] Ingris Johnson DO Primary Care Provider [phone] Ingris Johnson DO Primary Care Provider [phone] Encounter Details Date Type Department Care Team (Latest Contact Info) Description 09/23/2020 Ancillary Orders [facility] Rheumatology [address], 4[address], [address] [place] [address] Crystal Ne[place] MD 55 [facility] [address] [place] [address] [email or web address] Chronic pain of both knees Social History [...] [facility] Pulmonary, Allergy and Critical Care Medicine [address] [place] [address] [place] [address] Patrick Henson MD [address] [place] [address] [email or web address] documented [...] abnormality is seen. IMPRESSION: Normal examination Crystal Neely MD IMG XR LOWER EXTREMITY Final Re sult [...] documented as of this encounter Care Teams Fisher Trammel Net Relationship Specialty Start Date End Date Mayuri Michael CNP [address] [place] [address] [email or web address] PCP - General 01/24/17 09/01/22 Fallon Portillo PA [address] [place] [address] [email or web address] PCP - General Physician Assistant Director Of Nursing 09/02/22 05/01/24 Ingris Johnson DO [address] [place] [address] [email or web address] PCP - General Family Medicine 05/02/24 10/07/24 Ingris Johnson DO [address] [place] [address] PCP - General Family Medicine 10/08/24 Mayuri Michael CNP [address] [place] [address] [email or web address] Historical LMR Provider 01/26/1704/17 Tai Garcia MD [address] [place] [address] Historical LMR Provider 01/26/17 Barak Cheema DPM [address] [place] [address] Historical LMR Provider 01/26/1704/17/21 Yisel Boles MD [address] [place] [address] [email or web address] Insurance Assigned Provider 07/15/23 03/20/24 documented as of this encounter Additional Source Comments The information contained in this document represents components of the legal health record. It is not the complete legal health record.[facility]
--- OUTSIDE RECORDS SUMMARY | 2025-02-05 16:46 | XMS_ITS | Encounter Summary ---
Author Organization [facility] Address [address] [place] [address] Phone Care Team Providers Care Byproduct Engineer Name Role Phone Mayuri Michael CNP Primary Care Provider + Mayuri Michael PIPELINE MAINTENANCE SUPERVISOR Unavailable [phone] Tai Garcia MD Unavailable [phone] Barak Cheema DPM Unavailable Unavailable Fallon Portillo Primary Care Provider [phone] Yisel Boles MD Unavailable [phone] Ingris Johnson DO Primary Care Provider [phone] Ingris Johnson DO Primary Care Provider [phone] Encounter Details Date Type Department Care Team (Late st Contact Info) Description 08/17/2020 Procedure Pass [facility] [address] [place] [address] Social History Tobacco Use Types Packs/Day Years [...] Pulmonary, Allergy and Critical Care Medicine 10 [place] [address] Patrick Henson MD [address] [address] [email or web address] documented as of this encounter Visit Diagnoses Not on filedocumented in this encounter Additional Health Concerns Infection Onset Date Last Indicated Resolved Time CoV-Exposed Comment:Recent close contact documented in the Travel/Symptom Screening Form 04/10/2021 04/25/2021 1:[address] CoV-Risk 05/25/2023 05/25/2023 06/05/2023 1:24 AM EST documented as of this encounter Care Teams Byproduct Engineer Relationship Specialty Start Date End Date Mayuri Michael CNP [address] [place] [address] [email or web address] PCP - General 01/24/17 09/01/22 Fallon Portillo PA [address] [place] [address] [email or web address] PCP - General Physician Mill Beam Fitter 09/02/22 05/01/24 Ingris Johnson DO [address] [place] [address] [email or web address] PCP - General Family Medicine 05/02/24 10/07/24 Ingris Johnson DO [address] [place] [address] PCP - General Family Medicine 10/08/24 Mayuri Michael CNP [address] [place] [address] [email or web address] Historical LMR Provider 01/26/1704/17 Tai Garcia MD [address] [address] Historical LMR Provider 01/26/17 Barak Cheema DPM [address] [place] [address] Historical LMR Provider 01/26/1704/17/21 Yisel Boles MD [address] [place] [address] [email or web address] Insurance Assigned Provider 07/15/23 03/20/24 documented as of this encounter Additional Source Comments The information contained in this document represents components of the legal health record. It is not the complete legal health record.[facility]
--- OUTSIDE RECORDS SUMMARY | 2025-02-05 16:46 | XMS_ITS | Encounter Summary ---
Author Organization [facility] Address [address] [place] [address] Phone Care Team Providers Care Welding Machine Tender Name Role Phone Mayuri Michael CNP Primary Care Provider + Mayuri Michael DRIVE MAN Unavailable [phone] Tai Garcia MD Unavailable Barak Cheema DPM Unavailable Unavailable Fallon Portillo Primary Care Provider [phone] Yisel Boles MD Unavailable [phone] Ingris Johnson DO Primary Care Provider [phone] Ingris Johnson DO Primary Care Provider [phone] Encounter Details Date Type Department Care Team (Late st Contact Info) Description 08/17/2020 Procedure Pass [facility] - [address] [place] [address] Social History Tobacco Use Types Packs/Day Years [...] Pulmonary, Allergy and Critical Care Medicine [address] [place] [address] Patrick Henson MD [address] [address] [email or web address] documented as of this encounter Visit Diagnoses Not on filedocumented in this encounter Additional Health Concerns Infection Onset Date Last Indicated Resolved Time CoV-Exposed Comment:Recent close contact documented in the Travel/Symptom Screening Form 04/10/2021 04/25/2021 1:[address] CoV-Risk 05/25/2023 05/25/2023 06/05/2023 1:24 AM EST documented as of this encounter Care Teams Welding Machine Tender Relationship Specialty Start Date End Date Mayuri Michael CNP [address] [place] [address] [email or web address] PCP - General 01/24/17 09/01/22 Fallon Portillo PA [address] [place] [address] [place] [address] [email or web address] PCP - General Physician Digital Marketing Program Manager 09/02/22 05/01/24 Ingris Johnson DO [address] [place] [address] [email or web address] PCP - General Family Medicine 05/02/24 10/07/24 Ingris Johnson DO [address] [place] [address] PCP - General Family Medicine 10/08/24 Mayuri Michael CNP [address] [place] [address] [email or web address] Historical LMR Provider 01/26/1704/17 Tai Garcia MD [address] [place] [address] Historical LMR Provider 01/26/17 Barak Cheema DPM [address] [place] [address] [place] [address] Historical LMR Provider 01/26/1704/17/21 Yisel Boles MD [address] [place] [address] [email or web address] Insurance Assigned Provider 07/15/23 03/20/24 documented as of this encounter Additional Source Comments The information contained in this document represents components of the legal health record. It is not the complete legal health record.[facility]
--- OUTSIDE RECORDS SUMMARY | 2025-02-05 16:46 | XMS_ITS | Encounter Summary ---
Author Organization [facility] Address [address] [place] [address] Phone Care Team Providers Care Reagent Tender Helper Name Role Phone Fallon Portillo Primary Care Provider [phone] Yisel Boles MD Unavailable [phone] Ingris Johnson DO Primary Care Provider [phone] Ingris Johnson DO Primary Care Provider [phone] Encounter Details Date Type Department Care Team (Late st Contact Info) Description 05/25/2023 Procedure Pass [facility], [facility] Scan - [address] [id number] Social History Tobacco Use Types Packs/Day Years [...] 2:05 PM EST Johanna Elias, KATY * Widen Suicide Severity Rating Scale (Screener/Recent Self-Report) Question [...] [facility] Pulmonary, Allergy and Critical Care Medicine [address] [place] [address] Patrick Henson MD [address] [place] [address] documented as of this encounter Visit Diagnoses Not on filedocumented in this encounter Additional Health Concerns Infection Onset Date Last Indicated Resolved Time CoV-Risk 05/25/2023 05/25/2023 06/05/2023 1:24 AM EST documented as of this encounter Care Teams Reagent Tender Helper Relationship Specialty Start Date End Date Fallon Portillo PA [email or web address] PCP - General Physician Exchange Trouble Shooter 09/02/22 05/01/24 Ingris Johnson DO [address] [place] [address] [email or web address] PCP - General Family Medicine 05/02/24 10/07/24 Ingris Johnson DO [address] [place] [address] PCP - General Family Medicine 10/08/24 Yisel Boles MD [address] [place] [address] [email or web address] Insurance Assigned Provider 07/15/23 03/20/24 documented as of this encounter Additional Source Comments The information contained in this document represents components of the legal health record. It is not the complete legal health record.[facility]
--- OUTSIDE RECORDS SUMMARY | 2025-02-05 16:46 | XMS_ITS | Encounter Summary ---
Author Organization [facility] Address [address] [place] [address] Phone Care Team Providers Care Farmhand Name Role Phone Alec Mayurikat Flores CNP Primary Care Provider + Mayuri Michael BURR GRINDER Unavailable Tai Garcia MD Unavailable [phone] Barak Cheema DPM Unavailable Unavailable Fallon Portillo Primary Care Provider [phone] Yisel Boles MD Unavailable [phone] Ingris Johnson DO Primary Care Provider [phone] Ingris Johnson DO Primary Care Provider [phone] Encounter Details Date Type Department Care Team (Late st Contact Info) Description 08/17/2020 Ancillary Orders Virtual Department [address] [place] [address] Britany Mcnair MD [address] [place] [address] [email or web address] Breast pain, left Social History Tobacco [...] [facility] Pulmonary, Allergy and Critical Care Medicine [address] [place] [address] Patrick Henson MD [address] [place] [address] [email or web address] documented as of this encounter [...] documented as of this encounter Care Teams Farmhand Relationship Specialty Start Date End Date Mayuri Michael CNP [address] [place] [address] [email or web address] PCP - General 01/24/17 09/01/22 Fallon Portillo PA [address] [place] [address] PCP - General Physician Stabilizing Machine Operator 09/02/22 05/01/24 Ingris Johnson DO [address] [place] [address] [email or web address] PCP - General Family Medicine 05/02/24 10/07/24 Ingris Johnson DO [address] [place] [address] PCP - General Family Medicine 10/08/24 Mayuri Michael CNP [address] [place] [address] [email or web address] Historical LMR Provider 01/26/1704/17 Tai Garcia MD [address] [place] [address] Historical LMR Provider 01/26/17 Barak Cheema DPM [address] [place] [address] Historical LMR Provider 01/26/1704/17/21 Yisel Boles MD [address] [place] [address] [email or web address] Insurance Assigned Provider 07/15/23 03/20/24 documented as of this encounter Additional Source Comments The information contained in this document represents components of the legal health record. It is not the complete legal health record.[facility]
--- OUTSIDE RECORDS SUMMARY | 2025-02-05 16:46 | XMS_ITS | Encounter Summary ---
Author Organization [facility] Address [address] [facility] [address] [place] [address] Phone Care Team Providers Care Developmental Education Instructor Name Role Phone Fallon Portillo Primary Care Provider [phone] Yisel Boles MD Unavailable [phone] Ingris Johnson DO Primary Care Provider [phone] Ingris Johnson DO Primary Care Provider [phone] Encounter Details Date Type Department Care Team (Late st Contact Info) Description 04/13/2023 Ancillary Orders [facility], [address] [phone] Fallon Portillo PA [address] [place] [address]. [place] [address] [email or web address] Acute pain of right knee (Primary Dx) [...] Pulmonary, Allergy and Critical Care Medicine [address] [facility] [place] [address] [place] [address] Patrick Henson MD 10 [facility] 2nd [place] [address] [email or web address] documented as of this encounter Results * XR KNEE 4 OR MORE VIEWS (RIGHT) (04/13/2023 2:02 PM EST) Anatomical Region Laterality Modality Knee Right Computed Radiogr aphy 04/16/2023 1:46 AM EST Impressions 04/16/2023 1:47 AM EST No acute osseous abnormality or significant degenerative change. Narrative 04/16/2023 1:47 AM EST XR KNEE 4 OR MORE VIEWS (RIGHT) Referring clinician's provided indication for this examination in [facility]: Pain COMPARISON: XR KNEE STANDING (BILATERAL, SINGLE VIEW ONLY) FINDINGS: No acute fracture or dislocation. Mild medial compartment marginal spurring. Joint spaces preserved. No joint effusion. Procedure Note Nelsy Cordero MD - 04/16/2023 XR KNEE 4 OR MORE VIEWS (RIGHT) Referring clinician's provided indication for this examination in [facility]:Pain COMPARISON: XR KNEE STANDING (BILATERAL, SINGLE VIEW ONLY) FINDINGS: No acute fracture or dislocation. Mild medial compartment marginalspurring. Joint spaces preserved. No joint effusion. IMPRESSION: No acute osseous abnormality or significant degenerative change. us Fallon SHEPHERD IMG XR LOWER EXTREMITY Final Result documented in this encounter Visit Diagnoses Diagnosis Acute pain of right knee- Primary Acute pain of right knee documented in this encounter Additional Health Concerns Infection Onset Date Last Indicated Resolved Time CoV-Risk 05/25/2023 05/25/2023 06/05/2023 1:24 AM EST documented as of this encounter Care Teams Developmental Education Instructor Relationship Specialty Start Date End Date Fallon Portillo PA [email or web address] PCP - General Physician Power Generation Equipment Repairer 09/02/22 05/01/24 Ingris Johnson DO [address] [place] [address] [email or web address] PCP - General Family Medicine 05/02/24 10/07/24 Ingris Johnson DO [address] [place] [address] PCP - General Family Medicine 10/08/24 Yisel Boles MD [address] [place] [address] [email or web address] Insurance Assigned Provider 07/15/23 03/20/24 documented as of this encounter Additional Source Comments The information contained in this document represents components of the legal health record. It is not the complete legal health record.[facility]
--- OUTSIDE RECORDS SUMMARY | 2025-02-05 16:46 | XMS_ITS | Clinical Summary ---
Author Organization [facility] Address [address] [place], [place] [id number] Phone Care Team Providers Care Automated Weaver Name Role Phone Ingris Johnson Primary Care Provider [phone] Allergies Active Allergy Reactions Criticality Noted Date Comments Adhesive Tape-Silicones Rash Low 09/02/2022 Fluticasone Other (See Comments) 12/27/2016 Nose Bleeds Latex Hives 12/27/2016 Lidocaine Rash Low 10/22/2024 Other Other (See Comments) 12/27/2016 [place] Nuts: Itchy Throat dissolvable sutures Skin reacts [...] is encouraged to discuss her options with roller operator but according to her report she did [...] is encouraged to discuss her options with roller operator but according to her report she did [...] - Schedule follow-up appointment in March. Orders: fbirvgjgjl-jkgajvkh-lqtmoqawdn (BREZTRI AEROSPHERE) 160-9-4.8 mcg/actuation inhaler; Inhale 2 [...] 7:51 PM EST): Follow closely with her roller operator and schedule formal PFTs for better assessment. Dry skin 06/10/2021 Assessment & Plan (06/13/2021 7:49 PM EST): To make sure that she is not developing scleroderma-like features I added centromere and SCL antibodies to next blood draw. She may try different skin products such as Lubriderm, Neutrogena Libyan formula fragrance free versus Eucerin or Aquaphor. [...] Carefully continue lubricating drops as instructed by tier over. Avoid prolonged air from fans or air [...] for the 2nd opinion rheumatology consultation at [facility] Rhe[facility] 09/23/2020 when she was fairly asymptomatic so there was no clear indication for adding any DMARDs at that time. She developed knee swelling the day following [facility] visit and got labs after visit with me on 09/24/2020 that revealed CRP at 9.9 (0-4.0). The subsequent visit in early November with Dr. Lewis at [facility] and musculoskeletal ultrasound did not reveal any [...] 19. After clinical and ultrasonographic evaluation at [facility] by Dr. Lewis on 11/09/2020 there were no signs of inflammatory arthritis necessitating DMARD therapy at this time. Assessment & Plan (10/10/2023 10:32 PM EDT): Additional labs have not revealed immunologic signs of rheumatoid arthritis versus systemic lupus erythematosus versus Sjogren's syndrome. She was seen for the 2nd opinion rheumatology consultation at [facility] Rheumatology 09/23/2020 when she was fairly asymptomatic so there was no clear indication for adding any DMARDs at that time. She developed knee swelling the day following [facility] visit and got labs after visit with [...] in early November with Dr. Lewis at [facility] and musculoskeletal ultrasound did not reveal any [...] 19. After clinical and ultrasonographic evaluation at [facility] by Dr. Lewis on 11/09/2020 there were no signs of inflammatory arthritis necessitating DMARD therapy at this time. Assessment & Plan (05/01/2023 4:57 PM EST): Additional labs have not revealed immunologic signs of rheumatoid arthritis versus systemic lupus erythematosus versus Sjogren's syndrome. She was seen for the 2nd opinion rheumatology consultation at [facility] Rhe[facility] 09/23/2020 when she was fairly asymptomatic so there was no clear indication for adding any DMARDs at that time. She developed knee swelling the day following [facility] visit and got labs after visit with [...] in early November with Dr. Lewis at [facility] and musculoskeletal ultrasound did not reveal any [...] After recent clinical and ultrasonographic evaluation at [facility] by Dr. Lewis on 11/09/2020 there are no signs of inflammatory arthritis necessitating DMARD therapy at this time. Assessment & Plan (09/02/2022 2:47 PM EDT): Additional labs have not revealed immunologic signs of rheumatoid arthritis versus systemic lupus erythematosus versus Sjogren's syndrome. She was seen for the 2nd opinion rheumatology consultation at [facility] Rhe[facility] 09/23/2020 when she was fairly asymptomatic so there was no clear indication for adding any DMARDs at that time. She developed knee swelling the day following [facility] visit and got labs after visit with [...] in early November with Dr. Lewis at [facility] and musculoskeletal ultrasound did not reveal any [...] After recent clinical and ultrasonographic evaluation at [facility] by Dr. Lewis on 11/09/2020 there are no signs of inflammatory arthritis necessitating DMARD therapy at this time. Assessment & Plan (05/05/2022 12:30 PM EST): Additional labs have not revealed immunologic signs of rheumatoid arthritis versus systemic lupus erythematosus versus Sjogren's syndrome. She was seen for the 2nd opinion rheumatology consultation at [facility] Rhe[facility] 09/23/2020 when she was fairly asymptomatic so there was no clear indication for adding any DMARDs at that time. She developed knee swelling the day following [facility] visit and got labs after visit with [...] in early November with Dr. Lewis at [facility] and musculoskeletal ultrasound did not reveal any [...] After recent clinical and ultrasonographic evaluation at [facility] by Dr. Lewis on 11/09/2020 there are no signs of inflammatory arthritis necessitating DMARD therapy at this time. Assessment & Plan (01/12/2022 10:08 AM EDT): Additional labs have not revealed immunologic signs of rheumatoid arthritis versus systemic lupus erythematosus versus Sjogren's syndrome. She was seen for the 2nd opinion rheumatology consultation at [facility] Rhe[facility] 09/23/2020 when she was fairly asymptomatic so there was no clear indication for adding any DMARDs at that time. She developed knee swelling the day following [facility] visit and got labs after visit with [...] subsequent visit in early November with Dr. eLwis at [facility] and musculoskeletal ultrasound did not reveal any [...] After recent clinical and ultrasonographic evaluation at [facility] by Dr. Lewis on 11/09/2020 there are no signs of inflammatory arthritis necessitating DMARD therapy at this time. Assessment & Plan (11/24/2021 10:19 AM EDT): Additional labs have not revealed immunologic signs of rheumatoid arthritis versus systemic lupus erythematosus versus Sjogren's syndrome. She was seen for the 2nd opinion rheumatology consultation at [facility] Rhe[facility] 09/23/2020 when she was fairly asymptomatic so there was no clear indication for adding any DMARDs at that time. She developed knee swelling the day following [facility] visit and got labs after visit with [...] in early November with Dr. Lewis at [facility] and musculoskeletal ultrasound did not reveal any [...] After recent clinical and ultrasonographic evaluation at [facility] by Dr. Lewis on 11/09/2020 there are no signs of inflammatory arthritis necessitating DMARD therapy at this time. Assessment & Plan (09/25/2021 4:39 PM EDT): Additional labs have not revealed immunologic signs of rheumatoid arthritis versus systemic lupus erythematosus versus Sjogren's syndrome. She was seen for the 2nd opinion rheumatology consultation at [facility] Rhe[facility] 09/23/2020 when she was fairly asymptomatic so there was no clear indication for adding any DMARDs at that time. She developed knee swelling the day following [facility] visit and got labs after visit with [...] in early November with Dr. Lewis at [facility] and musculoskeletal ultrasound did not reveal any [...] After recent clinical and ultrasonographic evaluation at [facility] by Dr. Lewis on 11/09/2020 there are no signs of inflammatory arthritis necessitating DMARD therapy at this time. Assessment & Plan (07/06/2021 10:54 AM EDT): Additional labs have not revealed immunologic signs of rheumatoid arthritis versus systemic lupus erythematosus versus Sjogren's syndrome. She was seen for the 2nd opinion rheumatology consultation at [facility] Rhe[facility] 09/23/2020 when she was fairly asymptomatic so there was no clear indication for adding any DMARDs at that time. She developed knee swelling the day following [facility] visit and got labs after visit with [...] in early November with Dr. Lewis at [facility] and musculoskeletal ultrasound did not reveal any [...] After recent clinical and ultrasonographic evaluation at [facility] by Dr. Lewis on 11/09/2020 there are no signs of inflammatory arthritis necessitating DMARD therapy at this time. She requested an excuse from work for next Monday-06/28/2021. Assessment & Plan (06/10/2021 9:56 AM EST): Additional labs have not revealed immunologic signs of rheumatoid arthritis versus systemic lupus erythematosus versus Sjogren's syndrome. She was seen for the 2nd opinion rheumatology consultation at [facility] Rhe[facility] 09/23/2020 when she was fairly asymptomatic so there was no clear indication for adding any DMARDs at that time. She developed knee swelling the day following [facility] visit and got labs after visit with [...] in early November with Dr. Lewis at [facility] and musculoskeletal ultrasound did not reveal any [...] After recent clinical and ultrasonographic evaluation at [facility] by Dr. Lewis on 11/09/2020 there are no signs of inflammatory arthritis necessitating DMARD therapy at this time. Assessment & Plan (04/04/2021 6:43 PM EST): Additional labs have not revealed immunologic signs of rheumatoid arthritis versus systemic lupus erythematosus versus Sjogren's syndrome. She was seen for the 2nd opinion rheumatology consultation at [facility] Rhe[facility] 09/23/2020 when she was fairly asymptomatic so there was no clear indication for adding any DMARDs at that time. She developed knee swelling the day following [facility] visit and got labs after visit with [...] in early November with Dr. Lewis at [facility] and musculoskeletal ultrasound did not reveal any [...] After recent clinical and ultrasonographic evaluation at [facility] by Dr. Lewis on 11/09/2020 there are no signs of inflammatory arthritis necessitating DMARD therapy at this time. Assessment & Plan (12/04/2020 10:22 PM EDT): Additional labs have not revealed immunologic signs of rheumatoid arthritis versus systemic lupus erythematosus versus Sjogren's syndrome. She was seen for the 2nd opinion rheumatology consultation at [facility] Rhe[facility] 09/23/2020 when she was fairly asymptomatic so there was no clear indication for adding any DMARDs at that time. She developed knee swelling the day following [facility] visit and got labs after visit with [...] After recent clinical and ultrasonographic evaluation at [facility] by Dr. Lewis on 11/09/2020 there are no signs of inflammatory arthritis necessitating DMARD therapy at this time. Assessment & Plan (10/27/2020 10:30 PM EDT): Additional labs have not revealed immunologic signs of rheumatoid arthritis versus systemic lupus erythematosus versus Sjogren's syndrome. She was seen for the 2nd opinion rheumatology consultation at [facility] Rhe[facility] 09/23/2020 when she was fairly asymptomatic so there was no clear indication for adding any DMARDs at that time. She developed knee swelling the day following [facility] visit and got labs after visit with [...] for the 2nd opinion rheumatology consultation at [facility] Rhe[facility] 09/23/2020 when she was fairly asymptomatic so there was no clear indication for adding any DMARDs at that time. She developed knee swelling the day following [facility] visit and got labs after visit with [...] offered her 2nd opinion rheumatology consultation at [facility] to make sure that there are no [...] offering her second opinion rheumatology consultation at [facility] to make sure that there are no [...] offering her second opinion rheumatology consultation at [facility] or [facility] to make sure that there are no [...] She is requesting a letter to her stonework tracer allowing her to continue working- see details in communication section of [employer] with today's date. History of bunionectomy of [...] her a second opinion rheumatology consultation at [facility] Rheumatology-she was seen on 09/23/[address] [...] her a second opinion rheumatology consultation at [facility] Rheumat[facility]. Assessment & Plan (08/25/2020 8:59 PM [...] her to address it separately with her roller operator. I have reminded her that if she [...] her to address it separately with her roller operator. Class 1 obesity due to exces s [...] Pulmonary, Allergy and Critical Care Medicine [address] [place] [address] Ingris Johnson, DO Medication Question from Last 3 Months Family History Medical [...] Pulmonary, Allergy and Critical Care Medicine [address] [facility] [place] [place] [address] Patrick Henson MD [address] [facility] 2nd [place] [address] Health Maintenance Due Date Last Done Comments DEPRESSION SCREENING 2001 HIV ONE-TIME SCREENING (18-6 5 YEARS) 2007 PNEUMOCOCCAL VACCINES (0-49 years) (1 of 2 - PCV) 2008 PAP SMEAR 2010 INFLUENZA VACCINE (#1) 2024 COVID-19 VACCINE (1 - 2024-2 6 season) 2024 SCREENING FOR DIABETES 04/30/2027 04/30/2024 [...] this topic Medical Devices Implanted Type Area Header Set Up Operator Device Identifier Shelf Expiration Date Model / Serial / Lot Screw Screw Bilateral: Foot Procedures Procedure Name Priority Date/Time Associated Diagnosis Comments HEPATITIS C ANTIBODY, QUALITATIVE Routine 08/19/2020 9:33 AM EDT Inflammatory polyarthritis Positive CARLENE (antinuclear antibody) from Last 3 Months or Most Recently Relevant to Health Maintenance Results * Hepatitis C antibody, qualitative (08/19/2020 9:33 AM EDT) HCV NON-REACTIV E NON-REACTI VE [facility] Blood 08/19/2020 9:33 AM EDT 08/19/2020 9:42 AM EDT us Susanna Hyatt MD LAB BLOOD ORDERABLES Fin al Result [facility] [address] [place] [address] from Last 3 Months or Most Recently Relevant to Health Maintenance [place] [address] [place] [address] [place] [address] [place] [address] [place] [address] [place] [address] [employer] Care Teams Automated Weaver Relationship Specialty Start Date End Date Ingris Johnson DO [address] [place] [id number] PCP - General Family Medicine 10/08/24 Additional Source Comments The information contained in this document represents components of the legal health record. It is not the complete legal health record.[facility]
--- OUTSIDE RECORDS SUMMARY | 2025-02-05 16:46 | XMS_ITS | Encounter Summary ---
Author Organization [facility] Address [address] [place] [address] Phone Care Team Providers Care Sea Foam Kiss Maker Name Role Phone Fallon Portillo Primary Care Provider [phone] Yisel Boles MD Unavailable [phone] Ingris Johnson DO Primary Care Provider [phone] Ingris Johnson DO Primary Care Provider [phone] Encounter Details Date Type Department Care Team (Late st Contact Info) Description 04/25/2023 Procedure Pass [facility], [address] [address] Social History Tobacco Use Types Packs/Day Years [...] Critical Care Medicine [address] [place] [address] [place] [address] Patrick Henson MD 10 [facility] 2nd [place] [address] documented as of this encounter Visit Diagnoses Not on filedocumented in this encounter Additional Health Concerns Infection Onset Date Last Indicated Resolved Time CoV-Risk 05/25/2023 05/25/2023 06/05/2023 1:24 AM EST documented as of this encounter Care Teams Sea Foam Kiss Maker Relationship Specialty Start Date End Date Fallon Portillo PA [email or web address] PCP - General Physician Concrete Block Molder 09/02/22 05/01/24 Ingris Johnson DO [address] [place] [address] PCP - General Family Medicine 05/02/24 10/07/24 Ingris Johnson DO [address] [place] [address] PCP - General Family Medicine 10/08/24 Yisel Boles MD [address] [place] [address] Insurance Assigned Provider 07/15/23 03/20/24 documented as of this encounter Additional Source Comments The information contained in this document represents components of the legal health record. It is not the complete legal health record.[facility]
--- OUTSIDE RECORDS SUMMARY | 2025-02-05 16:46 | XMS_ITS | Encounter Summary ---
Author Organization [employer] Address [address] [facility] [address] [place] [address] Care Team Providers Care Sulfide Head Operator Name Role Phone Fallon Portillo PA-C Primary Care Provider Unav ailable Ingris Johnson DO Primary Care Provider [phone] Encounter Details Date Type Department Care Team [...] Description 03/24/2025 8:30 AM EST Office Visit [facility] DENT[facility] [address] [place] [address] Aletha Haddad documented as of this encounter Visit Diagnoses Not on filedocumented in this encounter Care Teams Sulfide Head Operator Relationship Specialty Start Date End Date Fallon Portillo PA-C PCP - General Family Medicine 06/20/22 01/07/24 Ingris Johnson DO [address] [place] [address] PCP - General Family Medicine 01/08/24 documented as of this encounter
--- OUTSIDE RECORDS SUMMARY | 2025-02-05 16:46 | XMS_ITS | Encounter Summary ---
Author Organization [employer] Address [address] [facility] 7t [place] [address] Care Team Providers Care Marketing Proposal Specialist Name Role Phone Fallon Portillo PA-C Primary Care Provider Unav ailable Ingris Johnson DO Primary Care Provider Encounter Details Date [...] Description 03/24/2025 8:30 AM EST Office Visit [facility] DENTAL [address] [place] [address] Aletha Haddad documented as of this encounter Visit Diagnoses Not on filedocumented in this encounter Care Teams Marketing Proposal Specialist Relationship Specialty Start Date End Date Fallon Portillo PA-C PCP - General Family Medicine 06/20/22 01/07/24 Ingris Johnson DO [address] [place] [address] PCP - General Family Medicine 01/08/24 documented as of this encounter
--- OUTSIDE RECORDS SUMMARY | 2025-02-05 16:46 | XMS_ITS | Encounter Summary ---
Author Organization [facility] Address [address] [place] [address] Phone Care Team Providers Care Etch Operator Semiconductor Wafers Name Role Phone Fallon Portillo Primary Care Provider [phone] Yisel Boles MD Unavailable [phone] Ingris Johnson DO Primary Care Provider [phone] Ingris Johnson DO Primary Care Provider [phone] Encounter Details Date Type Department Care Team (Late st Contact Info) Description 01/30/2024 Ancillary Orders [facility], [address] [address] Tai Bang, JOHN PAUL [address] [place] [address] Chronic cough (Primary Dx) Social History Tobacco [...] [facility] Pulmonary, Allergy and Critical Care Medicine [address] [place] [address] Patrick Henson MD [address] [place] [address] documented as of this encounter Results * [...] No significant skeletal abnormality. IMPRESSION: Normal chest. Tai Bang TRIGONOMETRY TEACHER IMG XR CHEST Final Result documented in this encounter Visit Diagnoses Diagnosis Chronic cough- Primary Cough Chronic cough Cough documented in this encounter Care Teams Etch Operator Semiconductor Wafers Relationship Specialty Start Date End Date Fallon Portillo PA [email or web address] PCP - General Physician Client Care Specialist 09/02/22 05/01/24 Ingris Johnson DO [address] [place] [address] PCP - General Family Medicine 05/02/24 10/07/24 Ingris Johnson DO [address] [place] [address] PCP - General Family Medicine 10/08/24 Yisel Boles MD [address] [place] [address] Insurance Assigned Provider 07/15/23 03/20/24 documented as of this encounter Additional Source Comments The information contained in this document represents components of the legal health record. It is not the complete legal health record.[facility]
--- OUTSIDE RECORDS SUMMARY | 2025-02-05 16:46 | XMS_ITS | Encounter Summary ---
Author Organization [facility] Address [address] [place] [address] [place] [address] Phone Care Team Providers Care Lighting Designer Name Role Phone Fallon Portillo Primary Care Provider [phone] Yisel Boles MD Unavailable [phone] Ingris Johnson DO Primary Care Provider [phone] Ingris Johnson DO Primary Care Provider [phone] Reason for Referral * MRI/CAT Scan - Closed Specialty Diagnoses / Procedures Referred By Contemilia t Referred To Contact Radiology Diagnoses Acute pain of right knee Procedures MRI Knee (Right) CHG MRI LOWER EXTREM JT, W/O CONTRAST CHG MRI, JOINT OF LEG W/CONTRAST CHG MRI, JOINT OF LEG. Fallon Morton PA [address] [place] [address] Phone: tel: fax: [email or web address] Referral ID Status Reason Start Date Expiration Date Visits Re quested Visits Authorized [id number] Closed 05/22/2023 06/21/2023 1 1 Encounter Details Date Type Department Care Team (Latest Contact Info) Description 04/25/2023 Transcribe Orders [facility] Department [address] [place], [place] [id number] Fallon Portillo PA [address] [place] [address] [email or web address] Acute pain of right knee (Primary [...] [facility] Pulmonary, Allergy and Critical Care Medicine [address] [place] [address] Patrick Henson MD [address] [place] [address] documented as of this encounter Results * [...] communicated on 05/22/2023 5:36 PM, Message ID [id number]. Narrative 05/22/2023 5:36 PM EST MRI KNEE WITHOUT CONTRAST (RIGHT) Referring clinician's provided indication for this examination in [facility]: Outside Radiology Order; ACUTE RIGHT KNEE PAIN [...] was communicated on 05/22/2023 5:36 PM,Message ID [id number]. Fallon SHEPHERD IMG MR EXTREMITY Final Result documented in this encounter Visit Diagnoses Diagnosis Acute pain of right knee- Primary Acute pain of right knee documented in this encounter Additional Health Concerns Infection Onset Date Last Indicated Resolved Time CoV-Risk 05/25/2023 05/25/2023 06/05/2023 1:24 AM EST documented as of this encounter Care Teams Lighting Designer Relationship Specialty Start Date End Date Fallon Portillo PA [email or web address] PCP - General Physician Sample Box Maker 09/02/22 05/01/24 Ingris Johnson DO [address] [place] [address] PCP - General Family Medicine 05/02/24 10/07/24 Ingris Johnson DO [address] [place] [address] PCP - General Family Medicine 10/08/24 Yisel Boles MD [address] [place] [address] Insurance Assigned Provider 07/15/23 03/20/24 documented as of this encounter Additional Source Comments The information contained in this document represents components of the legal health record. It is not the complete legal health record.[facility]
== END 2025-02-05 13:09 | disposition home or self-care (01) ==
LOC: HO.US 13:08
PROVIDERS: PCP Family Medicine; Visit Provider Family Medicine
DX: N93.9 Abnormal uterine and vaginal bleeding, unspecified (principal)
CPT/HCPCS: 76830; 76856

== ENCOUNTER → 2025-02-05 13:37 | Outpatient (BNV) | payer OTHER, SELFPAY | PROVIDERS: PCP Family Medicine; Visit Provider Radiology Diagnostic Radiology | DX: N93.9 Abnormal uterine and vaginal bleeding, unspecified (principal); N83.291 Other ovarian cyst, right side | CPT/HCPCS: 76830; 76856 ==

== ENCOUNTER 2025-03-04 08:53 | Outpatient (REF) | payer OTHER, SELFPAY ==
[2025-03-04 09:11] LABS: MANUAL DIFF FLAG NO
[2025-03-04 09:40] LABS: Hematocrit 38.0 % (37.0-47.0); Hemoglobin 13.1 g/dl (12.0-16.0); Imm Gran Abs Auto 0.01 X10*3/uL (0.00-0.03); Imm Gran Pct Auto 0.2 % (0.0-0.4); Lymphocytes Absolute Auto 2.4 X10*3/uL (1.2-4.9); Mean Corpuscular HGB Conc 34.5 g/dl (31.0-35.0); Mean Corpuscular Hemoglobin 30.8 pg (27.0-33.0); Mean Corpuscular Volume 89.2 fL (80.0-98.0); NRBC Abs Auto 0.000 X10*3/uL (0.0-0.012); NRBC Pct Auto 0.0 /100WBC (0.0-0.2); Platelet Count 211 X10*3/uL (160-400); Red Blood Count 4.26 X10*6/uL (4.20-5.50); White Blood Count 5.3 X10*3/uL (4.8-10.8)
[2025-03-04 09:43] LABS: Fibrinogen 386 MG/DL (259-690); INTERNATIONAL NORM RATIO 0.9 (0.9-1.1); Prothrombin Time 11.5 SEC (11.2-13.5)
[2025-03-04 09:46] LABS: Partial Thromboplastin Time 29.1 SEC (26.7-34.1)
[2025-03-04 09:47] LABS: UPreg QC Valid YES
[2025-03-04 10:14] LABS: Alanine Aminotransferase 16 U/L (0-31); Albumin Level 4.6 g/dL (3.5-5.0); Alkaline Phosphatase 39 U/L (39-117); Anion Gap 8 (12-20); Aspartate Amino Transferase 17 U/L (5-31); Blood Urea Nitrogen 17 mg/dL (9-16); Calcium 9.3 mg/dL (8.4-10.2); Carbon Dioxide 26 mmol/L (22-29); Chloride 108 mmol/L (96-108); Estimated Glomerular Filt Rate > 60; Potassium 4.2 mmol/L (3.3-5.1); Sodium 138 mmol/L (135-145); Total Protein 7.1 g/dL (6.5-8.0)
[2025-03-04 10:30] LABS: Thyroid Stimulating Hormone 2.18 uIU/mL (0.32-4.0)
== END 2025-03-04 08:54 | disposition home or self-care (01) ==
LOC: HO.LAB 08:53
PROVIDERS: PCP Family Medicine; Visit Provider Family Medicine
DX: Z13.29 Encounter for screening for other suspected endocrine disorder (principal); N93.9 Abnormal uterine and vaginal bleeding, unspecified
CPT/HCPCS: 36415; 80053; 81025; 84443; 85025; 85384; 85610; 85730

== ENCOUNTER 2025-03-13 09:21 | Outpatient (REF) | payer OTHER, SELFPAY ==
--- OUTSIDE RECORDS SUMMARY | 2025-03-13 10:30 | XMS_ITS | Encounter Summary ---
Author Organization [facility] Address [address] [facility] [address] [place] [address] Phone Care Team Providers Care Application Spec Name Role Phone RadongtoyaSylMayurikat Flores CNP Primary Care Provider + Fallon Portillo Primary Care Provider [phone] Yisel Boles MD Unavailable [phone] Ingris Johnson DO Primary Care Provider [phone] Ingris Johnson DO Primary Care Provider [phone] Encounter Details Date Type Department Care Team (Late st Contact Info) Description 06/30/2021 Ancillary Orders [facility] Rheumatology [address] [place] [address] Susanna Hyatt MD [address] [facility], [address] [place] [address] [email or web address] Pneumonia due to COVID-19 virus Social [...] Care Team (Late st Contact Info) Description 04/15/2025 10:00 AM EST Office Visit [facility] Pulmonary, Allergy and Critical Care Medicine 10 [place] [address] Isha Porter MD 10 [facility] 2nd [place] [address] [email or web address] documented as of this encounter Visit Diagnoses Diagnosis Pneumonia due to COVID-19 virus documented in this encounter Additional Health Concerns Infection Onset Date Last Indicated Resolved Time CoV-Risk 05/25/2023 05/25/2023 06/05/2023 1:24 AM EST documented as of this encounter Care Teams Application Spec Relationship Specialty Start Date End Date Mayuri Michael CNP [address] [place] [address] [email or web address] PCP - General 01/24/17 09/01/22 Fallon Portillo PA [address] [place] [address] [email or web address] PCP - General Physician Image Consultant 09/02/22 05/01/24 Ingris Johnson DO [address] [place] [address] [email or web address] PCP - General Family Medicine 05/02/24 10/07/24 Ingris Johnson DO [address] [place] [address] PCP - General Family Medicine 10/08/24 Yisel Boles MD [address] [place] [address] [email or web address] Insurance Assigned Provider 07/15/23 03/20/24 documented as of this encounter Additional Source Comments The information contained in this document represents components of the legal health record. It is not the complete legal health record.[facility]
--- OUTSIDE RECORDS SUMMARY | 2025-03-13 10:30 | XMS_ITS | Clinical Summary ---
Author Organization [employer] Address [address] [facility] 7t [place] [address] Care Team Providers Care Assistant Accounting Manager Name Role Phone Ingris Johnson DO Primary Care Provider [phone] Allergies Active Allergy Reactions Criticality Noted Date Comments Fluticasone Other 12/27/2016 Other reaction(s): epistaxis Nose Bleeds Latex Hives 12/27/2016 Lidocaine Rash Low 10/22/2024 Other 02/02/2024 Dissolvable stitches Oxycodone-Acetaminophen Itching,Rash Low 12/27/2016 Other reaction(s): hives Penicillin G Anaphylaxis High 12/27/2016 Other reaction(s): hives-as a child Reyno Oil Unknown 08/01/2022 Vancomycin Itching,Rash Low 12/27/2016 Other reaction(s): hives Medications dicyclomine (Bentyl) 10 MG capsule 12/18/19 22 Active albuterol (2.5 MG/3ML) 0.083% nebulizer solutionIndica tions:Cough, unspecified type Take 3 mL (2.5 mg) by nebulization if needed in the morning, at noon, in the evening, and at bedtime for wheezing or shortness of breath for up to 365 doses. 1095 mL 12/22/19 23 Active UNABLE TO FIND Nitric Oxide 02/20/20 24 Active [place]-3 Fatty Acids (Fish Oil) 1000 MG capsule delayed-releas e Take 1,000 mg by mouth Once per day. 02/20/20 24 Active Lysine 500 MG capsule Take 500 mg by mouth Once per day. 02/20/20 24 Active Beclomethasone Diprop HFA (Qvar) 80 MCG/ACT inhaler Inhale 2 puffs 2 times daily. 10/23/19 Active Budeson-Glycop yrrol-Formoter ol (Breztri Aerosphere) 160-9-4.8 MCG/ACT aerosol Inhale 2 puffs 2 times daily. 10/23/19 25 2025 Active Atrovent HFA 17 MCG/ACT inhaler Inhale 2 puffs every 6 (six) hours if needed for wheezing or shortness of breath. 11/22/19 25 Active valACYclovir (Valtrex) 1 g tabletIndicati ons:H/O cold sores 1 tab po BID x 5 days starting on first day of outbreak, repeat course as needed every 2 weeks 60 tablet 2 02/20/20 Active lidocaine-pril ocaine (Emla) 2.5-2.5 % cream Apply topically 1 (one) time if needed for mild pain or moderate pain. 07/12/19 25 2024 Discontinued(T herapy completed) LORazepam (Ativan) 0.5 MG tablet Take 0.5 mg by mouth every 6 (six) hours if needed for anxiety or sedation. 07/16/19 25 2024 Discontinued(T herapy completed) valACYclovir (Valtrex) 1 g tablet Take 1,000 mg by mouth 4 times daily. 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 She did benefit from Celebrex. After clinical and ultrasonographic evaluation [place] [facility] [place] Lewis on 11/09/2020 there [...] her a second opinion rheumatology consultation [place] [facility] [place]-she was seen on 09/23/[address] Crystal Neely and at that time did not have flare . Resolved Problems Problem Noted Date Diagnosed Date Resolved Date Influenza A 05/09/2024 05/28/2024 Encounters Date Type Department Care Team Description 03/12/[address] [address] Ingris Johnson DO Lab Results 02/18/2025 8:15 AM EST Office Visit [address] [address] Ingris Johnson DO Abnormal uterine bleeding (AUB) (Primary Dx); Cyst of right ovary; Recurrent cold sores 02/18/[address] [address] Ingris Johnson DO H/O cold sores 02/15/2025 Travel 02/13/2025 Results Follow-Up [address] [address] Ingris Johnson DO US Pelvis Transvaginal 12/30/2024 Telephone [employer] [address] [place], [place] [id number] Ingris Johnson DO from Last 3 Months Immunizations Immunization Administration [...] Sign Reading Time Taken Comments Blood Pressure 98/62 02/18/2025 8:13 AM EST Pulse 58 02/18/2025 8:13 AM EST Temperature 36.5 C (97.7 F) 02/18/2025 8:13 AM EST Respiratory Rate 16 04/15/2024 2:19 PM EST [...] Description 03/24/2025 8:30 AM EST Office Visit [facility] DENTAL [address] [place] [address] Aletha Haddad Health Maintenance Due Date Last Done Comments HIV Screening 1989 Pneumococcal Vaccine: Pediatrics (0 to 5 Years) and At-Risk Patients (6 to 49) Years (1 of 2 - PCV) 2008 COVID-19 Vaccine (1 - season) 2024 Influenza Vaccine (#1) 2024 Dental Oral Exam 03/19/2025 09/16/2024, , 07/18/2023, Additional history exists Dental Prophylaxis 03/19/2025 09/16/2024, 1 , 07/18/2023, Additional history exists Alcohol/Substance Use Screening 04/15/2025 04/15/2024 Disability Screening 05/08/2025 05/08/2024 Depression Screening 07/08/2025 07/08/2024, 07/09/19 Family Planning (PISQ) 07/08/2025 07/08/2024 SDOH Screening 07/08/2025 07/08/2024 Dental X-Ray: Bitewings 09/17/2025 09/17/19, 01/12/2024, 07/18/2023, Additional history exists Tobacco Screening 02/18/2026 02/18/2025 Dental X-Ray: Full Mouth 07/18/2026 07/18/2023, 11/09 [...] Procedure Name Priority Date/Time Associated Diagnosis Comments FIBRINOGEN ACTIVITY, CLAUSS Routine 03/04/2025 Abnormal uterine bleeding (AUB) APTT Routine 03/04/2025 Abnormal uterine bleeding (AUB) PROTHROMBIN TIME-INR Routine 03/04/2025 Abnormal uterine bleeding (AUB) HCG, TOTAL, QL Routine 03/04/2025 Abnormal uterine bleeding (AUB) TSH Routine 03/04/2025 Abnormal uterine bleeding (AUB) COMPREHENSIVE METABOLIC PANEL Routine 03/04/2025 Abnormal uterine bleeding (AUB) CBC WITH AUTO DIFFERENTIAL Routine 03/04/2025 Abnormal uterine bleeding (AUB) US PELVIS TRANSVAGINAL Routine 02/05/2025 Abnormal uterine bleeding (AUB) Full PROPHYLAXIS - [...] Health Maintenance Results * CBC auto differential (03/04/2025) Blood Venous blood specimen / Unknown Ignyta DO LAB BLOOD ORDERABLES Final Res ult Performing Organization Address [facility] de Phone Number [facility] [address] [place] [address], [place] [phone] * Partial Thromboplastin Time, Activated (APTT) (03/04/2025) Blood Venous blood specimen / Unknown Ignyta LAB BLOOD ORDERABLES Final Res ult Performing Organization Address [facility] de Phone Number [facility] [address] [place] [address], [place] [phone] * Prothrombin Time-INR (03/04/2025) Blood Venous blood specimen / Unknown Ignyta LAB BLOOD ORDERABLES Final Res ult Performing Organization Address [facility] de Phone Number [facility] [address] [place] [address], [place] [phone] * Fibrinogen Activity, Clauss (03/04/2025) Blood Venous blood specimen / Unknown Ignyta LAB BLOOD ORDERABLES Final Res ult Performing Organization Address [facility] de Phone Number [facility] [address] [place] [address], [place] [phone] * HCG, Total, Qualitative (03/04/2025) Blood Venous blood specimen / Unknown [employer] LAB BLOOD ORDERABLES Final Res ult Performing Organization Address [facility] de Phone Number [facility] [address] [place] [address], [place] [phone] * TSH (03/04/2025) Blood Venous blood specimen / Unknown Ingris Johnson DO LAB BLOOD ORDERABLES Final Res ult [facility] [address] [place] [address], [place] [phone] * Comprehensive Metabolic Panel (03/04/2025) Blood Venous blood specimen / Unknown us Phamra Alex DO LAB BLOOD ORDERABLES Final Res ult Performing Organization Address [facility]/ZIP Co de Phone Number [facility] [address] [place] [address], [place] [phone] * US Pelvis Transvaginal (02/05/2025) Anatomical Region Laterality Modality Pelvis Ultrasound Ingris Johnson DO IMG US PROCEDURES Final Result * Pap - Age Guideline for Cervical Cancer and STDs (Aptima??) [298779] (07/08/2024 12:00 AM EDT) Age Guideline ACOG Testing 30-65 [facility] 1 ThinPrep vial (Cervical cells) 07/08/2024 07/08/2024 Comment:Cervical cells Narrative [facility] 1 - 07/10/2024 2:05 PM EDT Performed at: 01 - [facility] [place] [address], [address], [place], [place] [id number] [place] Laborer: Daniel Mace MD, Phone: [phone] Specimen Comment: [id number] Specimen Comment: Source.............Cervix Specimen Comment: LMP / Prev Treat...[id number]=[id number] Specimen Comment: No. of containers..01 ThinPrep Vial [facility] LAB CYTOLOGY ORDERABLES Final Result [facility] 1 * Image Guided Pap, Aptima HPV w/Reflex to HPV Genotypes 16 and 18,45 (07/08/2024 12:00 AM EDT) Diagnosis [facility] 1 Comment:NEGATIVE FOR INTRAEP ITHELIAL LESION OR MALIGNANCY. Adequacy: [facility] 1 Comment: Satisfactory for evaluation. Endocervical and/or squamous metaplastic cells (endocervical component) are present. Clinician provided ICD-10: [facility] 1 Comment:Z12.4 Performed by: [facility] 1 Comment:Lisa Mendoza, [facility] otechnologist (ASCP) Cytology Comment . [facility] 1 [...] - 07/10/2024 2:05 PM EDT Performed at: 01 - [facility] [address], [address], [place] [id number] [place] Laborer: Daniel Mace MD, Phone: [phone] Performed at: - [facility] [address], [address], [place], [place] [id number] [place] Laborer: Daniel Mace MD, Phone: [phone] [facility] ORDER[facility] Final Result [facility] 1 [facility] 2 * Hepatitis C antibody, qualitative (08/19/2020 9:33 AM EDT) HCV NON-REACTI VE NON-REACTI VE [facility] 08/19/2020 9:33 AM EDT us Susanna Hyatt MD HISTORICAL/NON ORDERABLE LABS Final Result [facility] [address] from Last 3 Months or Most Recently Relevant to Health Maintenance Insurance [employer] [place] [facility] [place] - HSN PARTIAL (MEDICAID) Care Teams Assistant Accounting Manager Relationship Specialty Start Date End Date Ingris Johnson DO [address] [place] [address] PCP - General Family Medicine 01/08/24
--- OUTSIDE RECORDS SUMMARY | 2025-03-13 10:30 | XMS_ITS | Encounter Summary ---
Author Organization [facility] Address [address] [facility] [address] [place] [address] Phone Care Team Providers Care Hospital Director Name Role Phone RaMayuri black Sandra TIMMONS Primary Care Provider + Fallon Portillo Primary Care Provider [phone] Yisel Boles MD Unavailable [phone] Ingris Johnson DO Primary Care Provider [phone] Ingris Johnson DO Primary Care Provider [phone] Encounter Details Date Type Department Care Team (Latest Contact Info) Description 07/05/2021 Ancillary Orders [facility] Rheumatology [address] [place] [address] Susanna Hyatt MD 22 [facility], [address] [place] [address] [email or web address] Inflammatory polyarthritis Social History Tobacco Use [...] Pulmonary, Allergy and Critical Care Medicine 10 [facility] [place] [address] Isha Porter MD 10 [facility] 2nd [place] [address] documented as of this encounter Results * [...] documented as of this encounter Care Teams Hospital Director Relationship Specialty Start Date End Date Mayuri Michael CNP [address] [place] [address] [email or web address] PCP - General 01/24/17 09/01/22 Fallon Portillo PA [address] [place] [address] [email or web address] PCP - General Physician Linseed Oil Order Filler 09/02/22 05/01/24 Ingris Johnson DO [address] [place] [address] [email or web address] PCP - General Family Medicine 05/02/24 10/07/24 Ingris Johnson DO [address] [place] [address] PCP - General Family Medicine 10/08/24 Yisel Boles MD [address] [place] [address] [email or web address] Insurance Assigned Provider 07/15/23 03/20/24 documented as of this encounter Additional Source Comments The information contained in this document represents components of the legal health record. It is not the complete legal health record.[facility]
--- OUTSIDE RECORDS SUMMARY | 2025-03-13 10:30 | XMS_ITS | Encounter Summary ---
Author Organization [facility] Address [address] [facility] [address] [place] [address] Phone Care Team Providers Care Photo Machine Operator Name Role Phone RaMayuri black Sandra TIMMONS Primary Care Provider + Fallon Portillo Primary Care Provider [phone] Yisel Boles MD Unavailable [phone] Ingris Johnson DO Primary Care Provider [phone] Ingris Johnson DO Primary Care Provider [phone] Encounter Details Date Type Department Care Team (Late st Contact Info) Description 06/30/2021 Ancillary Orders [facility] Rheumatology [address] [place] [address] Susanna Hyatt MD 22 [facility], [address] [place] [address] [email or web address] Social History Tobacco Use Types Packs/Day Years [...] Pulmonary, Allergy and Critical Care Medicine 10 [facility] [place] [address] Isha Porter MD 10 [facility] 2nd [place] [address] documented as of this encounter Visit Diagnoses Not on filedocumented in this encounter Additional Health Concerns Infection Onset Date Last Indicated Resolved Time CoV-Risk 05/25/2023 05/25/2023 06/05/2023 1:24 AM EST documented as of this encounter Care Teams Photo Machine Operator Relationship Specialty Start Date End Date Mayuri Michael CNP [address] [place] [address] [email or web address] PCP - General 01/24/17 09/01/22 Fallon Portillo PA [address] [place] [address] [email or web address] PCP - General Physician Manager Civil 09/02/22 05/01/24 Ingris Johnson DO [address] [place] [address] PCP - General Family Medicine 05/02/24 10/07/24 Ingris Johnson DO [address] [place] [address] PCP - General Family Medicine 10/08/24 Yisel Boles MD [address] [place] [address] Insurance Assigned Provider 07/15/23 03/20/24 documented as of this encounter Additional Source Comments The information contained in this document represents components of the legal health record. It is not the complete legal health record.[facility]
--- OUTSIDE RECORDS SUMMARY | 2025-03-13 10:30 | XMS_ITS | Encounter Summary ---
Author Organization [facility] Address [address] [place] [address] Phone Care Team Providers Care Line Supervisor Name Role Phone AlecSylMayurikat Flores CNP Primary Care Provider + Fallon Portillo Primary Care Provider [phone] Yisel Boles MD Unavailable [phone] Ingris Johnson DO Primary Care Provider [phone] Ingris Johnson DO Primary Care Provider [phone] Encounter Details Date Type Department Care Team (Latest Contact Info) Description 09/16/2021 Transcribe Orders [facility]leb Main [address] [place] [address] Lisa Rodriguez PA-C [address], [address] [place] [address] [email or web address] Diarrhea, unspecified type (Primary Dx); Lower abdominal [...] Critical Care Medicine [address] [place] [address] Isha Porter MD 10 [facility] 2nd [place] [address] documented as of this encounter Results * Ferritin (09/16/2021 10:01 AM EDT) FERRITIN 104 13 - 150 ug/L [facility] Blood 09/16/2021 10:0 1 AM EDT 09/16/2021 10:07 AM EDT us Lisa Rodriguez PA-C LAB BLOOD BKR ORDERABLES Final Result [address] [address] * TSH (09/16/2021 10:01 AM EDT) TSH 1.79 0.27 - 4.20 uIU/mL [facility] Blood 09/16/2021 10:0 1 AM EDT 09/16/2021 10:07 AM EDT us Lisa Rodriguez PA-C LAB BLOOD BKR ORDERABLES Final Result [address] [address] * Immunoglobulin A (09/16/2021 10:01 AM EDT) IgA 144 70 - 400 mg/dL [facility] Blood 09/16/2021 10:0 1 AM EDT 09/16/2021 10:07 AM EDT us Lisa Rodriguez PA-C LAB BLOOD BKR ORDERABLES Final Result [address] [address] * Lipase (09/16/2021 10:01 AM EDT) LIPASE 39 16 - 63 U/L [facility] Blood 09/16/2021 10:0 1 AM EDT 09/16/2021 10:07 AM EDT us Lias Rodriguez PA-C LAB BLOOD BKR ORDERABLES Final Result Performing Organization Address [facility] Co de Phone Number [address] [address] * C-Reactive Protein (09/16/2021 10:01 AM EDT) C REACTIVE PROTEIN <3.0 0.0 - 4.0 mg/L [facility] Blood 09/16/2021 10:0 1 AM EDT 09/16/2021 10:07 AM EDT us Lisa Rodriguez PA-C LAB BLOOD BKR ORDERABLES Final Result Performing Organization Address City/[facility]/ZIP Co de Phone Number [address] [address] * Comprehensive metabolic panel (09/16/2021 10:01 AM EDT) SODIUM 139 133 - 146 mmol/L [facility] POTASSIUM 5.1 3.3 - 5.1 mmol/L [facility] CHLORIDE 104 96 - 108 mmol/L [facility] CO2 27 21 - 35 mmol/L [facility] BUN 16 6 - 19 mg/dL [facility] CREATININE 0.80 0.5 - 1.5 mg/dL [facility] GLUCOSE 96 70 - 99 mg/dL [facility] ALBUMIN 4.5 3.9 - 4.8 g/dL [facility] TOTAL PROTEIN 7.7 6.5 - 8.0 g/dL [facility] CALCIUM 9.2 8.4 - 10.3 mg/dL [facility] ALKALINE PHOSPHATASE 39 39 - 117 U/L [facility] TOTAL BILIRUBIN 0.5 0.0 - 1.2 mg/dL [facility] AST 17 0 - 37 U/L [facility] ALT 12 0 - 40 U/L [facility] GLOBULIN 3.2 1 - 4.8 g/dL [facility] EGFR 100 >59 mL/min/1.7 3m2 [facility] Comment:Estimated glomerular filtration rate calculated using the CKD-EPI refit equation. ANION GAP 13 10 - 20 mmol/L [facility] Blood 09/16/2021 10:0 1 AM EDT 09/16/2021 10:07 AM EDT us Lisa Rodriguez PA-C LAB BLOOD BKR ORDERABLES Final Result Performing Organization Address City/State/[facility] Co de Phone Number [address] [address] documented in this encounter Visit Diagnoses Diagnosis Diarrhea, unspecified type- Primary Lower abdominal pain Abdominal pain, other specified site Rectal bleeding Hemorrhage of rectum and anus Constipation, unspecified constipation type documented in this encounter Additional Health Concerns Infection Onset Date Last Indicated Resolved Time CoV-Risk 05/25/2023 05/25/2023 06/05/2023 1:24 AM EST documented as of this encounter Care Teams Line Supervisor Relationship Specialty Start Date End Date Mayuri Michael CNP [address] [place] [address] [email or web address] PCP - General 01/24/17 09/01/22 Fallon Portillo PA [address] [place] [address] PCP - General Physician Inspector Tester Sorter 09/02/22 05/01/24 Ingris Johnson DO [address] [place] [address] [email or web address] PCP - General Family Medicine 05/02/24 10/07/24 Ingris Johnson DO [address] [place] [address] PCP - General Family Medicine 10/08/24 Yisel Boles MD [address] [place] [address] [email or web address] Insurance Assigned Provider 07/15/23 03/20/24 documented as of this encounter Additional Source Comments The information contained in this document represents components of the legal health record. It is not the complete legal health record.[facility]
--- OUTSIDE RECORDS SUMMARY | 2025-03-13 10:30 | XMS_ITS | Encounter Summary ---
Author Organization [employer] Address [address] [facility] 7t [place] [address] Care Team Providers Care Route Aide Name Role Phone Ingris Johnson DO Primary Care Provider [phone] Encounter Details Date Type Department Care Team (Late st Contact Info) Description 04/06/2024 Orders Only [facility] [address] [place] [address] nIgris Johnson DO [address] [place] [address] Social History Tobacco Use Types Packs/Day Years [...] 03/24/2025 8:30 AM EST Office Visit [facility] [address] [place] [address] Aletha Haddad documented as of this encounter [...] on filedocumented in this encounter Care Teams Route Aide Relationship Specialty Start Date End Date Ingris Johnson DO [address] [place] [address] PCP - General Family Medicine 01/08/24 documented as of this encounter
--- OUTSIDE RECORDS SUMMARY | 2025-03-13 10:30 | XMS_ITS | Clinical Summary ---
Author Organization [address] [facility] [address] [facility] Address [address] [place] [address] Phone Care Team Providers Care Clay Puddler Name Role Phone Ingris Johnson MD Primary Care Provider [phone] Social History Tobacco Use Types Packs/Day Years [...] of Health Screening 07/05/2024 COVID-19 Vaccine ( season) 2024 Influenza Vaccine (#1) 2024 Cervical [...] patient's age to complete this topic Insurance [facility] Care Teams Clay Puddler Relationship Specialty Start Date End Date Ingris Johnson MD PCP - General Family Medicine 07/05/24
--- OUTSIDE RECORDS SUMMARY | 2025-03-13 10:30 | XMS_ITS | Encounter Summary ---
Author Organization [employer] Address [address] [facility] [address] [place] [address] Care Team Providers Care Oxygen Equipment Technician Name Role Phone Ingris Johnson DO Primary Care Provider [phone] Encounter Details Date Type Department Care Team (Late st Contact Info) Description 04/22/2024 Orders Only [place] [address] [place] [address] Ingris Johnson DO [address] [place], [place] [id number] Social History Tobacco Use Types Packs/Day Years [...] Description 03/24/2025 8:30 AM EST Office Visit [facility] [address] [place] [address] Aletha Haddad documented as of this encounter Visit Diagnoses Not on filedocumented in this encounter Care Teams Oxygen Equipment Technician Relationship Specialty Start Date End Date Ingris Johnson DO [address] [place] [address] PCP - General Family Medicine 01/08/24 documented as of this encounter
--- OUTSIDE RECORDS SUMMARY | 2025-03-13 10:31 | XMS_ITS | Encounter Summary ---
Author Organization [facility] Address [address] [place] [address] Phone Care Team Providers Care Finishing Tunnel Operator Name Role Phone Fallon Portillo Primary Care Provider [phone] Yisel Boles MD Unavailable [phone] Ingris Johnson DO Primary Care Provider [phone] Ingris Johnson DO Primary Care Provider [phone] Encounter Details Date Type Department Care Team (Late st Contact Info) Description 05/25/2023 Procedure Pass [facility], Ct Scan - [address] [id number] Social History Tobacco Use Types Packs/Day Years [...] 2:05 PM EST Johanna Elias, KATY * Anderson Suicide Severity Rating Scale (Screener/Recent Self-Report) Question [...] [facility] [address] [place] [address] Isha Porter MD [address] [place] [phone] documented as of this encounter Visit Diagnoses Not on filedocumented in this encounter Additional Health Concerns Infection Onset Date Last Indicated Resolved Time CoV-Risk 05/25/2023 05/25/2023 06/05/2023 1:24 AM EST documented as of this encounter Care Teams Finishing Tunnel Operator Relationship Specialty Start Date End Date Fallon Portillo PA [email or web address] PCP - General Physician Diet Consultant 09/02/22 05/01/24 Ingris Johnson DO [address] [place] [id number] [email or web address] PCP - General Family Medicine 05/02/24 10/07/24 Ingris Johnson DO [address] [place] [address] PCP - General Family Medicine 10/08/24 Yisel Boels MD [address] [place] [phone] [email or web address] Insurance Assigned Provider 07/15/23 03/20/24 documented as of this encounter Additional Source Comments The information contained in this document represents components of the legal health record. It is not the complete legal health record[facility]
--- OUTSIDE RECORDS SUMMARY | 2025-03-13 10:31 | XMS_ITS | Encounter Summary ---
Author Organization [facility] Address [address] [place] [address] Phone Care Team Providers Care Appraiser Irrigation Tax Name Role Phone Mayuri Michael CNP Primary Care Provider + Fallon Portillo Primary Care Provider [phone] Yisel Boles MD Unavailable Ingris Johnson DO Primary Care Provider [phone] Ingris Johnson DO Primary Care Provider [phone] Encounter Details Date Type Department Care Team (Late Contact Info) Description 11/26/2021 Procedure Pass [facility]oscopy Admitting Dept Virtual Department [address] [place] [address] Social History Tobacco Use Types [...] Upcoming Encounters Date Type Department Care Team ([facility] Contact Info) Description 04/15/2025 10:00 AM EST Office Visit [facility] [address] [place] [address] Isha Porter MD [address] [place] [phone] [email or web address] documented as of this encounter Visit Diagnoses Not on filedocumented in this encounter Additional Health Concerns Infection Onset Date Last Indicated Resolved Time CoV-Risk 05/25/2023 05/25/2023 06/05/2023 1:24 AM EST documented as of this encounter Care Teams Appraiser Irrigation Tax Relationship Specialty Start Date End Date Mayuri Michael CNP [address] [place] [address] [email or web address] PCP - General 01/24/17 09/01/22 Fallon Portillo PA [address] [place] [phone] [email or web address] PCP - General Physician Infantry Indirect Fire Crewmember 09/02/22 05/01/24 Ingris Johnson DO [address] [place] [address] [email or web address] PCP - General Family Medicine 05/02/24 10/07/24 Ingris Johnson DO [address] [place] [address] PCP - General Family Medicine 10/08/24 Yisel Boles MD [address] [place] [address] [email or web address] Insurance Assigned Provider 07/15/23 03/20/24 documented as of this encounter Additional Source Comments The information contained in this document represents components of the legal health record. It is not the complete legal health record.[facility]
--- OUTSIDE RECORDS SUMMARY | 2025-03-13 10:31 | XMS_ITS | Clinical Summary ---
Author Organization [facility] Address [address] [place] [id number] Phone Care Team Providers Care Fishing Rod Marker Name Role Phone Ingris Johnson Primary Care Provider [phone] Allergies Active Allergy Reactions Criticality Noted Date Comments Adhesive Tape-Silicones Rash Low 09/02/2022 Fluticasone Other (See Comments) 12/27/2016 Nose Bleeds Latex Hives 12/27/2016 Lidocaine Rash Low 10/22/2024 Other Other (See Comments) 12/27/2016 Aberdeen Nuts: Itchy Throat dissolvable sutures Skin reacts [...] is encouraged to discuss her options with pool installer but according to her report she did [...] is encouraged to discuss her options with pool installer but according to her report she did [...] - Schedule follow-up appointment in March. Orders: hvwouwdett-ggztqqsj-igcjjnrhix (BREZTRI AEROSPHERE) 160-9-4.8 mcg/actuation inhaler; Inhale 2 [...] 7:51 PM EST): Follow closely with her pool installer and schedule formal PFTs for better assessment. Dry skin 06/10/2021 Assessment & Plan (06/13/2021 7:49 PM EST): To make sure that she is not developing scleroderma-like features I added centromere and SCL antibodies to next blood draw. She may try different skin products such as Lubriderm, Neutrogena Icelandic formula fragrance free versus Eucerin or Aquaphor. [...] Carefully continue lubricating drops as instructed by recreation facility manager. Avoid prolonged air from fans or air [...] for the 2nd opinion rheumatology consultation at [facility] Rheumatology 09/23/2020 when she was fairly asymptomatic so there was no clear indication for adding any DMARDs at that time. She developed knee swelling the day following [facility] visit and got labs after visit with me on 09/24/2020 that revealed CRP at 9.9 (0-4.0). The subsequent visit in early November with Dr. Lewis at [facility] and musculoskeletal ultrasound did not reveal any [...] 19. After clinical and ultrasonographic evaluation at [facility] by Dr. Lewis on 11/09/2020 there were no signs of inflammatory arthritis necessitating DMARD therapy at this time. Assessment & Plan (10/10/2023 10:32 PM EDT): Additional labs have not revealed immunologic signs of rheumatoid arthritis versus systemic lupus erythematosus versus Sjogren's syndrome. She was seen for the 2nd opinion rheumatology consultation at [facility] Rheumatology 09/23/2020 when she was fairly asymptomatic so there was no clear indication for adding any DMARDs at that time. She developed knee swelling the day following [facility] visit and got labs after visit with [...] in early November with Dr. Lewis at [facility] and musculoskeletal ultrasound did not reveal any [...] 19. After clinical and ultrasonographic evaluation at [facility] by Dr. Lewis on 11/09/2020 there were no signs of inflammatory arthritis necessitating DMARD therapy at this time. Assessment & Plan (05/01/2023 4:57 PM EST): Additional labs have not revealed immunologic signs of rheumatoid arthritis versus systemic lupus erythematosus versus Sjogren's syndrome. She was seen for the 2nd opinion rheumatology consultation at [facility] Rheumatology 09/23/2020 when she was fairly asymptomatic so there was no clear indication for adding any DMARDs at that time. She developed knee swelling the day following [facility] visit and got labs after visit with [...] in early November with Dr. Lewis at [facility] and musculoskeletal ultrasound did not reveal any [...] After recent clinical and ultrasonographic evaluation at [facility] by Dr. Lewis on 11/09/2020 there are no signs of inflammatory arthritis necessitating DMARD therapy at this time. Assessment & Plan (09/02/2022 2:47 PM EDT): Additional labs have not revealed immunologic signs of rheumatoid arthritis versus systemic lupus erythematosus versus Sjogren's syndrome. She was seen for the 2nd opinion rheumatology consultation at [facility] Rheumatology 09/23/2020 when she was fairly asymptomatic so there was no clear indication for adding any DMARDs at that time. She developed knee swelling the day following [facility] visit and got labs after visit with [...] in early November with Dr. Lewis at [facility] and musculoskeletal ultrasound did not reveal any [...] After recent clinical and ultrasonographic evaluation at [facility] by Dr. Lewis on 11/09/2020 there are no signs of inflammatory arthritis necessitating DMARD therapy at this time. Assessment & Plan (05/05/2022 12:30 PM EST): Additional labs have not revealed immunologic signs of rheumatoid arthritis versus systemic lupus erythematosus versus Sjogren's syndrome. She was seen for the 2nd opinion rheumatology consultation at [facility] Rheumatology 09/23/2020 when she was fairly asymptomatic so there was no clear indication for adding any DMARDs at that time. She developed knee swelling the day following [facility] visit and got labs after visit with [...] in early November with Dr. Lewis at [facility] and musculoskeletal ultrasound did not reveal any [...] After recent clinical and ultrasonographic evaluation at [facility] by Dr. Lewis on 11/09/2020 there are no signs of inflammatory arthritis necessitating DMARD therapy at this time. Assessment & Plan (01/12/2022 10:08 AM EDT): Additional labs have not revealed immunologic signs of rheumatoid arthritis versus systemic lupus erythematosus versus Sjogren's syndrome. She was seen for the 2nd opinion rheumatology consultation at [facility] Rheumatology 09/23/2020 when she was fairly asymptomatic so there was no clear indication for adding any DMARDs at that time. She developed knee swelling the day following [facility] visit and got labs after visit with [...] in early November with Dr. Lewis at [facility] and musculoskeletal ultrasound did not reveal any [...] After recent clinical and ultrasonographic evaluation at [facility] by Dr. Lewis on 11/09/2020 there are no signs of inflammatory arthritis necessitating DMARD therapy at this time. Assessment & Plan (11/24/2021 10:19 AM EDT): Additional labs have not revealed immunologic signs of rheumatoid arthritis versus systemic lupus erythematosus versus Sjogren's syndrome. She was seen for the 2nd opinion rheumatology consultation at [facility] Rheumatology 09/23/2020 when she was fairly asymptomatic so there was no clear indication for adding any DMARDs at that time. She developed knee swelling the day following [facility] visit and got labs after visit with [...] in early November with Dr. Lewis at [facility] and musculoskeletal ultrasound did not reveal any [...] After recent clinical and ultrasonographic evaluation at [facility] by Dr. Lewis on 11/09/2020 there are no signs of inflammatory arthritis necessitating DMARD therapy at this time. Assessment & Plan (09/25/2021 4:39 PM EDT): Additional labs have not revealed immunologic signs of rheumatoid arthritis versus systemic lupus erythematosus versus Sjogren's syndrome. She was seen for the 2nd opinion rheumatology consultation at [facility] Rheumatology 09/23/2020 when she was fairly asymptomatic so there was no clear indication for adding any DMARDs at that time. She developed knee swelling the day following [facility] visit and got labs after visit with [...] in early November with Dr. Lewis at [facility] and musculoskeletal ultrasound did not reveal any [...] After recent clinical and ultrasonographic evaluation at [facility] by Dr. Lewis on 11/09/2020 there are no signs of inflammatory arthritis necessitating DMARD therapy at this time. Assessment & Plan (07/06/2021 10:54 AM EDT): Additional labs have not revealed immunologic signs of rheumatoid arthritis versus systemic lupus erythematosus versus Sjogren's syndrome. She was seen for the 2nd opinion rheumatology consultation at [facility] Rheumatology 09/23/2020 when she was fairly asymptomatic so there was no clear indication for adding any DMARDs at that time. She developed knee swelling the day following [facility] visit and got labs after visit with [...] in early November with Dr. Lewis at [facility] and musculoskeletal ultrasound did not reveal any [...] After recent clinical and ultrasonographic evaluation at [facility] by Dr. Lewis on 11/09/2020 there are no signs of inflammatory arthritis necessitating DMARD therapy at this time. She requested an excuse from work for next Monday-06/28/2021. Assessment & Plan (06/10/2021 9:56 AM EST): Additional labs have not revealed immunologic signs of rheumatoid arthritis versus systemic lupus erythematosus versus Sjogren's syndrome. She was seen for the 2nd opinion rheumatology consultation at [facility] Rheumatology 09/23/2020 when she was fairly asymptomatic so there was no clear indication for adding any DMARDs at that time. She developed knee swelling the day following [facility] visit and got labs after visit with [...] in early November with Dr. Lewis at [facility] and musculoskeletal ultrasound did not reveal any [...] After recent clinical and ultrasonographic evaluation at [facility] by Dr. Lewis on 11/09/2020 there are no signs of inflammatory arthritis necessitating DMARD therapy at this time. Assessment & Plan (04/04/2021 6:43 PM EST): Additional labs have not revealed immunologic signs of rheumatoid arthritis versus systemic lupus erythematosus versus Sjogren's syndrome. She was seen for the 2nd opinion rheumatology consultation at [facility] Rheumatology 09/23/2020 when she was fairly asymptomatic so there was no clear indication for adding any DMARDs at that time. She developed knee swelling the day following [facility] visit and got labs after visit with [...] in early November with Dr. Lewis at [facility] and musculoskeletal ultrasound did not reveal any [...] After recent clinical and ultrasonographic evaluation at [facility] by Dr. Lewis on 11/09/2020 there are no signs of inflammatory arthritis necessitating DMARD therapy at this time. Assessment & Plan (12/04/2020 10:22 PM EDT): Additional labs have not revealed immunologic signs of rheumatoid arthritis versus systemic lupus erythematosus versus Sjogren's syndrome. She was seen for the 2nd opinion rheumatology consultation at [facility] Rheumatology 09/23/2020 when she was fairly asymptomatic so there was no clear indication for adding any DMARDs at that time. She developed knee swelling the day following [facility] visit and got labs after visit with [...] After recent clinical and ultrasonographic evaluation at [facility] by Dr. Lewis on 11/09/2020 there are no signs of inflammatory arthritis necessitating DMARD therapy at this time. Assessment & Plan (10/27/2020 10:30 PM EDT): Additional labs have not revealed immunologic signs of rheumatoid arthritis versus systemic lupus erythematosus versus Sjogren's syndrome. She was seen for the 2nd opinion rheumatology consultation at [facility] Rheumatology 09/23/2020 when she was fairly asymptomatic so there was no clear indication for adding any DMARDs at that time. She developed knee swelling the day following [facility] visit and got labs after visit with [...] for the 2nd opinion rheumatology consultation at [facility] Rheumatology 09/23/2020 when she was fairly asymptomatic so there was no clear indication for adding any DMARDs at that time. She developed knee swelling the day following [facility] visit and got labs after visit with [...] offered her 2nd opinion rheumatology consultation at [facility] to make sure that there are no [...] offering her second opinion rheumatology consultation at [facility] to make sure that there are no [...] offering her second opinion rheumatology consultation at [facility] or [facility] to make sure that there are [...] She is requesting a letter to her workforce advisor allowing her to continue working- see details in communication section of [employer] with today's date. History of bunionectomy of [...] her a second opinion rheumatology consultation at [facility] Rheumatology-she was seen on 09/23/[address] [...] her a second opinion rheumatology consultation at [facility] Rheumatology. Assessment & Plan (08/25/2020 8:59 PM [...] her to address it separately with her pool installer. I have reminded her that if she [...] her to address it separately with her pool installer. Class 1 obesity due to exces s [...] of right knee 08/01/201809/2022 Inflammatory arthritis 11/03/201709/04 Family History Medical History Relation Comments No [...] [facility] [address] [place] [id number] Isha Porter MD [address] [facility] 2nd [place] [address] Health Maintenance Due Date Last Done Comments DEPRESSION SCREENING 2001 HIV ONE-TIME SCREENING (18-6 5 YEARS) 2007 PNEUMOCOCCAL VACCINES (0-49 years) (1 of 2 - PCV) 2008 PAP SMEAR 2010 INFLUENZA VACCINE (#1) 2024 COVID-19 VACCINE (2024-2 6 season) 2024 COLOGUARD 03/03/2025 FIT TEST 03/03/2025 FOBT 03/03/2025 SIGMOIDOSCOPY 03/03/2025 VIRTUAL COLONOSCOPY 03/03/2025 SCREENING FOR DIABETES 04/30/2027 04/30/2024 COLONOSCOPY 11/18/2031 11/26/2021 COLORECTAL CANCER SCREENING 11/18/2031 Adult Td,Tdap Booster 04/20/2032 04/20/2022 , 02/13/2008 HEPATITIS C SCREENING Completed 08/19/2020 , 08/19/2020, 08/19/2020 SMOKING STATUS SCREENING (On ce After [...] this topic Medical Devices Implanted Type Area Distribution Accounting Clerk Device Identifier Shelf Expiration Date Model / Serial / Lot Screw Screw Bilateral: Foot Procedures Procedure Name Priority Date/Time Associated Diagnosis Comments ENDOSCOPY, COLON 11/26/2021 9:26 AM EDT HEPATITIS C ANTIBODY, QUALITATIVE Routine 08/19/2020 9:33 AM EDT Inflammatory polyarthritis Positive CARLENE (antinuclear antibody) from Last 3 Months or Most Recently Relevant to Health Maintenance Results * ENDOSCOPY, COLON (11/26/2021 9:26 AM EDT) Narrative Transcriptions Walter Griffith MD - 11/26/2021 9:26 AM EDT Patient Name: Maxwell Go Attending MD:: WALTER GRIFFITH MD Procedure Date: 11/26/2021 9:26 AM Date of : 1990 Age: 31 Admit Type: Outpatient Gender: Female Room: [facility] Referring MD: Mayuri Michael MD Exam Type: Colonoscopy Indications: Generalized abdominal pain, Rectal bleeding, Changein bowel habits Medications: Propofol per Anesthesia Procedure: Informed consent was obtained from the patientafter discussion of the indications, limitations, alternatives, benefits, and risks of the procedure. Risks specifically discussed include but are not limited to medication reactions, missed lesions, bleeding, perforation, or the need for emergent surgery. Throughout the procedure, the patient's blood pressure, pulse, end-tidal CO2, and oxygensaturations were monitored continuously. The Olympus adult variable colonoscope [id number] #2 was introduced through the anus and advanced to the terminal ileum, with identification of theappendiceal orifice and IC valve. The terminal ileum, ileocecal valve, appendiceal orifice, and rectum were photographed. The colonoscopy was performed without difficulty. The patient tolerated the procedurewell. The quality of the bowel preparation was excellent. The bowel preparation used was PEG in Gatoraide via split dose instruction. Complications: No immediate complications. Estimated blood loss:None. Findings: The digital rectal exam was normal. Pertinent negatives include no palpable rectal lesions. External hemorrhoids were found during perianalexam. The hemorrhoids were minimal. Internal hemorrhoids were found duringretroflexion. The hemorrhoids were small. The exam was otherwise without abnormality. The terminal ileum appeared normal. Retroflexion in the right colon was performed. Biopsies for histology were taken with a coldforceps from the ascending colon, transverse colon and descending colon for evaluation of microscopiccolitis. Impression: - External hemorrhoids. - Internal hemorrhoids. - The examination was otherwise normal. - The examined portion of the ileum was normal. - Biopsies were taken with a cold forceps from the ascending colon, transverse colon and descendingcolon for evaluation of microscopic colitis. Recommendation: - Await pathology results. - Repeat colonoscopy in 10 years for screening purposes. - Use fiber, for example Citrucel, Fibercon, Konsylor Metamucil. WALTER GRIFFITH MD 11/26/2021 10:07:09 AM This report has been signed electronically. Number of Addenda: 0 Note Initiated On: 11/26/2021 9:26 AM Procedure Code(s): --- Professional --- 73299, Colonoscopy, flexible; with biopsy, single or multiple --- Technical --- 59782, Colonoscopy, flexible; with biopsy, single or multiple Diagnosis Code(s): --- Professional --- K64.4, Residual hemorrhoidal skin tags K64.8, Other hemorrhoids R10.84, Generalized abdominal pain K62.5, Hemorrhage of anus and rectum R19.4, Change in bowel habit --- Technical --- K64.4, Residual hemorrhoidal skin tags K64.8, Other hemorrhoids R10.84, Generalized abdominal pain K62.5, Hemorrhage of anus and rectum R19.4, Change in bowel habit CPT copyright 2020 [employer]. All rights reserved. The codes documented in this report are preliminary and upon auditing coder reviewmay be revised to meet current compliance requirements. Procedure Date: 11/26/2021 9:26:[address] [place] [phone] us Mayuri Michael [facility] GI PROCEDURE ORDERABLES Final Result * Hepatitis C antibody, qualitative (08/19/2020 9:33 AM EDT) HCV NON-REACTIV E NON-REACTI VE [facility] Blood 08/19/2020 9:33 AM EDT 08/19/2020 9:42 AM EDT Susanna Hyatt MD LAB BLOOD BKR ORDERABLES Final Result [facility] [address] [place] [address] from Last 3 Months or Most Recently Relevant to Health Maintenance [place] [address] [place] [address] [place] [address] [place] [address] [employer] Care Teams Fishing Rod Marker Relationship Specialty Start Date End Date Ingris Johnson DO [address] [place] [id number] PCP - General Family Medicine 10/08/24 Additional Source Comments The information contained in this document represents components of the legal health record. It is not the complete legal health record.[facility]
--- OUTSIDE RECORDS SUMMARY | 2025-03-13 10:31 | XMS_ITS | Encounter Summary ---
Author Organization [facility] Address [address] [place] [phone] Phone Care Team Providers Care Automobile Lights Assembler Name Role Phone Mayuri Michael CNP Primary Care Provider + Mayuri Michael CNP Unavailable [phone] Tai Garcia MD Unavailable [phone] Barak CheemaM Unavailable Unavailable Fallon Portillo Primary Care Provider [phone] Yisel Boles MD Unavailable [phone] Ingris Johnson DO Primary Care Provider [phone] Ingris Johnson DO Primary Care Provider [phone] Reason for Referral * Physical Therapy (Routine) - Closed Specialty Diagnoses / Procedures Referred By Alejandra leal Referred To Contact Physical Therapy Diagnoses Encounter for rehabilitation Graciela Antony DPM Phone: tel: fax: [email or web address] Ashanti Kendall PT mailto:[email or web address] Referral ID Status Reason Start Date Expiration Date Visits Re quested Visits Authorized [id number] Closed 03/28/2018 03/28/2019 20 20 Encounter Details Date Type Department Care Team (Latest Contact Info) Description 03/20/2018 Transcribe Orders [facility] [address] [place] [address] Graciela Antony DPM 10 [facility] [address] [place] [address] [email or web address] Encounter for rehabilitation [...] Description 04/15/2025 10:00 AM EST Office Visit [facility] Pulmonary, Allergy and Critical Care Medicine [address] [place] [address] Isha Porter MD [address] [place] [phone] [email or web address] documented as of this encounter Procedures Procedure Name Priority Date/Time Associated Diagnosis Comments AMB REFERRAL TO [facility] PHYSICAL THERAPY Routine 04/09/2018 11:08 AM EST Encounter for rehabilitation documented in this encounter Results * Ambulatory referral to [facility] Physical Therapy (04/09/2018 11:08 AM EST) Graciela Antony DPM AMB [facility] REFERRALS Final Result documented in this encounter Visit Diagnoses Diagnosis Encounter for rehabilitation- Primary documented in this encounter Additional Health Concerns Infection Onset Date Last Indicated Resolved Time CoV-Exposed Comment:Recent close contact documented in the Travel/Symptom Screening Form 04/10/2021 04/25/2021 1:[address] CoV-Risk 05/25/2023 05/25/2023 06/05/2023 1:24 AM EST documented as of this encounter Care Teams Automobile Lights Assembler Relationship Specialty Start Date End Date Mayuri Michael CNP [address] [place] [id number] [email or web address] PCP - General 01/24/17 09/01/22 Fallon Portillo PA [address] [place] [address] [email or web address] PCP - General Physician Pipe Joints Supervisor 09/02/22 05/01/24 Ingris Johnson DO [address] [place] [address] PCP - General Family Medicine 05/02/24 10/07/24 Ingris Johnson DO [address] [place] [id number] PCP - General Family Medicine 10/08/24 Mayuri Michael CNP [address] [place] [phone] [email or web address] Historical LMR Provider 01/26/1704/17 Tai Garcia MD [address] [place] [id number] Historical LMR Provider 01/26/17 Barak Cheema DPM [address] [place] [address] Historical LMR Provider 01/26/1704/17/21 Yisel Boles MD [address] [place] [phone] Insurance Assigned Provider 07/15/23 03/20/24 documented as of this encounter Additional Source Comments The information contained in this document represents components of the legal health record. It is not the complete legal health record.[facility]
--- OUTSIDE RECORDS SUMMARY | 2025-03-13 10:31 | XMS_ITS | Encounter Summary ---
Author Organization [email or web address] Address [address] [facility] 7t [place] [address] Care Team Providers Care Value Analysis Coordinator Name Role Phone Ingris Johnson DO Primary Care Provider [phone] Reason for Visit * Reason Onset Date Comments Lab Results 03/12/2025 Encounter Details Date Type Department Care Team (Late st Contact Info) Description 03/12/2025 Telephone [place] [facility] MED[facility] [address] [place] [address] Ingris Johnson DO [address] [place] [address] Lab Results Social History Tobacco Use Types Packs/Day Years Used Date Smoking Tobacco: Never Passive Smoke Exposure: Never Smokeless Tobacco: Never Alcohol Use Standard [...] technical, or vocational program 07/08/2024 Comments No Sex and Gender Information Value Date Recorded Sex Assigned at Female 02/09/2022 2:22 PM EDT Legal Sex Female 8:37 PM EDT Gender Identity Female 05/13/2022 9:25 AM EST Sexual Orientation Choose not to disclose 2022 2:57 PM EST Occupation Industry Job Start Date Job End Date Not on file Not on file Not on file Not on file documented as of this encounter Miscellaneous Notes * Telephone Encounter - Linda Soni LPN - 03/12/2025 3:30 PM EST Spoke with pt. Reviewed Dr Johnson's message. Pt indicates understanding. She will return to the lab next week. * Telephone Encounter - Mary Ann Lau - 03/12/2025 3:11 PM EST Patient called Please call back * Telephone Encounter - Linda Soni LPN - 03/12/2025 2:31 PM EST Left message for pt to call back. * Telephone Encounter - Ingris Johnson DO - 03/12/2025 2:18 PM EST Lab results overall normal. Bleeding profile normal, liver/kidneys/thyroid normal. Slightly high lymphocyte percentage but total number of lymphocytes was normal - doubt any clinical significance I would suggest testing for von willebrand factor as this can cause excessive bleeding * Telephone Encounter - Linda Soin LPN - 03/12/2025 9:45 AM EST Please review and advise. * Telephone Encounter - Mary Ann Lau - 03/12/2025 9:27 AM EST Patient called Patient would like a call back to discuss her recent lab results documented in this encounter Plan of Treatment Upcoming Encounters Date Type Department Care Team (Late st Contact Info) Description 03/24/2025 8:30 AM EST Office Visit [place] [facility] D[facility] [address] [place] [address] Aletha Haddad Scheduled Orders Name Type Priority Associated Diagnoses Orde r Schedule von Willebrand Panel Lab Routine Abnormal uterine bleeding (AUB) Expected: 03/12/2025 (Approximate), Expires: 03/12/2026 documented as of this encounter Visit Diagnoses Diagnosis Abnormal uterine bleeding (AUB)- Primary documented in this encounter Care Teams Value Analysis Coordinator Relationship Specialty Start Date End Date Ingris Johnson DO [address] [place] [address] PCP - General Family Medicine 01/08/24 documented as of this encounter
--- OUTSIDE RECORDS SUMMARY | 2025-03-13 10:31 | XMS_ITS | Encounter Summary ---
Author Organization [facility] Address [address] [place] [address] [place] [address] Phone Care Team Providers Care Compressor Assembler Name Role Phone Alec Mayuri Sandra TIMMONS Primary Care Provider + Mayuri Michael ASSISTANT EDUCATION DIRECTOR Unavailable [phone] Tai Garcia MD Unavailable Barak Cheema DPM Unavailable Unavailable Fallon Portillo Primary Care Provider [phone] Yisel Boles MD Unavailable [phone] Ingris Johnson DO Primary Care Provider [phone] Ingris Johnson DO Primary Care Provider [phone] Encounter Details Date Type Department Care Team (Latest Contact Info) Description 02/11/2019 Ancillary Orders [facility] Rheumatology [address] [place] [address] Susanna Hyatt MD [address] [facility], [address] [place] [address] [email or web address] Chronic pain in right foot; Inflammatory [...] Pulmonary, Allergy and Critical Care Medicine 10 [facility] [place] [address] Isha Porter MD [address] [address] documented as of this encounter Results * [...] documented as of this encounter Care Teams Compressor Assembler Relationship Specialty Start Date End Date Mayuri Michael CNP [address] [place] [address] [email or web address] PCP - General 01/24/17 09/01/22 Fallon Portillo PA [address] [place] [address] [email or web address] PCP - General Physician Phone Triage Specialist 09/02/22 05/01/24 Ingris Johnson DO [address] [place] [address] [email or web address] PCP - General Family Medicine 05/02/24 10/07/24 Ingris Johnson DO [address] [place] [address] PCP - General Family Medicine 10/08/24 Mayuri Michael CNP [address] [place] [address] [email or web address] Historical LMR Provider 01/26/1704/17 Tai Garcia MD [address] [place] [address] Historical LMR Provider 01/26/17 Barak Cheema DPM [address] [place] [address] Historical LMR Provider 01/26/1704/17/21 Yisel Boles MD [address] [place] [address] [email or web address] Insurance Assigned Provider 07/15/23 03/20/24 documented as of this encounter Additional Source Comments The information contained in this document represents components of the legal health record. It is not the complete legal health record.[facility]
--- OUTSIDE RECORDS SUMMARY | 2025-03-13 10:31 | XMS_ITS | Encounter Summary ---
Author Organization [employer] Address 75 [facility] 7t [place] [address] Care Team Providers Care Wire Drawing Die Maker Name Role Phone Ingris Johnson DO Primary Care Provider [phone] Encounter Details Date Type Department Care Team (Latest Contact Info) Description 02/13/2025 Results [facility]-Up [facility] MEDICAL [address] [place] [address] Ingrsi Johnson DO [address] [place] [address] US Pelvis Transvaginal Social History Tobacco Use Types Packs/Day Years [...] on file documented as of this encounter Plan of Treatment Upcoming Encounters Date Type Department Care Team (Late st Contact Info) Description 03/24/2025 8:30 AM EST Office Visit [place] [facility] DENTAL [address] [place] [address] Aletha Haddad documented as of this encounter Visit Diagnoses Not on filedocumented in this encounter Care Teams Wire Drawing Die Maker Relationship Specialty Start Date End Date Ingris Johnson DO [address] [place] [address] PCP - General Family Medicine 01/08/24 documented as of this encounter
--- OUTSIDE RECORDS SUMMARY | 2025-03-13 10:31 | XMS_ITS | Encounter Summary ---
Author Organization [facility] Address [address] [place] [address] Phone Care Team Providers Care Kitchen And Bath Designer Name Role Phone Fallon Portillo Primary Care Provider [phone] Yisel Boles MD Unavailable [phone] Ingris Johnson DO Primary Care Provider [phone] Ingris Johnson DO Primary Care Provider [phone] Encounter Details Date Type Department Care Team (Late st Contact Info) Description 01/30/2024 Ancillary Orders [facility], [address] [address] Tai Bang, JOHN PAUL [address] [place] [address] Chronic cough (Primary Dx) Social History Tobacco [...] CD Pulmonary, Allergy and Critical Care Medicine [address] [place] [address] Isha Porter MD [address] [place] [address] documented as of this encounter Results * [...] skeletal abnormality. IMPRESSION: Normal chest. Tai Bang HUNTER IMG XR CHEST Final Result documented in this encounter Visit Diagnoses Diagnosis Chronic cough- Primary Cough Chronic cough Cough documented in this encounter Care Teams Kitchen And Bath Designer Relationship Specialty Start Date End Date Fallon Portillo PA [email or web address] PCP - General Physician Loom Fixer Supervisor 09/02/22 05/01/24 Ingris Johnson DO [address] [place] [address] [email or web address] PCP - General Family Medicine 05/02/24 10/07/24 Ingris Johnson DO [address] [place] [address] PCP - General Family Medicine 10/08/24 Yisel Boles MD [address] [place] [address] [email or web address] Insurance Assigned Provider 07/15/23 03/20/24 documented as of this encounter Additional Source Comments The information contained in this document represents components of the legal health record. It is not the complete legal health record.[facility]
--- OUTSIDE RECORDS SUMMARY | 2025-03-13 10:31 | XMS_ITS | Encounter Summary ---
Author Organization [employer] Address [address] [place] [address] 7t [place] [address] Care Team Providers Care Pad Tufter Name Role Phone Fallon Portillo PA-C Primary Care Provider Ingris Tejeda DO Primary Care Provider [phone] Encounter Details Date Type Department Care Team (Late st Contact Info) Description 04/19/2023 Orders Only [facility] [address] [place] [address] Fallon Portillo PA-C Social History Tobacco Use [...] Description 03/24/2025 8:30 AM EST Office Visit [facility] DENTAL [address] [place] [address] Aletha Haddad documented as of this encounter [...] on filedocumented in this encounter Care Teams Pad Tufter Relationship Specialty Start Date End Date Fallon Portillo PA-C PCP - General Family Medicine 06/20/22 01/07/24 Ingris Johnson DO [address] [place] [address] PCP - General Family Medicine 01/08/24 documented as of this encounter
--- OUTSIDE RECORDS SUMMARY | 2025-03-13 10:31 | XMS_ITS | Encounter Summary ---
Author Organization [facility] Address [address] [facility] [address] [place] [address] Phone Care Team Providers Care Director Of Strategic Partnerships Name Role Phone Fallon Portillo Primary Care Provider [phone] Yisel Boles MD Unavailable [phone] Ingris Johnson DO Primary Care Provider [phone] Ingris Johnson DO Primary Care Provider [phone] Encounter Details Date Type Department Care Team (Late st Contact Info) Description 04/13/2023 Ancillary Orders [facility], [address] [address] Fallon Portillo PA [address] [place] [address]. [place] [address] [email or web address] Acute pain of right knee (Primary [...] Pulmonary, Allergy and Critical Care Medicine 10 [facility] [place] [address] Isha Porter MD 10 [facility] 2nd [place] [address] documented as of this encounter Results * [...] clinician's provided indication for this examination in [facility] [place]: Pain COMPARISON: XR KNEE STANDING (BILATERAL, SINGLE VIEW ONLY) FINDINGS: No acute fracture or dislocation. Mild medial compartment marginal spurring. Joint spaces preserved. No joint effusion. Procedure Note Nelsy Cordero MD - 04/16/2023 XR KNEE 4 OR MORE VIEWS (RIGHT) Referring clinician's provided indication for this examination in [facility] [place]:Pain COMPARISON: XR KNEE STANDING (BILATERAL, SINGLE VIEW [...] documented as of this encounter Care Teams Director Of Strategic Partnerships Relationship Specialty Start Date End Date Fallon Portillo PA [email or web address] PCP - General Physician Public Relations 09/02/22 05/01/24 Ingris Johnson DO [address] [place] [address] [email or web address] PCP - General Family Medicine 05/02/24 10/07/24 Ingris Johnson DO [address] [place] [address] PCP - General Family Medicine 10/08/24 Yisel Boles MD [address] [place] [address] [email or web address] Insurance Assigned Provider 07/15/23 03/20/24 documented as of this encounter Additional Source Comments The information contained in this document represents components of the legal health record. It is not the complete legal health record.[facility]
--- OUTSIDE RECORDS SUMMARY | 2025-03-13 10:31 | XMS_ITS | Encounter Summary ---
Author Organization [facility] Address [address] [place] [address] Phone Care Team Providers Care Draw Fire Operator Name Role Phone Alec Mayurikat Flores CNP Primary Care Provider + Mayuri Michael STALLION MANAGER Unavailable [phone] Tai Garcia MD Unavailable [phone] Barak Cheema DPM Unavailable Unavailable Fallon Portillo Primary Care Provider [phone] Yisel Boles MD Unavailable [phone] Ingris Johnson DO Primary Care Provider [phone] Ingris Johnson DO Primary Care Provider [phone] Encounter Details Date Type Department Care Team (Late st Contact Info) Description 08/17/2020 Ancillary Orders Virtual Department [address] [place] [address] Britany Mcnair MD [address] [place] [address] [email or web address] Breast pain, left Social History Tobacco [...] CD Pulmonary, Allergy and Critical Care Medicine [address] [place] [address] [place] [address] Isha Porter MD [address] [place] [address] documented as of this encounter Results * [...] documented as of this encounter Care Teams Draw Fire Operator Relationship Specialty Start Date End Date Mayuri Michael CNP [address] [place] [address] [email or web address] PCP - General 01/24/17 09/01/22 Fallon Portillo PA [address] [place] [address] [email or web address] PCP - General Physician Fine Grader 09/02/22 05/01/24 Ingris Johnson DO [address] [place] [address] [email or web address] PCP - General Family Medicine 05/02/24 10/07/24 Ingris Johnson DO [address] [place] [address] PCP - General Family Medicine 10/08/24 Mayuri Michael CNP [address] [place] [address] [email or web address] Historical LMR Provider 01/26/1704/17 Tai Garcia MD [address] [place] [address] [place] [address] Historical LMR Provider 01/26/17 Barak Cheema DPM [address] [place] [address] Historical LMR Provider 01/26/1704/17/21 Yisel Boles MD [address] [place] [address] [email or web address] Insurance Assigned Provider 07/15/23 03/20/24 documented as of this encounter Additional Source Comments The information contained in this document represents components of the legal health record. It is not the complete legal health record.[facility]
--- OUTSIDE RECORDS SUMMARY | 2025-03-13 10:31 | XMS_ITS | Encounter Summary ---
Author Organization [employer] Address [address] [facility] [address] 7t [place] [address] Care Team Providers Care Motor Vehicle Clerk Name Role Phone Fallon Portillo PA-C Primary Care Provider Ingris Tejeda DO Primary Care Provider [phone] Encounter Details Date Type Department Care Team (Late st Contact Info) Description 08/28/2023 Orders Only [facility] [address] [place] [address] Fallon Portillo PA-C Social History Tobacco Use Types Packs/Day Years Used Date Smoking Tobacco: Never Smokeless Tobacco: Never Alcohol Use Standard Drinks/Week Comments Yes 0 (1 standard drink = 0.6 oz pur e alcohol) Occasionally Housing Stability Answer Date Recorded What is your housing situation today? I have nazanni briggs 08/21/[address] you [...] 03/24/2025 8:30 AM EST Office Visit [place] [facility] DENTAL [address] [place] [address] Aletha Haddad documented as of this encounter [...] on filedocumented in this encounter Care Teams Motor Vehicle Clerk Relationship Specialty Start Date End Date Fallon Portillo PA-C PCP - General Family Medicine 06/20/22 01/07/24 Ingris Johnson DO [address] [place] [address] PCP - General Family Medicine 01/08/24 documented as of this encounter
--- OUTSIDE RECORDS SUMMARY | 2025-03-13 10:31 | XMS_ITS | Encounter Summary ---
Author Organization [employer] Address 75 [facility] 7t [place] [address] Care Team Providers Care Water Treatment Plant Engineer Name Role Phone Fallon Portillo PA-C Primary Care Provider Unav ailable Ingris Johnson DO Primary Care Provider [phone] Encounter Details Date Type Department Care Team [...] Description 03/24/2025 8:30 AM EST Office Visit [facility] DENTAL [address] [place] [address] Aletha Haddad documented as of this encounter Visit Diagnoses Not on filedocumented in this encounter Care Teams Water Treatment Plant Engineer Relationship Specialty Start Date End Date Fallon Portillo PA-C PCP - General Family Medicine 06/20/22 01/07/24 Ingris Johnson DO [address] [place] [address] PCP - General Family Medicine 01/08/24 documented as of this encounter
--- OUTSIDE RECORDS SUMMARY | 2025-03-13 10:31 | XMS_ITS | Encounter Summary ---
Author Organization [employer] Address 75 [facility] 7t [place] [address] Care Team Providers Care Nailer Operator Name Role Phone Fallon Portillo PA-C Primary Care Provider Unav ailable Ingris Johnson DO Primary Care Provider [phone] Encounter Details Date Type Department Care Team [...] Description 03/24/2025 8:30 AM EST Office Visit [facility] DENTAL [address] [place] [address] Aletha Haddad documented as of this encounter Visit Diagnoses Not on filedocumented in this encounter Care Teams Nailer Operator Relationship Specialty Start Date End Date Fallon Portillo PA-C PCP - General Family Medicine 06/20/22 01/07/24 Ingris Johnson DO [address] [place] [address] PCP - General Family Medicine 01/08/24 documented as of this encounter
--- OUTSIDE RECORDS SUMMARY | 2025-03-13 10:31 | XMS_ITS | Encounter Summary ---
Author Organization [facility] Address [address] [place] [address] [place] [address] Phone Care Team Providers Care Service Operator Name Role Phone Fallon Portillo Primary Care Provider [phone] Yisel Boles MD Unavailable [phone] Ingris Johnson DO Primary Care Provider [phone] Ingris Johnson DO Primary Care Provider [phone] Reason for Referral * MRI/CAT Scan - Closed Specialty Diagnoses / Procedures Referred By Contemilia t Referred To Contact Radiology Diagnoses Acute pain of right knee Procedures MRI Knee (Right) CHG MRI LOWER EXTREM JT, W/O CONTRAST CHG MRI, JOINT OF LEG W/CONTRAST CHG MRI, JOINT OF LEG. Fallon Morton PA [address] [facility] [place] [address] Phone: tel: fax: [email or web address]:[email or web address] Referral ID Status Reason Start Date Expiration Date Visits Re quested Visits Authorized [id number] Closed 05/22/2023 06/21/2023 1 1 Encounter Details Date Type Department Care Team (Latest Contact Info) Description 04/25/2023 Transcribe Orders [facility] Department [address] [place], [place] [id number] Fallon Portillo PA [address] [facility] [place] [address] [email or web address] Acute pain of right knee [...] Pulmonary, Allergy and Critical Care Medicine [address] [place] [address] Isha Porter MD [address] [place] [address] documented as of this encounter Results * [...] communicated on 05/22/2023 5:36 PM, Message ID [id number]. Narrative 05/22/2023 5:36 PM EST MRI KNEE WITHOUT CONTRAST (RIGHT) Referring clinician's provided indication for this examination in Epic: Outside Radiology Order; ACUTE RIGHT KNEE PAIN [...] was communicated on 05/22/2023 5:36 PM,Message ID [id number]. Fallon SHEPHERD IM MR EXTREMITY Final Result documented in this encounter Visit Diagnoses Diagnosis Acute pain of right knee- Primary Acute pain of right knee documented in this encounter Additional Health Concerns Infection Onset Date Last Indicated Resolved Time CoV-Risk 05/25/2023 05/25/2023 06/05/2023 1:24 AM EST documented as of this encounter Care Teams Service Operator Relationship Specialty Start Date End Date Fallon Portillo PA [email or web address] PCP - General Physician Economics Teacher 09/02/22 05/01/24 Ingris Johnson DO [address] [place] [address] PCP - General Family Medicine 05/02/24 10/07/24 Ingris Johnson DO [address] [place] [address] PCP - General Family Medicine 10/08/24 Yisel Boles MD [address] [place] [address] Insurance Assigned Provider 07/15/23 03/20/24 documented as of this encounter Additional Source Comments The information contained in this document represents components of the legal health record. It is not the complete legal health record.[facility]
--- OUTSIDE RECORDS SUMMARY | 2025-03-13 10:31 | XMS_ITS | Encounter Summary ---
Author Organization [facility] Address [address] [place] [address] [place] [address] Phone Care Team Providers Care Legal Editor Name Role Phone Alec Mayurikat Flores CNP Primary Care Provider + Mayuri Michael HAND BUNCH MAKER Unavailable [phone] Tai Garcia MD Unavailable [phone] Barak Cheema DPM Unavailable Unavailable Fallon Portillo Primary Care Provider Yisel Boles MD Unavailable [phone] Ingris Johnson DO Primary Care Provider [phone] Ingris Johnson DO Primary Care Provider [phone] Encounter Details Date Type Department Care Team (Latest Contact Info) Description 09/23/2020 Ancillary Orders [facility] [address], [address], [address] [place] [address] Crystal Neely MD 55 [facility] [address] [place] [address] [email or web address] Chronic pain of both knees Social [...] Pulmonary, Allergy and Critical Care Medicine 10 [facility] [place] [address] Isha Porter MD 10 [facility] 2nd [place] [address] [email or web address] documented as of this encounter Results * [...] documented as of this encounter Care Teams Legal Editor Relationship Specialty Start Date End Date Mayuri Michael CNP [address] [place] [address] [email or web address] PCP - General 01/24/17 09/01/22 Fallon Portillo PA [address] [place] [address] [email or web address] PCP - General Physician Exhaust And Muffler Fitter 09/02/22 05/01/24 Ingris Johnson DO [address] [place] [address] [email or web address] PCP - General Family Medicine 05/02/24 10/07/24 Ingris Johnson DO [address] [place] [address] PCP - General Family Medicine 10/08/24 Mayuri Michael CNP [address] [place] [address] [email or web address] Historical LMR Provider 01/26/1704/17 Tai Garcia MD [address] [place] [address] Historical LMR Provider 01/26/17 Barak Cheema DPM [address] [place] [address] Historical LMR Provider 01/26/1704/17/21 Yisel Boles MD [address] [place] [address] [email or web address] Insurance Assigned Provider 07/15/23 03/20/24 documented as of this encounter Additional Source Comments The information contained in this document represents components of the legal health record. It is not the complete legal health record.[facility]
--- OUTSIDE RECORDS SUMMARY | 2025-03-13 10:31 | XMS_ITS | Encounter Summary ---
Author Organization [employer] Address [address] [facility] [address] 7[address] [place] [address] Care Team Providers Care Auto Service Mechanic Name Role Phone AlexIngris Primary Care Provider [phone] Encounter Details Date Type Department Care Team (Late st Contact Info) Description 01/31/2024 Orders Only [facility] [address] [place] [address] Tai Bang NP [address] [place] [address] Social History Tobacco Use Types Packs/Day Years [...] Description 03/24/2025 8:30 AM EST Office Visit [facility] [address] [place] [address] Aletha Haddad documented as of this encounter Procedures Procedure Name Priority Date/Time Associated Diagnosis Comments PULMONARY FUNCTION TESTING Routine 06/30/2021 9:04 AM EDT documented in this encounter Results * Pulmonary function testing (06/30/2021 9:04 AM EDT) us Tai Bang STAINING MACHINE OPERATOR PFT ORDERABLES Final Result documented in this encounter Visit Diagnoses Not on filedocumented in this encounter Care Teams Auto Service Mechanic Relationship Specialty Start Date End Date Ingris Johnson DO [address] [place] [address] PCP - General Family Medicine 01/08/24 documented as of this encounter
--- OUTSIDE RECORDS SUMMARY | 2025-03-13 10:31 | XMS_ITS | Encounter Summary ---
Author Organization [facility] Address [address] [place] [address] Phone Care Team Providers Care Pre Sales Systems Engineer Name Role Phone Fallon Potrillo Primary Care Provider [phone] Yisel Boles MD Unavailable [phone] Ingris Johnson DO Primary Care Provider [phone] Ingris Johnson DO Primary Care Provider [phone] Encounter Details Date Type Department Care Team (Late st Contact Info) Description 04/25/2023 Procedure Pass [facility], [address] [address] Social History Tobacco Use Types Packs/Day Years [...] Critical Care Medicine [address] [place] [address] [place] [address] Isha Porter MD 10 [facility] 2nd [place] [address] [email or web address] documented as of this encounter Visit Diagnoses Not on filedocumented in this encounter Additional Health Concerns Infection Onset Date Last Indicated Resolved Time CoV-Risk 05/25/2023 05/25/2023 06/05/2023 1:24 AM EST documented as of this encounter Care Teams Pre Sales Systems Engineer Relationship Specialty Start Date End Date Fallon Portillo PA PCP - General Physician Supervisor Testing 09/02/22 05/01/24 Ingris Johnson DO [address] [place] [address] PCP - General Family Medicine 05/02/24 10/07/24 Ingris Johnson DO [address] [place] [address] PCP - General Family Medicine 10/08/24 Yisel Boles MD [address] [place] [address] [email or web address] Insurance Assigned Provider 07/15/23 03/20/24 documented as of this encounter Additional Source Comments The information contained in this document represents components of the legal health record. It is not the complete legal health record.[facility]
--- OUTSIDE RECORDS SUMMARY | 2025-03-13 10:31 | XMS_ITS | Encounter Summary ---
Author Organization [employer] Address [address] [facility] 7t [place] [address] Care Team Providers Care Uniform Cap Operator Name Role Phone Fallon Portillo PA-C Primary Care Provider Ingris Tejeda DO Primary Care Provider [phone] Encounter Details Date Type Department Care Team (Late st Contact Info) Description 05/23/2023 Orders Only [facility] MEDICAL [address] [place] [address] Fallon Portillo PA-C Acute pain of right [...] 03/24/2025 8:30 AM EST Office Visit [facility] DENTAL [address] [place] [address] Aletha Haddad documented as of this encounter [...] knee documented in this encounter Care Teams Uniform Cap Operator Relationship Specialty Start Date End Date Fallon Portillo PA-C PCP - General Family Medicine 06/20/22 01/07/24 Ingris Johnson DO [address] [place] [address] PCP - General Family Medicine 01/08/24 documented as of this encounter
--- OUTSIDE RECORDS SUMMARY | 2025-03-13 10:31 | XMS_ITS | Encounter Summary ---
Author Organization [facility] Address [address] [place] [id number] Phone Care Team Providers Care Filter Tender Name Role Phone Mayuri Michael CNP Primary Care Provider + Mayuri Michael URBAN DESIGN CONSULTANT Unavailable [phone] Tai Garcia MD Unavailable [phone] Barak Cheema DPM Unavailable Unavailable Fallon Portillo Primary Care Provider [phone] Yisel Boles MD Unavailable [phone] Ingris Johnson DO Primary Care Provider [phone] Ingris Johnson DO Primary Care Provider [phone] Encounter Details Date Type Department Care Team (Late st Contact Info) Description 08/17/2020 Procedure Pass [facility] - [address] [place] [address] Social History Tobacco Use Types Packs/Day Years [...] Pulmonary, Allergy and Critical Care Medicine [address] [place] [address] Isha Porter MD 10 [facility] 2nd [place] [address] [email or web address] documented as of this encounter Visit Diagnoses Not on filedocumented in this encounter Additional Health Concerns Infection Onset Date Last Indicated Resolved Time CoV-Exposed Comment:Recent close contact documented in the Travel/Symptom Screening Form 04/10/2021 04/25/2021 1:[address] CoV-Risk 05/25/2023 05/25/2023 06/05/2023 1:24 AM EST documented as of this encounter Care Teams Filter Tender Relationship Specialty Start Date End Date Mayuri Michael CNP [address] [place] [address] [email or web address] PCP - General 01/24/17 09/01/22 Fallon Portillo PA [address] [place] [address] [place] [address] [email or web address] PCP - General Physician Rate Clerk Passenger 09/02/22 05/01/24 Ingris Johnson DO [address] [place] [address] [email or web address] PCP - General Family Medicine 05/02/24 10/07/24 Ingris Johnson DO [address] [place] [address] PCP - General Family Medicine 10/08/24 Mayuri Michael CNP [address] [place] [address] [email or web address] Historical LMR Provider 01/26/1704/17 Tai Garcia MD [address] [place] [address] Historical LMR Provider 01/26/17 Barak Cheema DPM [address] [place] [address] [place] [address] Historical LMR Provider 01/26/1704/17/21 Yisel Boles MD [address] [place] [address] [email or web address] Insurance Assigned Provider 07/15/23 03/20/24 documented as of this encounter Additional Source Comments The information contained in this document represents components of the legal health record. It is not the complete legal health record.[facility]
--- OUTSIDE RECORDS SUMMARY | 2025-03-13 10:31 | XMS_ITS | Encounter Summary ---
Author Organization [facility] Address [address] [place] [address] Phone Care Team Providers Care Parlor Maid Name Role Phone Mayuri Michael CNP Primary Care Provider + Mayuri Michael DIRECTOR OF CLINICAL TRIALS Unavailable [phone] Tai Garcia MD Unavailable [phone] Barak Cheema DPM Unavailable Unavailable Fallon Portillo Primary Care Provider [phone] Yisel Boles MD Unavailable [phone] Ingris Johnson DO Primary Care Provider [phone] Ingris Johnson DO Primary Care Provider [phone] Encounter Details Date Type Department Care Team (Late st Contact Info) Description 08/17/2020 Procedure Pass [facility] - [address] [place] [address] Social History Tobacco Use Types Packs/Day Years [...] Pulmonary, Allergy and Critical Care Medicine 10 [place] [address] Isha Porter MD 10 [facility] 2nd [place] [address] [email or web address] documented as of this encounter Visit Diagnoses Not on filedocumented in this encounter Additional Health Concerns Infection Onset Date Last Indicated Resolved Time CoV-Exposed Comment:Recent close contact documented in the Travel/Symptom Screening Form 04/10/2021 04/25/2021 1:[address] CoV-Risk 05/25/2023 05/25/2023 06/05/2023 1:24 AM EST documented as of this encounter Care Teams Parlor Maid Relationship Specialty Start Date End Date Mayuri Michael CNP [address] [place] [address] [email or web address] PCP - General 01/24/17 09/01/22 Fallon Portilol PA [address] [place] [address] [place] [address] [email or web address] PCP - General Physician Manager Lab 09/02/22 05/01/24 Ingris Johnson DO [address] [place] [address] [email or web address] PCP - General Family Medicine 05/02/24 10/07/24 Ingris Johnson DO [address] [place] [address] PCP - General Family Medicine 10/08/24 Mayuri Michael CNP [address] [place] [address] [email or web address] Historical LMR Provider 01/26/1704/17 Tai Garcia MD [address] [place] [address] Historical LMR Provider 01/26/17 Barak Cheema DPM [address] [place] [address] [place] [address] Historical LMR Provider 01/26/1704/17/21 Yisel Boles MD [address] [place] [address] [email or web address] Insurance Assigned Provider 07/15/23 03/20/24 documented as of this encounter Additional Source Comments The information contained in this document represents components of the legal health record. It is not the complete legal health record.[facility]
== END 2025-03-13 09:22 | disposition home or self-care (01) ==
LOC: HO.LAB 09:21
PROVIDERS: PCP Family Medicine; Visit Provider Family Medicine
DX: N93.9 Abnormal uterine and vaginal bleeding, unspecified (principal)
CPT/HCPCS: 36415; 85246

== ENCOUNTER 2025-04-08 11:10 | Outpatient (REF) | payer OTHER, SELFPAY ==
[2025-04-08 12:43] LABS: Hematocrit 39.8 % (37.0-47.0); Hemoglobin 13.4 g/dl (12.0-16.0); Mean Corpuscular HGB Conc 33.7 g/dl (31.0-35.0); Mean Corpuscular Hemoglobin 30.6 pg (27.0-33.0); Mean Corpuscular Volume 90.9 fL (80.0-98.0); NRBC Abs Auto 0.000 X10*3/uL (0.0-0.012); NRBC Pct Auto 0.0 /100WBC (0.0-0.2); Platelet Count 249 X10*3/uL (160-400); Red Blood Count 4.38 X10*6/uL (4.20-5.50); White Blood Count 6.4 X10*3/uL (4.8-10.8)
[2025-04-08 16:39] LABS: CT PCR NOT DETECTED (Not Detect.); NG PCR NOT DETECTED (Not Detect.)
== END 2025-04-08 11:11 | disposition home or self-care (01) ==
LOC: HO.LAB 11:10
PROVIDERS: PCP Family Medicine; Visit Provider Obstetrics & Gynecology
DX: N93.9 Abnormal uterine and vaginal bleeding, unspecified (principal); Z20.2 Contact with and (suspected) exposure to infections with a predominantly sexual mode of transmission; Z13.21 Encounter for screening for nutritional disorder; Z13.29 Encounter for screening for other suspected endocrine disorder
CPT/HCPCS: 84443; 84702; 85027; 87491; 87591; 87626; 88175; 88305

== ENCOUNTER 2025-04-08 11:10 | Outpatient (AMB) | payer OTHER, SELFPAY ==
[2025-04-08 11:25] VITALS: BP 110/68; BMI 25.0
--- NOTE | 2025-04-08 11:25 | A.OFFVIS_ITS ---
Vital Signs 04/08/25 11:25 Height 5 ft 6 in Weight 155 lb BMI 25.0 BP 110/68 Intake Visit Reasons: Abnormal uterine bleeding/ EMB? Loss Prevention And Safety Manager Required: No Information Interpreted: non-clinical & clinical Destination Sign Repairer: Destination Sign Repairer Present (Vidya Sapp EMMANUEL) Accompanied by: Self / Same As Patient Allergies fluticasone (From FLONASE) Allergy (Unknown, Verified 04/08/25 11:40) BLOODY NOSE latex (LATEX) Allergy (Unknown, Verified 04/08/25 11:40) rash, hives oxycodone (OXYCODONE) Allergy (Unknown, Verified 04/08/25 11:40) RASH Penicillins (PENICILLINS) Allergy (Unknown, Verified 04/08/25 11:40) RXN INFANT - WENT TO pine nut (PINE NUT) Allergy (Unknown, Verified 04/08/25 11:40) HIVES vancomycin (VANCOMYCIN) Allergy (Unknown, Verified 04/08/25 11:40) RASH Is last menstrual period known: Yes Last menstrual period: 03/04/25 HPI Comments Details: Presenting complaining of irregular menstrual cycle over the last few months 02/01 pelvic ultrasound showed the following: Uterus 8.8 x 3.9 x 4.3 cm. Endometrium 5 mm. No significant free fluid noted. Right ovary 4.4 x 2.7 x 2.9 cm. 2.3 cm cyst with internal echoes. Complex 1.5 cm follicle also noted. Recommend follow-up ultrasound 1-2 months. Left ovary 3.2 x 1.7 x 1.9 cm. 1.8 cm dominant follicle. Impression: Complex right ovarian cyst and follicles Recommend follow-up 1-2 months [facility] Medical History Arthritis IBS (irritable bowel syndrome) Asthma Surgical History H/O foot surgery Family History Mother Endometrial cancer Brother Asthma Social History Household Members: Significant Other Housing: Apartment Alcohol intake: current Alcohol intake frequency: holidays/special occasions only Patient Tobacco Use Status: Never used Tobacco Use of substances other than those prescribed or required for medical reasons: No Current occupational status: employed Current occupation: Cafeteria at [employer] Sexually active: Yes Sexual orientation: Straight/Heterosexual Gender identity: Female Female Reproductive History Menstrual Age of Menarche: 12 Duration of menses: 6-7 days Date of last menstrual period: 03/04/25 control method: none Total pregnancies: 0 Review of Systems Const All systems reviewed & are unremarkable except as noted in HPI and below Card Reports as per HPI Resp Reports as per HPI GI Reports as per HPI and Reports no additional complaints Reports as per HPI Physical Exam Vital Signs: Last Vital Signs BP 110/68 04/08/25 11:25 BMI result Body Mass Index 25.0 Const General: cooperative, healthy appearing and comfortable Chest Chest palpation & inspection: normal inspection of the chest and normal palpation of entire chest wall Breast/axilla inspection: normal inspection of the breasts and normal inspection of the axillae Breast/axilla palpation: normal palpation of the breasts, normal palpation of the axillae and no axillary lymphadenopathy Resp Effort & Inspection: normal respiratory effort Auscultation: clear to auscultation bilaterally Percussion: percussion normal Cardio Palpation: normal PMI Rate: regular rate Rhythm: regular rhythm Heart sounds: no murmurs and no rubs Peripheral pulses: Peripheral pulses 2+ throughout GI Inspection: Yes normal to inspection Palpation (GI): Soft to palpation, nontender, no guarding, not rigid and No hepatosplenomegaly present Percussion: Yes normal to percussion Auscultation: normal bowel sounds Rectal Exam - Female: deferred General: Yes bladder normal to palpation External Female Exam: No lesion Speculum Exam - Vagina: normal appearance of the vagina, normal palpation, normal vaginal discharge and not erythematous Speculum Exam - Cervix: normal appearance of the cervix and normal palpation Bimanual exam- vagina & uterus: normal bimanual exam, normal palpation, uterine size normal, bladder normal to palpation, consistency normal and normal palpation Bimanual Exam- Adnexa, other: normal adnexae, no masses and no tenderness Office Procedures Endometrial Biopsy Details: The patient was counseled regarding the indication and benefits of endometrial sampling to rule out endometrial pathology including not limited to endometrial hyperplasia or endometrial cancer and others; The alternatives (Either do nothing vs. hysteroscopy D&C) & the risks were discussed with the patient including but not limited: pain, uterine perforation, bleeding, infection, possible injury to bladder, bowel, ureter, possible need for blood transfusion with all its possible risks. The patient verbalized understanding all questions answered and signed consent. Urine test done in the office was negative The patient was placed into the dorsal lithotomy position; a speculum was inserted in the vagina. Using aseptic technique for the procedure, the cervix was cleansed with Betadine. The anterior lip of the cervix was grasped with a single tooth tenaculum. The uterus was sounded to 7 cm with a 4 mm Pipelle was used. Tissues samples were obtained and placed in formalin, in a patient labeled container and sent to the pathology department. At the end of the procedure, there was minimal bleeding noted The patient tolerated the procedure well and was discharged in good condition with the following instructions: Nothing in the vagina until the bleeding stops. No sex until the bleeding stops, to call if any of the following occurs: fever (>100.4), flu-like symptoms, abdominal pain, heavy bleeding, four smelling vaginal discharge. The patient was instructed to schedule a Follow up appointment in 2 weeks to discuss pathology results of the biopsy and treatment options. This note was generated with a voice recognition program. Some errors may have been overlooked during the review of this note. Sometimes these errors may affect the content or meaning of a given sentence. [id number] Biopsy Assessment & Plan Assessment & Plan (1) Abnormal uterine bleeding (AUB): Code(s): N93.9 - Abnormal uterine and vaginal bleeding, unspecified Category: Medical Plan: Co testing done, GC and chlamydia taken CBC, TSH, HCG, and pelvic ultrasound ordered. Discussed with the patient the different causes of abnormal bleeding including thyroid disorders, uterine and ovarian pathology, endometrial hyperplasia, carcinoma and other potential causes. Discussed with the patient the work up including CBC (to r/o anemia), TSH, pelvic Ultrasound, endometrial biopsy to r/o endometrial pathology. EMB done, see procedure note. All questions answered and the patient verbalized understanding. Instructed the patient to schedule a follow-up appointment in 2 weeks. (2) Complex ovarian cyst: Code(s): N83.299 - Other ovarian cyst, unspecified side Category: Medical Plan: Discussed with the patient the complex ovarian cyst by ultrasound. Discussed with the patient the Ultrasound findings, the main limitation of transvaginal ultrasonography alone as a diagnostic tool to distinguish benign from malignant masses relates to its lack of specificity and low positive predictive value for cancer. The differential diagnosis discussed with the patient includes the following but not limited to: benign and malignant gynecological and non-gynecological causes. Since ultrasound was done 2 months ago, recommended repeat ultrasound anaid. Instructions given the patient to schedule a follow-up ultrasound appointment. All questions were answered & the patient verbalized understanding and agreed with the plan. Orders: Orders Complete Blood Count no Diff Today N93.9 - Abnormal uterine and vaginal bleeding, unspecified TSH reflex Free T4 Today N93.9 - Abnormal uterine and vaginal bleeding, unspecified HCG Quantitative Today N93.9 - Abnormal uterine and vaginal bleeding, unspecified US pelvic and transvaginal Today N93.9 - Abnormal uterine and vaginal bleeding, unspecified AMB Endometrial Biopsy Today N93.9 - Abnormal uterine and vaginal bleeding, unspecified Coding Level of Care Code New Pt Level 3 (92312) Diagnoses Abnormal uterine bleeding (AUB) N93.9 Complex ovarian cyst N83.299 CPT Codes Endometrial Biopsy - CPT: 00820-[id number] Biopsy ([id number])
--- OUTSIDE RECORDS SUMMARY | 2025-04-08 15:08 | XMS_ITS | Clinical Summary ---
Author Organization [employer] Address [address] [facility] 7t [place] [address] Care Team Providers Care Band Leader Name Role Phone Ingris Johnson DO Primary Care Provider [phone] Allergies Active Allergy Reactions Criticality Noted Date Comments Fluticasone Other 12/27/2016 Other reaction(s): epistaxis Nose Bleeds Latex Hives 12/27/2016 Lidocaine Rash Low 10/22/2024 Other 02/02/2024 Dissolvable stitches Oxycodone-Acetaminophen Itching,Rash Low 12/27/2016 Other reaction(s): hives Penicillin G Anaphylaxis High 12/27/2016 Other reaction(s): hives-as a child Argyle Oil Unknown 08/01/2022 Vancomycin Itching,Rash Low 12/27/2016 [...] TO FIND Nitric Oxide 02/20/20 24 Active Buffalo-3 Fatty Acids (Fish Oil) 1000 MG capsule delayed-releas e Take 1,000 mg by mouth Once per day. 02/20/20 24 Active Lysine 500 MG capsule Take 500 mg by mouth Once per day. 02/20/20 24 Active Beclomethasone Diprop HFA (Qvar) 80 MCG/ACT inhaler Inhale 2 puffs 2 times daily. 10/23/19 25 Active Budeson-Glycop yrrol-Formoter ol (Breztri Aerosphere) 160-9-4.8 MCG/ACT aerosol Inhale 2 puffs 2 times daily. 10/23/19 25 026 Active Atrovent HFA 17 MCG/ACT inhaler Inhale 2 puffs every 6 (six) hours if needed for wheezing or shortness of breath. 11/22/19 25 Active valACYclovir (Valtrex) 1 g tabletIndicati ons:H/O cold sores 1 tab po BID x 5 days starting on first day of outbreak, repeat course as needed every 2 weeks 60 tablet 2 02/20/20 Active meloxicam (Mobic) 15 MG tabletIndicati ons:Acute pain Take 1 tablet (15 mg) by mouth Once per day for 7 days. 7 tablet 04/07/20 25 026 Active meloxicam (Mobic) 15 MG tabletIndicati ons:Acute pain Take 1 tablet (15 mg) by mouth Once per day for 7 days. 7 tablet 04/07/20 25 025 Discontinued Active Problems Problem Noted Date Diagnosed Date [...] Patient verbalizes understanding and will go to [facility] ED for in person evaluation [...] for the 2nd opinion rheumatology consultation at [facility] Rheumatology 09/23/2020 when she was fairly asymptomatic so there was no clear indication for adding any DMARDs at that time. She did benefit from Celebrex. After clinical and ultrasonographic evaluation at [facility] by Dr. Lewis on 11/09/2020 there are [...] her a second opinion rheumatology consultation at [facility] Rheumatology-she was seen on 09/23/[address] Crystal Neely and at that time did not have flare . Resolved Problems Problem Noted Date Diagnosed Date Resolved Date Influenza A 05/09/2024 05/28/2024 Encounters Date Type Department Care Team Description 04/08/2025 Travel 04/07/[address] [address] Ingris Johnson DO New Med Request 03/19/2025 2:00 PM EST [facility] [address] [place] [address] Lyssa Edwards Stage 2 grade A generalized periodontitis per AAP/EFP 2017 classification (Primary Dx) 03/18/2025 Travel 03/17/[address] [address] Ingris Johnson DO 03/17/2025 Results Follow-Up [address] [address] Ingris Johnson DO von Willebrand Panel 03/12/[address] [address] Ingris Johnson DO Lab Results 02/18/2025 8:15 AM EST Office Visit [address] [address] Ingris Johnson DO Abnormal uterine bleeding (AUB) (Primary Dx); Cyst of right ovary; Recurrent cold sores 02/18/[address] [address] Ingris Johnson DO H/O cold sores 02/15/2025 Travel 02/13/2025 Results Follow-Up [address] [place] [address] Shantelle Johnsonndra, DO US Pelvis Transvaginal from Last 3 Months Immunizations Immunization Administration [...] Team (Late st Contact Info) Description 04/15/2025 4:30 PM EST Telemedicine [facility] MEDICAL [address] [place] [address] King Ingris, DO [address] [place] [address] 09/24/2025 9:20 AM EDT [facility] [address] [place] [address] Lyssa Edwards [address] [place] [address] Health Maintenance Due Date Last Done Comments HIV Screening 1989 Pneumococcal Vaccine: Pediatrics (0 to 5 Years) and At-Risk Patients (6 to 49) Years (1 of 2 - PCV) 2008 COVID-19 Vaccine ( - season) 2024 Influenza Vaccine (#1) 2024 Dental Oral Exam 03/19/2025 09/16/2024, , 07/18/2023, Additional history exists Alcohol/Substance Use Screening 04/15/2025 04/15/2024 Disability Screening 05/08/2025 05/08/2024 Depression Screening 07/08/2025 07/08/2024, 07/09/19 Family Planning (PISQ) 07/08/2025 07/08/2024 SDOH Screening 07/08/2025 07/08/2024 Dental X-Ray: Bitewings 09/17/2025 09/17/19 25, 01/12/2024, 07/18/2023, Additional history exists Dental Prophylaxis 09/18/2025 03/19/2025, 0 09/16/2024, 01/24/2024, Additional history exists Tobacco Screening 02/18/2026 02/18/2025 [...] Date/Time Associated Diagnosis Comments AMB REFERRAL TO OB-LOGISTICS ANALYST Routine 04/08/2025 Recurrent cold sores PROPHYLAXIS - ADULT Routine 03/19/2025 2 :00 PM EST VON WILLEBRAND PANEL Routine 03/13/2025 Abnormal uterine bleeding (AUB) FIBRINOGEN ACTIVITY, CLAUSS Routine 03/04/2025 Abnormal uterine [...] TRANSVAGINAL Routine 02/05/2025 Abnormal uterine bleeding (AUB) BITEWINGS - 4 RADIOGRAPHIC IMAGES Routine 09/16/2024 [...] Recently Relevant to Health Maintenance Results * Referral to Obstetrics / Gynecology (04/08/2025) [facility] Alex OUTPATIENT REFERRAL ORDERABLES Final Result * von Willebrand Panel (03/13/2025) Blood Venous blood specimen / Unknown [place] LAB BLOOD ORDERABLES Final Res ult Performing Organization Address [facility] de Phone Number [facility] [address] [place] [address], [place] [phone] * CBC auto differential (03/04/2025) Blood Venous blood specimen / Unknown [place] LAB BLOOD ORDERABLES Final Res ult Performing Organization Address City/[facility]/ZIP Co de Phone Number [facility] [address] [place] [address], [place] [phone] * Partial Thromboplastin Time, Activated (APTT) (03/04/2025) Blood Venous blood specimen / Unknown Ingris Alex LAB BLOOD ORDERABLES Final Res ult Performing Organization Address [facility]/ZIP Co de Phone Number [facility] [address] [place] [address], [place] [phone] * Prothrombin Time-INR (03/04/2025) Blood Venous blood specimen / Unknown [place] DO LAB BLOOD ORDERABLES Final Res ult Performing Organization Address [facility] de Phone Number [facility] [address] [place] [address], [place] [phone] * Fibrinogen Activity, Clauss (03/04/2025) Blood Venous blood specimen / Unknown [place] DO LAB BLOOD ORDERABLES Final Res ult Performing Organization Address [facility] de Phone Number [facility] [address] [place] [address], [place] [phone] * HCG, Total, Qualitative (03/04/2025) Blood Venous blood specimen / Unknown [place] LAB BLOOD ORDERABLES Final Res ult Performing Organization Address [facility] de Phone Number [facility] [address] [place] [address], [place] [phone] * TSH (03/04/2025) Blood Venous blood specimen / Unknown [place] DO LAB BLOOD ORDERABLES Final Res ult Performing Organization Address [facility] de Phone Number [facility] [address] [place] [address], [place] [phone] * Comprehensive Metabolic Panel (03/04/2025) Blood Venous blood specimen / Unknown [place] DO LAB BLOOD ORDERABLES Final Res ult Performing Organization Address [facility] de Phone Number [facility] [address] [place] [address], * US Pelvis Transvaginal (02/05/2025) Anatomical Region Laterality Modality Pelvis Ultrasound us PepperIngris King SHEILA IMG US PROCEDURES Final Result * Pap - Age Guideline for Cervical Cancer and STDs (Aptima??) [315159] (07/08/2024 12:00 AM EDT) Age Guideline ACOG Testing 30-65 [facility] 1 ThinPrep vial (Cervical cells) 07/08/2024 07/08/2024 Comment:Cervical cells Narrative [facility] 1 - 07/10/2024 2:05 PM EDT Performed at: [facility] [address], [address], [place], [place] [id number] Service Worker: Daniel Mace MD, Phone: [phone] Specimen Comment: [id number] Specimen Comment: Source.............Cervix Specimen Comment: LMP / Prev Treat...[id number] Specimen Comment: No. of containers..01 ThinPrep Vial us Ingris Johnson DO LAB CYTOLOGY ORDERABLES Final Result [facility] 1 * Image Guided Pap, Aptima HPV w/Reflex to HPV Genotypes 16 and 18,45 (07/08/2024 12:00 AM EDT) Diagnosis [facility] 1 Comment:NEGATIVE FOR INTRAEP ITHELIAL LESION OR MALIGNANCY. Adequacy: [facility] 1 Comment: Satisfactory for evaluation. Endocervical and/or squamous metaplastic cells (endocervical component) are present. Clinician provided ICD-10: [facility] 1 Comment:Z12.4 Performed by: [facility] 1 Comment:Lisa Mendoza, [facility] otechnologist (ASCP) Cytology Comment . [facility] [...] 07/10/2024 2:05 PM EDT Performed at: - [facility] [address], [address], [place], [place] [id number] Service Worker: Daniel Mace MD, Phone: [phone] Performed at: - [facility] [address], [address], [place], [place] [id number] Service Worker: Daniel Mace MD, Phone: [phone] Ingris Johnson DO LAB CYTOLOGY ORDERABLES Final Result [facility] 1 [facility] 2 * Hepatitis C antibody, qualitative (08/19/2020 9:33 AM EDT) HCV NON-REACTI VE NON-REACTI VE [facility] 08/19/2020 9:33 AM EDT us Susanna Hyatt MD HISTORICAL/NON ORDERABLE LABS Final Result [facility] [address] from Last 3 Months or Most Recently Relevant to Health Maintenance Insurance [employer] [facility] - HSN PARTIAL (MEDICAID) [facility] Care Teams Band Leader Relationship Specialty Start Date End Date Ingris Johnson DO [address] [place] [address] PCP - General Family Medicine 01/08/24
--- OUTSIDE RECORDS SUMMARY | 2025-04-08 15:08 | XMS_ITS | Encounter Summary ---
Author Organization [employer] Address [address] [facility] 7t [place] [address] Care Team Providers Care Process Laboratory Specialist Name Role Phone Ingris Johnson DO Primary Care Provider [phone] Reason for Visit * Reason Onset Date Comments New Med Request 04/07/2025 Encounter Details Date Type Department Care Team (Late st Contact Info) Description 04/07/[address] [facility] MEDICAL [address] [place] [address] Ingris Johnson DO [address] [place] [address] New Med Request Social History Tobacco Use Types Packs/Day Years [...] encounter Miscellaneous Notes * Telephone Encounter - Mitali Kang LPN - 04/07/2025 3:12 PM EST Called the pt to let her know the Rx was sent in * Telephone Encounter - Ingris Johnson DO - 04/07/2025 3:10 PM EST Prescription sent * Telephone Encounter - Basilia Menjivar - 04/07/2025 2:02 PM EST Patient called stating she thought NATALIE was going to send over Meloxicam for her upcoming biopsy tomorrow (04/08/25) since she is unable to have Ibuprofen. Patient states she would like it sent to [facility] in [place], [place]. Preferred Pharmacy: [facility] [place] - [address] documented in this encounter Plan of Treatment Upcoming Encounters Date Type Department Care Team (Late st Contact Info) Description 04/15/2025 4:[address] [facility] MEDICAL [address] [place] [address] Ingris Johnson DO [address] [place] [address] 09/24/2025 9:20 AM EDT Office Visit [facility] DENTAL [address] [place] [address] Lyssa Edwards [address] [place] [address] documented as of this encounter Visit Diagnoses Diagnosis Acute pain- Primary documented in this encounter Care Teams Process Laboratory Specialist Relationship Specialty Start Date End Date Ingris Johnson DO [address] [place] [address] PCP - General Family Medicine 01/08/24 documented as of this encounter
--- OUTSIDE RECORDS SUMMARY | 2025-04-08 15:08 | XMS_ITS | Clinical Summary ---
Author Organization [address] [facility] [address] [facility] Address [address] [place] [address] Phone Care Team Providers Care Logistics Lead Name Role Phone Ingris Johnson MD Primary Care Provider [phone] Social History Tobacco Use Types Packs/Day Years [...] patient's age to complete this topic Insurance [facility] [employer] Care Teams Logistics Lead Relationship Specialty Start Date End Date Ingris Johnson MD PCP - General Family Medicine 07/05/24
--- OUTSIDE RECORDS SUMMARY | 2025-04-08 15:08 | XMS_ITS | Encounter Summary ---
Author Organization [facility] Address [address] [facility] [address] [place] [address] Phone Care Team Providers Care Personnel Placement Specialist Name Role Phone RaMayuri black Sandra TIMMONS Primary Care Provider + Fallon Portillo Primary Care Provider [phone] Yisel Boles MD Unavailable [phone] Ingris Johnson DO Primary Care Provider [phone] Ingris Johnson DO Primary Care Provider [phone] Encounter Details Date Type Department Care Team (Late st Contact Info) Description 06/30/2021 Ancillary Orders [facility] Rheumatology Clinic [address] [place] [address] Susanna Hyatt MD [address] [facility], [address] [place] [address] [email or web address] Social History Tobacco Use Types Packs/Day Years [...] Description 04/15/2025 10:00 AM EST Office Visit [facility] Pulmonology, Allergy and Critical Care Medicine Clinic [address] [facility] [place] [address] Isha Porter MD 10 [facility] 2nd [place] [address] documented as of this encounter Visit Diagnoses Not on filedocumented in this encounter Additional Health Concerns Infection Onset Date Last Indicated Resolved Time CoV-Risk 05/25/2023 05/25/2023 06/05/2023 1:24 AM EST documented as of this encounter Care Teams Personnel Placement Specialist Relationship Specialty Start Date End Date Mayuri Michael CNP [address] [place] [address] [email or web address] PCP - General 01/24/17 09/01/22 Fallon Portillo PA [address] [place] [address] [email or web address] PCP - General Physician Regional Sales Manager 09/02/22 05/01/24 Ingris Johnson DO [address] [place] [address] PCP - General Family Medicine 05/02/24 10/07/24 Ingris Johnson DO [address] [place] [address] PCP - General Family Medicine 10/08/24 Yisel Boles MD [address] [place] [address] Insurance Assigned Provider 07/15/23 03/20/24 documented as of this encounter Additional Source Comments The information contained in this document represents components of the legal health record. It is not the complete legal health record.[facility]
--- OUTSIDE RECORDS SUMMARY | 2025-04-08 15:08 | XMS_ITS | Encounter Summary ---
Author Organization [employer] Address [address] [facility] [address] 7t [place] [address] Care Team Providers Care Veneer Repairer Machine Name Role Phone Ingris Johnson DO Primary Care Provider [phone] Encounter Details Date Type Department Care Team (Late st Contact Info) Description 04/22/2024 Orders Only [facility] MED[facility] [address] [place] [address] Ingris Johnson DO [address] [place], [place] [phone] Social History Tobacco Use Types Packs/Day Years [...] Info) Description 04/15/2025 4:30 PM EST Telemedicine [facility] MEDICAL [address] [place] [address] Ingris Johnson DO [address] [place] [address] 09/24/2025 9:20 AM EDT Office Visit [facility] DENTAL [address] [place] [address] Lyssa Edwards [address] [place] [address] documented as of this encounter Visit Diagnoses Not on filedocumented in this encounter Care Teams Veneer Repairer Machine Relationship Specialty Start Date End Date Ingris Johnson DO [address] [place] [address] PCP - General Family Medicine 01/08/24 documented as of this encounter
--- OUTSIDE RECORDS SUMMARY | 2025-04-08 15:08 | XMS_ITS | Encounter Summary ---
Author Organization [facility] Address [address] [facility] [address] [place] [address] Phone Care Team Providers Care Log Raft Worker Name Role Phone RaMayuri black Sandra TIMMONS Primary Care Provider + Fallon Portillo Primary Care Provider [phone] Yisel Boles MD Unavailable [phone] Ingris Johnson DO Primary Care Provider [phone] Ingris Johnson DO Primary Care Provider [phone] Encounter Details Date Type Department Care Team (Latest Contact Info) Description 07/05/[address] [facility] Rheumatology Clinic [address] [place] [address] Susanna Hyatt MD [address] [facility], [address] [place] [address] [email or web address] Inflammatory polyarthritis Social History Tobacco Use Types [...] 04/15/2025 10:00 AM EST Office Visit [facility] Pulmonology, Allergy and Critical Care Medicine Clinic [address] [place] [address] Isha Porter MD 10 [facility] 2nd [place] [address] [email or web address] documented as of this encounter Results * [...] documented as of this encounter Care Teams Log Raft Worker Relationship Specialty Start Date End Date Mayuri Michael CNP [address] [place] [address] [email or web address] PCP - General 01/24/17 09/01/22 Fallon Portillo PA [address] [place] [address] [email or web address] PCP - General Physician Navy Airspace Officer 09/02/22 05/01/24 Ingris Johnson DO [address] [place] [address] [email or web address] PCP - General Family Medicine 05/02/24 10/07/24 Ingris Johnson DO [address] [place] [address] PCP - General Family Medicine 10/08/24 Yisel Boles MD [address] [place] [address] [email or web address] Insurance Assigned Provider 07/15/23 03/20/24 documented as of this encounter Additional Source Comments The information contained in this document represents components of the legal health record. It is not the complete legal health record.[facility]
--- OUTSIDE RECORDS SUMMARY | 2025-04-08 15:08 | XMS_ITS | Encounter Summary ---
Author Organization [facility] Address [address] [facility] [address] [place] [address] Phone Care Team Providers Care Sand Technologist Name Role Phone RaMayuri black Sandra TIMMONS Primary Care Provider + Fallon Portillo Primary Care Provider [phone] Yisel Boles MD Unavailable [phone] Ingris Johnson DO Primary Care Provider [phone] Ingris Johnson DO Primary Care Provider [phone] Encounter Details Date Type Department Care Team (Latest Contact Info) Description 06/30/2021 Ancillary Orders [facility] Rheumatology Clinic [address] [place] [address] Susanna Hyatt MD 22 [facility], [address] [place] [address] [email or web address] Pneumonia due to COVID-19 virus Social History [...] Description 04/15/2025 10:00 AM EST Office Visit [facility] Pulmonology, Allergy and Critical Care Medicine Clinic [address] [place] [address] Isha Porter MD 10 [facility] 2nd [place] [address] [email or web address] documented as of this encounter Visit Diagnoses Diagnosis Pneumonia due to COVID-19 virus documented in this encounter Additional Health Concerns Infection Onset Date Last Indicated Resolved Time CoV-Risk 05/25/2023 05/25/2023 06/05/2023 1:24 AM EST documented as of this encounter Care Teams Sand Technologist Relationship Specialty Start Date End Date Mayuri Michael CNP [address] [place] [address] [email or web address] PCP - General 01/24/17 09/01/22 Fallon Portillo PA [address] [place] [address] [email or web address] PCP - General Physician Chief Unit Forester 09/02/22 05/01/24 Ingris Johnson DO [address] [place] [address] [email or web address] PCP - General Family Medicine 05/02/24 10/07/24 Ingris Johnson DO [address] [place] [address] PCP - General Family Medicine 10/08/24 Yisel Boles MD [address] [place] [address] [email or web address] Insurance Assigned Provider 07/15/23 03/20/24 documented as of this encounter Additional Source Comments The information contained in this document represents components of the legal health record. It is not the complete legal health record.[facility]
--- OUTSIDE RECORDS SUMMARY | 2025-04-08 15:08 | XMS_ITS | Encounter Summary ---
Author Organization [employer] Address [address] [facility] [address] [place] [address] Care Team Providers Care Nurses Medical Assistants Phlebotomists Name Role Phone Ingris Johnson Primary Care Provider [phone] Encounter Details Date Type Department Care Team (Latest Contact Info) Description 04/08/2025 Travel Social History Tobacco Use Types Packs/Day Years [...] is your housing situation today? I have nazanintod briggs 08/21/[address] you [...] t he electric, gas, oil or water [employer]in threatened to shut off services in your [...] Info) Description 04/15/2025 4:30 PM EST Telemedicine [facility] MEDICAL [address] [place] [address] Ingris Johnson DO [address] [place] [address] 09/24/2025 9:20 AM EDT Office Visit [facility] DENTAL [address] [place] [address] Lyssa Edwards [address] [place] [address] documented as of this encounter Visit Diagnoses Not on filedocumented in this encounter Care Teams Nurses Medical Assistants Phlebotomists Relationship Specialty Start Date End Date Ingris Johnson DO [address] [place] [address] PCP - General Family Medicine 01/08/24 documented as of this encounter
--- OUTSIDE RECORDS SUMMARY | 2025-04-08 15:08 | XMS_ITS | Encounter Summary ---
Author Organization [employer] Address [address] [facility] [facility] [address] [place] [address] Care Team Providers Care Deicer Inspector Electric Name Role Phone Ingris Johnson DO Primary Care Provider [phone] Encounter Details Date Type Department Care Team (Late st Contact Info) Description 04/06/2024 Orders Only [facility] [address] [place] [address] Ingris Johnson DO [address] [place] [address] Social History Tobacco Use Types Packs/Day Years [...] Info) Description 04/15/2025 4:30 PM EST Telemedicine [facility] MEDICAL [address] [place] [address] Ingris Johnson DO [address] [place] [address] 09/24/2025 9:20 AM EDT Office Visit [facility] DENTAL [address] [place] [address] Lyssa Edwards [address] [place] [address] documented as of this encounter Procedures Procedure Name Priority Date/Time Associated Diagnosis Comments COMPREHENSIVE METABOLIC PANEL Routine 03/29/2024 10:45 AM EST CBC WITH AUTO DIFFERENTIAL Routine 03/29/2024 10:45 AM EST documented in this encounter Results * Comprehensive Metabolic Panel (03/29/2024 10:45 AM EST) Blood Venous blood specimen / Unknown Ingris Johnson LAB BLOOD ORDERABLES Final Res ult * CBC auto differential (03/29/2024 10:45 AM EST) Blood Venous blood specimen / Unknown us Ingris Johnson DO LAB BLOOD ORDERABLES Final Res ult documented in this encounter Visit Diagnoses Not on filedocumented in this encounter Care Teams Deicer Inspector Electric Relationship Specialty Start Date End Date Ingris Johnson DO [address] [place] [address] PCP - General Family Medicine 01/08/24 documented as of this encounter
--- OUTSIDE RECORDS SUMMARY | 2025-04-08 15:08 | XMS_ITS | Encounter Summary ---
Author Organization [employer] Address 75 [facility] 7t [place] [address] Care Team Providers Care Biotechnician Name Role Phone Ingris Johnson DO Primary Care Provider [phone] Encounter Details Date Type Department Care Team (Late st Contact Info) Description 03/17/2025 Results Follow-Up [facility] MEDICAL [address] [place] [address] Ingris Johnson DO [address] [place] [address] von Willebrand Panel Social History Tobacco Use Types Packs/Day Years [...] your housing situation today? I have nazanin brigsg 08/21/[address] you li [...] 04/15/2025 4:[address] [facility] [address] [place] [address] Ingris Johnson DO [address] [place] [address] 09/24/2025 9:20 AM EDT Office Visit [facility] DENTAL [address] [place] [address] Lyssa Edwards [address] [place] [address] documented as of this encounter Visit Diagnoses Not on filedocumented in this encounter Care Teams Biotechnician Relationship Specialty Start Date End Date Ingris Johnson DO [address] [place] [address] PCP - General Family Medicine 01/08/24 documented as of this encounter
--- OUTSIDE RECORDS SUMMARY | 2025-04-08 15:09 | XMS_ITS | Encounter Summary ---
Author Organization [employer] Address [address] [facility] [address] 7t [place] [address] Care Team Providers Care Ceramics Engineer Name Role Phone AlexIngris Primary Care Provider [phone] Encounter Details Date Type Department Care Team (Late st Contact Info) Description 01/31/2024 Orders Only [facility] [address] [place] [address] Tai Bang NP [address] [place] [address] Social History Tobacco Use Types Packs/Day Years [...] Info) Description 04/15/2025 4:30 PM EST Telemedicine [facility] MEDICAL [address] [place] [address] Ingris Johnson DO [address] [place] [address] 09/24/2025 9:20 AM EDT Office Visit [facility] DENTAL [address] [place] [address] Lyssa Edwards 58 [place] [address] documented as of this encounter Procedures Procedure Name Priority Date/Time Associated Diagnosis Comments PULMONARY FUNCTION TESTING Routine 06/30/2021 9:04 AM EDT documented in this encounter Results * Pulmonary function testing (06/30/2021 9:04 AM EDT) Tai Bang REHAB LIAISON PFT ORDERABLES Final Result documented in this encounter Visit Diagnoses Not on filedocumented in this encounter Care Teams Ceramics Engineer Relationship Specialty Start Date End Date Ingris Johnson DO [address] [place] [address] PCP - General Family Medicine 01/08/24 documented as of this encounter
--- OUTSIDE RECORDS SUMMARY | 2025-04-08 15:09 | XMS_ITS | Encounter Summary ---
Author Organization [employer] Address [address] [place] [address] 7t [place] [address] Care Team Providers Care Lease Picker Name Role Phone Fallon Portillo PA-C Primary Care Provider Unav Ingris Flores DO Primary Care Provider [phone] Encounter Details Date Type Department Care Team [...] Info) Description 04/15/2025 4:30 PM EST Telemedicine [facility] MEDICAL [address] [place] [address] Ingris Johnson DO [address] [place] [address] 09/24/2025 9:20 AM EDT Office Visit [facility] DENTAL [address] [place] [address] Lyssa Edwards [address] [place] [address] documented as of this encounter Visit Diagnoses Not on filedocumented in this encounter Care Teams Lease Picker Relationship Specialty Start Date End Date Fallon Portillo PA-C PCP - General Family Medicine 06/20/22 01/07/24 Ingris Johnson DO [address] [place] [address] PCP - General Family Medicine 01/08/24 documented as of this encounter
--- OUTSIDE RECORDS SUMMARY | 2025-04-08 15:09 | XMS_ITS | Encounter Summary ---
Author Organization [facility] Address [address] [place] [address] [place] [address] Phone Care Team Providers Care Mixed Animal Veterinarian Name Role Phone Fallon Portillo Primary Care Provider [phone] Yisel Boles MD Unavailable [phone] Ingris Johnson DO Primary Care Provider [phone] Ingris Johnson DO Primary Care Provider [phone] Reason for Referral * MRI/CAT Scan - Closed Specialty Diagnoses / Procedures Referred By Contemilia t Referred To Contact Radiology Diagnoses Acute pain of right knee Procedures MRI Knee (Right) CHG MRI LOWER EXTREM JT, W/O CONTRAST CHG MRI, JOINT OF LEG W/CONTRAST CHG MRI, JOINT OF LEG. Fallon Morton PA 73 [facility] [place] [address] Phone: tel: fax: [email or web address] Referral ID Status Reason Start Date Expiration Date Visits Re quested Visits Authorized [id number] Closed 05/22/2023 06/21/2023 1 1 Encounter Details Date Type Department Care Team (Latest Contact Info) Description 04/25/2023 Transcribe Orders [facility] Department [address] [place], [place] [phone] Fallon Portillo PA 73 [facility] [place] [address] [email or web address] Acute pain of right knee (Primary [...] Description 04/15/2025 10:00 AM EST Office Visit [facility] Pulmonology, Allergy and Critical Care Medicine Clinic [address] [place] [address] Isha Porter MD [address] [place] [address] [email or web address] documented as of this encounter Results * [...] communicated on 05/22/2023 5:36 PM, Message ID [id number]. Narrative 05/22/2023 5:36 PM EST MRI KNEE WITHOUT CONTRAST (RIGHT) Referring clinician's provided indication for this examination in [facility]: Outside Radiology Order; ACUTE RIGHT KNEE [...] was communicated on 05/22/2023 5:36 PM,Message ID [id number]. Fallon SHEPHERD IMG MR EXTREMITY Final Result documented in this encounter Visit Diagnoses Diagnosis Acute pain of right knee- Primary Acute pain of right knee documented in this encounter Additional Health Concerns Infection Onset Date Last Indicated Resolved Time CoV-Risk 05/25/2023 05/25/2023 06/05/2023 1:24 AM EST documented as of this encounter Care Teams Mixed Animal Veterinarian Relationship Specialty Start Date End Date Fallon Portillo PA [email or web address] PCP - General Physician Analyst Programmer 09/02/22 05/01/24 Ingris Johnson DO [address] [place] [address] PCP - General Family Medicine 05/02/24 10/07/24 Ingris Johnson DO [address] [place] [address] PCP - General Family Medicine 10/08/24 Yisel Boles MD [address] [place] [address] Insurance Assigned Provider 4/6/24 12/11/24 documented as of this encounter Additional Source Comments The information contained in this document represents components of the legal health record. It is not the complete legal health record.[facility]
--- OUTSIDE RECORDS SUMMARY | 2025-04-08 15:09 | XMS_ITS | Encounter Summary ---
Author Organization [facility] Address [address] [place] [address] Phone Care Team Providers Care Chief Service Dispatcher Name Role Phone Mayuri Michael CNP Primary Care Provider + Mayuri Michael PARTY PLAN SALESPERSON Unavailable [phone] Tai Garcia MD Unavailable [phone] Barak Cheema DPM Unavailable Unavailable Fallon Portillo Primary Care Provider [phone] Yisel Boles MD Unavailable [phone] Ingris Johnson DO Primary Care Provider [phone] Ingris Johnson DO Primary Care Provider [phone] Encounter Details Date Type Department Care Team (Late st Contact Info) Description 08/17/2020 Procedure Pass [facility] - [address] [place] [address] Social History Tobacco Use Types Packs/Day Years [...] Description 04/15/2025 10:00 AM EST Office Visit [facility] Pulmonology, Allergy and Critical Care Medicine Clinic [address] [facility] [place] [place] [address] Isha Porter MD 10 [facility] 2nd [place] [address] [email or web address] documented as of this encounter Visit Diagnoses Not on filedocumented in this encounter Additional Health Concerns Infection Onset Date Last Indicated Resolved Time CoV-Exposed Comment:Recent close contact documented in the Travel/Symptom Screening Form 04/10/2021 04/25/2021 1:[address] CoV-Risk 05/25/2023 05/25/2023 06/05/2023 1:24 AM EST documented as of this encounter Care Teams Chief Service Dispatcher Relationship Specialty Start Date End Date Mayuri Michael CNP [address] [place] [address] [email or web address] PCP - General 01/24/17 09/01/22 Fallon Portillo PA [address] [place] [address] [email or web address] PCP - General Physician Youth Services Specialist 09/02/22 05/01/24 Ingris Johnson DO [address] [place] [address] PCP - General Family Medicine 05/02/24 10/07/24 Ingris Johnson DO [address] [place] [address] PCP - General Family Medicine 10/08/24 Mayuri Michael CNP [address] [place] [address] [email or web address] Historical LMR Provider 01/26/1704/17 Tai Garcia MD [address] [place] [address] Historical LMR Provider 01/26/17 Barak Cheema DPM [address] [place] [address] Historical LMR Provider 01/26/1704/17/21 Yisel Boles MD 73 [place] [address] [email or web address] Insurance Assigned Provider 07/15/23 03/20/24 documented as of this encounter Additional Source Comments The information contained in this document represents components of the legal health record. It is not the complete legal health record.[facility]
--- OUTSIDE RECORDS SUMMARY | 2025-04-08 15:09 | XMS_ITS | Encounter Summary ---
Author Organization [employer] Address [address] [place] [address] 7t [place] [address] Care Team Providers Care Tour Agent Name Role Phone Fallon Portillo PA-C Primary Care Provider Ingris Tejeda DO Primary Care Provider [phone] Encounter Details Date Type Department Care Team (Late st Contact Info) Description 04/19/2023 Orders Only [facility] [address] [place] [address] Fallon Portillo PA-C Social History Tobacco Use [...] Info) Description 04/15/2025 4:30 PM EST Telemedicine [facility] MEDICAL [address] [place] [address] Ingris Johnson DO [address] [place] [address] 09/24/2025 9:20 AM EDT Office Visit [facility] DENTAL [address] [place] [address] Lyssa Edwards [address] [place] [address] documented as of this encounter Procedures Procedure Name Priority Date/Time Associated Diagnosis Comments SED RATE BY MODIFIED WESTERGREN Routine 04/18/2023 documented in this encounter Results * Sed Rate by Modified Westergren (04/18/2023) Blood Venous blood specimen / Unknown Fallon Portillo PA-C LAB BLOOD ORDERABLES Edited Result - Final documented in this encounter Visit Diagnoses Not on filedocumented in this encounter Care Teams Tour Agent Relationship Specialty Start Date End Date Fallon Portillo PA-C PCP - General Family Medicine 06/20/22 01/07/24 Ingris Johnson DO [address] [place] [address] PCP - General Family Medicine 01/08/24 documented as of this encounter
--- OUTSIDE RECORDS SUMMARY | 2025-04-08 15:09 | XMS_ITS | Encounter Summary ---
Author Organization [facility] Address [address] [place] [address] Phone Care Team Providers Care Smash Piecer Name Role Phone Fallon Portillo Primary Care Provider [phone] Yisel Boles MD Unavailable [phone] Ingris Johnson DO Primary Care Provider [phone] Ingris Johnson DO Primary Care Provider [phone] Encounter Details Date Type Department Care Team (Late st Contact Info) Description 01/30/2024 Ancillary Orders [facility], [address] [address] Tai Bang, JOHN PAUL [address] [place] [address] Chronic cough (Primary Dx) Social History Tobacco [...] Description 04/15/2025 10:00 AM EST Office Visit [facility] Pulmonology, Allergy and Critical Care Medicine Clinic [address] [place] [address] Isha Porter MD [address] [place] [address] [email or web address] documented as of this encounter Results * [...] skeletal abnormality. IMPRESSION: Normal chest. Tai Bang TREATING MACHINE OPERATOR IMG XR CHEST Final Result documented in this encounter Visit Diagnoses Diagnosis Chronic cough- Primary Cough Chronic cough Cough documented in this encounter Care Teams Smash Piecer Relationship Specialty Start Date End Date Fallon Portillo PA [email or web address] PCP - General Physician Family Medicine Chair 09/02/22 05/01/24 Ingris Johnson DO [address] [place] [address] [email or web address] PCP - General Family Medicine 05/02/24 10/07/24 Ingris Johnson DO 73 [place] [address] PCP - General Family Medicine 10/08/24 Yisel Boles MD [address] [place] [address] [email or web address] Insurance Assigned Provider 07/15/23 03/20/24 documented as of this encounter Additional Source Comments The information contained in this document represents components of the legal health record. It is not the complete legal health record.[facility]
--- OUTSIDE RECORDS SUMMARY | 2025-04-08 15:09 | XMS_ITS | Encounter Summary ---
Author Organization [employer] Address [address] [facility] [address] 7t [place] [address] Care Team Providers Care Paper Counter Name Role Phone Fallon Portillo PA-C Primary Care Provider Ingris Tejeda DO Primary Care Provider [phone] Encounter Details Date Type Department Care Team (Late st Contact Info) Description 08/28/2023 Orders Only [facility] [address] [place] [address] Fallon Portillo PA-C Social History Tobacco Use [...] Info) Description 04/15/2025 4:30 PM EST Telemedicine [facility] MEDICAL [address] [place] [address] Ingris Johnson DO [address] [place] [address] 09/24/2025 9:20 AM EDT Office Visit [facility] DENTAL [address] [place] [address] Lyssa Edwards [address] [place] [address] documented as of this encounter Procedures Procedure [...] on filedocumented in this encounter Care Teams Paper Counter Relationship Specialty Start Date End Date Fallon Portillo PA-C PCP - General Family Medicine 06/20/22 01/07/24 Ingris Johnson DO [address] [place] [address] PCP - General Family Medicine 01/08/24 documented as of this encounter
--- OUTSIDE RECORDS SUMMARY | 2025-04-08 15:09 | XMS_ITS | Encounter Summary ---
Author Organization [facility] Address [address] [place] [address] Phone Care Team Providers Care Assurance Senior Manager Insurance Name Role Phone Mayuri Michael CNP Primary Care Provider + Fallon Portillo Primary Care Provider [phone] Yisel Boles MD Unavailable [phone] Ingris Johnson DO Primary Care Provider [phone] Ingris Johnson DO Primary Care Provider [phone] Encounter Details Date Type Department Care Team (Late Contact Info) Description 11/26/2021 Procedure Pass [facility]oscopy Admitting Dept Virtual Department [address] [place] [phone] Social History Tobacco Use Types Packs/Day Years [...] Upcoming Encounters Date Type Department Care Team ([facility] Contact Info) Description 04/15/2025 10:00 AM EST Office Visit [facility] Pulmonology, Allergy and Critical Care Medicine Clinic 10 [place] [address] Isha Porter MD [address] [address] documented as of this encounter Visit Diagnoses Not on filedocumented in this encounter Additional Health Concerns Infection Onset Date Last Indicated Resolved Time CoV-Risk 05/25/2023 05/25/2023 06/05/2023 1:24 AM EST documented as of this encounter Care Teams Assurance Senior Manager Insurance Relationship Specialty Start Date End Date Mayuri Michael CNP [address] [place] [address] [email or web address] PCP - General 01/24/17 09/01/22 Fallon Portillo PA [address] [place] [address] [email or web address] PCP - General Physician Hoop Maker 09/02/22 05/01/24 Ingris Johnson DO [address] [place] [address] PCP - General Family Medicine 05/02/24 10/07/24 Ingris Johnson DO [address] [place] [address] PCP - General Family Medicine 10/08/24 Yisel Boles MD [address] [place] [address] Insurance Assigned Provider 07/15/23 03/20/24 documented as of this encounter Additional Source Comments The information contained in this document represents components of the legal health record. It is not the complete legal health record.[facility]
--- OUTSIDE RECORDS SUMMARY | 2025-04-08 15:09 | XMS_ITS | Clinical Summary ---
Author Organization [facility] Address [address] [place], [place] [address] Phone Care Team Providers Care Judicial Registrar Name Role Phone Ingris Johnson Primary Care Provider [phone] Allergies Active Allergy Reactions Criticality Noted Date Comments Adhesive Tape-Silicones Rash Low 09/02/2022 Fluticasone Other (See Comments) 12/27/2016 Nose Bleeds Latex Hives 12/27/2016 Lidocaine Rash Low 10/22/2024 Other Other (See Comments) 12/27/2016 Nuckolls Nuts: Itchy Throat dissolvable sutures Skin reacts [...] is encouraged to discuss her options with technical communication teacher but according to her report she did [...] is encouraged to discuss her options with technical communication teacher but according to her report she did [...] - Schedule follow-up appointment in March. Orders: jitssqmroj-eqvqtnrn-qzxkjosajh (BREZTRI AEROSPHERE) 160-9-4.8 mcg/actuation inhaler; Inhale 2 [...] 7:51 PM EST): Follow closely with her technical communication teacher and schedule formal PFTs for better assessment. Dry skin 06/10/2021 Assessment & Plan (06/13/2021 7:49 PM EST): To make sure that she is not developing scleroderma-like features I added centromere and SCL antibodies to next blood draw. She may try different skin products such as Lubriderm, Neutrogena [place] formula fragrance free versus Eucerin or Aquaphor. [...] tapes versus CALM vs sleep with me MNANIE nightly. May need to consider formal sleep [...] Carefully continue lubricating drops as instructed by curator medical museum. Avoid prolonged air from fans or air [...] for the 2nd opinion rheumatology consultation at [facility] Rhe[facility] 09/23/2020 when she was fairly asymptomatic so there was no clear indication for adding any DMARDs at that time. She developed knee swelling the day following [facility] visit and got labs after visit with me on 09/24/2020 that revealed CRP at 9.9 (0-4.0). The subsequent visit in early November with Dr. Lewis at [facility] and musculoskeletal ultrasound did not reveal any [...] 19. After clinical and ultrasonographic evaluation at [facility] by Dr. Lewis on 11/09/2020 there were no signs of inflammatory arthritis necessitating DMARD therapy at this time. Assessment & Plan (10/10/2023 10:32 PM EDT): Additional labs have not revealed immunologic signs of rheumatoid arthritis versus systemic lupus erythematosus versus Sjogren's syndrome. She was seen for the 2nd opinion rheumatology consultation at [facility] Rheumatology 09/23/2020 when she was fairly asymptomatic so there was no clear indication for adding any DMARDs at that time. She developed knee swelling the day following [facility] visit and got labs after visit with [...] in early November with Dr. Lewis at [facility] and musculoskeletal ultrasound did not reveal any [...] 19. After clinical and ultrasonographic evaluation at [facility] by Dr. Lewis on 11/09/2020 there were no signs of inflammatory arthritis necessitating DMARD therapy at this time. Assessment & Plan (05/01/2023 4:57 PM EST): Additional labs have not revealed immunologic signs of rheumatoid arthritis versus systemic lupus erythematosus versus Sjogren's syndrome. She was seen for the 2nd opinion rheumatology consultation at [facility] Rheumatology 09/23/2020 when she was fairly asymptomatic so there was no clear indication for adding any DMARDs at that time. She developed knee swelling the day following [facility] visit and got labs after visit with [...] in early November with Dr. Lewis at [facility] and musculoskeletal ultrasound did not reveal any [...] After recent clinical and ultrasonographic evaluation at [facility] by Dr. Lewis on 11/09/2020 there are no signs of inflammatory arthritis necessitating DMARD therapy at this time. Assessment & Plan (09/02/2022 2:47 PM EDT): Additional labs have not revealed immunologic signs of rheumatoid arthritis versus systemic lupus erythematosus versus Sjogren's syndrome. She was seen for the 2nd opinion rheumatology consultation at [facility] Rheumatology 09/23/2020 when she was fairly asymptomatic so there was no clear indication for adding any DMARDs at that time. She developed knee swelling the day following [facility] visit and got labs after visit with [...] in early November with Dr. Lewis at [facility] and musculoskeletal ultrasound did not reveal any [...] After recent clinical and ultrasonographic evaluation at [facility] by Dr. Lewis on 11/09/2020 there are no signs of inflammatory arthritis necessitating DMARD therapy at this time. Assessment & Plan (05/05/2022 12:30 PM EST): Additional labs have not revealed immunologic signs of rheumatoid arthritis versus systemic lupus erythematosus versus Sjogren's syndrome. She was seen for the 2nd opinion rheumatology consultation at [facility] Rhe[facility] 09/23/2020 when she was fairly asymptomatic so there was no clear indication for adding any DMARDs at that time. She developed knee swelling the day following [facility] visit and got labs after visit with [...] in early November with Dr. Lewis at [facility] and musculoskeletal ultrasound did not reveal any [...] After recent clinical and ultrasonographic evaluation at [facility] by Dr. Lewis on 11/09/2020 there are no signs of inflammatory arthritis necessitating DMARD therapy at this time. Assessment & Plan (01/12/2022 10:08 AM EDT): Additional labs have not revealed immunologic signs of rheumatoid arthritis versus systemic lupus erythematosus versus Sjogren's syndrome. She was seen for the 2nd opinion rheumatology consultation at [facility] Rhe[facility]ology 09/23/2020 when she was fairly asymptomatic so there was no clear indication for adding any DMARDs at that time. She developed knee swelling the day following [facility] visit and got labs after visit with [...] in early November with Dr. Lewis at [facility] and musculoskeletal ultrasound did not reveal any [...] After recent clinical and ultrasonographic evaluation at [facility] by Dr. Lewis on 11/09/2020 there are no signs of inflammatory arthritis necessitating DMARD therapy at this time. Assessment & Plan (11/24/2021 10:19 AM EDT): Additional labs have not revealed immunologic signs of rheumatoid arthritis versus systemic lupus erythematosus versus Sjogren's syndrome. She was seen for the 2nd opinion rheumatology consultation at [facility] Rhe[facility]ology 09/23/2020 when she was fairly asymptomatic so there was no clear indication for adding any DMARDs at that time. She developed knee swelling the day following [facility] visit and got labs after visit with [...] in early November with Dr. Lewis at [facility] and musculoskeletal ultrasound did not reveal any [...] After recent clinical and ultrasonographic evaluation at [facility] by Dr. Lewis on 11/09/2020 there are no signs of inflammatory arthritis necessitating DMARD therapy at this time. Assessment & Plan (09/25/2021 4:39 PM EDT): Additional labs have not revealed immunologic signs of rheumatoid arthritis versus systemic lupus erythematosus versus Sjogren's syndrome. She was seen for the 2nd opinion rheumatology consultation at [facility] Rheumatology 09/23/2020 when she was fairly asymptomatic so there was no clear indication for adding any DMARDs at that time. She developed knee swelling the day following [facility] visit and got labs after visit with [...] in early November with Dr. Lewis at [facility] and musculoskeletal ultrasound did not reveal any [...] After recent clinical and ultrasonographic evaluation at [facility] by Dr. Lewis on 11/09/2020 there are no signs of inflammatory arthritis necessitating DMARD therapy at this time. Assessment & Plan (07/06/2021 10:54 AM EDT): Additional labs have not revealed immunologic signs of rheumatoid arthritis versus systemic lupus erythematosus versus Sjogren's syndrome. She was seen for the 2nd opinion rheumatology consultation at [facility] Rhe[facility]ology 09/23/2020 when she was fairly asymptomatic so there was no clear indication for adding any DMARDs at that time. She developed knee swelling the day following [facility] visit and got labs after visit with [...] in early November with Dr. Lewis at [facility] and musculoskeletal ultrasound did not reveal any [...] After recent clinical and ultrasonographic evaluation at [facility] by Dr. Lewis on 11/09/2020 there are no signs of inflammatory arthritis necessitating DMARD therapy at this time. She requested an excuse from work for next Monday-06/28/2021. Assessment & Plan (06/10/2021 9:56 AM EST): Additional labs have not revealed immunologic signs of rheumatoid arthritis versus systemic lupus erythematosus versus Sjogren's syndrome. She was seen for the 2nd opinion rheumatology consultation at [facility] Rheumatology 09/23/2020 when she was fairly asymptomatic so there was no clear indication for adding any DMARDs at that time. She developed knee swelling the day following [facility] visit and got labs after visit with [...] in early November with Dr. Lewis at [facility] and musculoskeletal ultrasound did not reveal any [...] After recent clinical and ultrasonographic evaluation at [facility] by Dr. Lewis on 11/09/2020 there are no signs of inflammatory arthritis necessitating DMARD therapy at this time. Assessment & Plan (04/04/2021 6:43 PM EST): Additional labs have not revealed immunologic signs of rheumatoid arthritis versus systemic lupus erythematosus versus Sjogren's syndrome. She was seen for the 2nd opinion rheumatology consultation at [facility] Rheumatology 09/23/2020 when she was fairly asymptomatic so there was no clear indication for adding any DMARDs at that time. She developed knee swelling the day following [facility] visit and got labs after visit with [...] in early November with Dr. Lewis at [facility] and musculoskeletal ultrasound did not reveal any [...] After recent clinical and ultrasonographic evaluation at [facility] by Dr. Lewis on 11/09/2020 there are no signs of inflammatory arthritis necessitating DMARD therapy at this time. Assessment & Plan (12/04/2020 10:22 PM EDT): Additional labs have not revealed immunologic signs of rheumatoid arthritis versus systemic lupus erythematosus versus Sjogren's syndrome. She was seen for the 2nd opinion rheumatology consultation at [facility] Rheumatology 09/23/2020 when she was fairly asymptomatic so there was no clear indication for adding any DMARDs at that time. She developed knee swelling the day following [facility] visit and got labs after visit with [...] After recent clinical and ultrasonographic evaluation at [facility] by Dr. Lewis on 11/09/2020 there are no signs of inflammatory arthritis necessitating DMARD therapy at this time. Assessment & Plan (10/27/2020 10:30 PM EDT): Additional labs have not revealed immunologic signs of rheumatoid arthritis versus systemic lupus erythematosus versus Sjogren's syndrome. She was seen for the 2nd opinion rheumatology consultation at [facility] Rheumatology 09/23/2020 when she was fairly asymptomatic so there was no clear indication for adding any DMARDs at that time. She developed knee swelling the day following [facility] visit and got labs after visit with [...] for the 2nd opinion rheumatology consultation at [facility] Rheumatology 09/23/2020 when she was fairly asymptomatic so there was no clear indication for adding any DMARDs at that time. 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 History of bunionectomy of [...] her a second opinion rheumatology consultation at [facility] Rheumatology-she was seen on 09/23/[address] [...] her a second opinion rheumatology consultation at [facility] Rheumatology. Assessment & Plan (08/25/2020 8:59 PM [...] her to address it separately with her technical communication teacher. I have reminded her that if she [...] her to address it separately with her technical communication teacher. 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 Referring MD: Mayuri Michael MD Exam Type: [...] monitored continuously. The Olympus adult variable colonoscope [id number] #2 was introduced through the anus and [...] 9:26 AM Procedure Code(s): --- Professional --- 93851, Colonoscopy, flexible; with biopsy, single or multiple --- Technical --- 96346, Colonoscopy, flexible; with biopsy, single or multiple [...] Change in bowel habit CPT copyright 2020 [employer]. All rights reserved. The codes documented in this report are preliminary and upon crop and soil technician reviewmay be revised to meet current compliance requirements. Procedure Date: 11/26/2021 9:26:[address] [place] [address] Mayuri Michael CNP GI PROCEDURE ORDERABLES Final Result * Hepatitis C antibody, qualitative (08/19/2020 9:33 AM EDT) HCV NON-REACTIV E NON-REACTI VE [facility] Blood 08/19/2020 9:33 AM EDT 08/19/2020 9:42 AM EDT Susanna Hyatt MD LAB BLOOD BKR ORDERABLES Final Result [facility] [address] [place], [place] [id number] from Last 3 Months or Most Recently Relevant to Health Maintenance Insurance [facility] [employer] [address] [place] [address] [employer] [facility] [employer]CTORC[employer] DIRECT [facility] BENEFITS ADMINISTRATORS [facility] [employer]ENEF[employer] [facility] BLUE BENEFITS ADMINISTRATORS Care Teams Judicial Registrar Relationship Specialty Start Date End Date Ingris Johnson DO [address] [place] [address] PCP - General Family Medicine 10/08/24 Additional Source Comments The information contained in this document represents components of the legal health record. It is not the complete legal health record.[facility]
--- OUTSIDE RECORDS SUMMARY | 2025-04-08 15:09 | XMS_ITS | Encounter Summary ---
Author Organization [facility] Address [address] [place] [address] Phone Care Team Providers Care Point Of Sale Associate Name Role Phone Fallon Portillo Primary Care Provider [phone] Yisel Boles MD Unavailable [phone] Ingris Johnson DO Primary Care Provider [phone] Ingris Johnson DO Primary Care Provider [phone] Encounter Details Date Type Department Care Team (Late st Contact Info) Description 05/25/2023 Procedure Pass [facility], Ct Scan - [address] [id number] Social History Tobacco Use Types Packs/Day Years [...] Description 04/15/2025 10:00 AM EST Office Visit [facility] Pulmonology, Allergy and Critical Care Medicine Clinic [address] [place] [address] Isha Porter MD [address] [place] [address] [email or web address] documented as of this encounter Visit Diagnoses Not on filedocumented in this encounter Additional Health Concerns Infection Onset Date Last Indicated Resolved Time CoV-Risk 05/25/2023 05/25/2023 06/05/2023 1:24 AM EST documented as of this encounter Care Teams Point Of Sale Associate Relationship Specialty Start Date End Date Fallon Portillo PA [email or web address] PCP - General Physician Legal Assistant 09/02/22 05/01/24 Ingris Johnson DO [address] [place] [address] PCP - General Family Medicine 05/02/24 10/07/24 Ingris Johnson DO [address] [place] [address] PCP - General Family Medicine 10/08/24 Yisel Boles MD [address] [place] [address] [email or web address] Insurance Assigned Provider 07/15/23 03/20/24 documented as of this encounter Additional Source Comments The information contained in this document represents components of the legal health record. It is not the complete legal health record.[facility]
--- OUTSIDE RECORDS SUMMARY | 2025-04-08 15:09 | XMS_ITS | Encounter Summary ---
Author Organization [facility] Address [address] [facility] [address] [place] [address] Phone Care Team Providers Care Inseam Leveler Name Role Phone Fallon Portillo Primary Care Provider [phone] Yisel Boles MD Unavailable Ingris Johnson DO Primary Care Provider [phone] Ingris Johnson DO Primary Care Provider [phone] Encounter Details Date Type Department Care Team (Late st Contact Info) Description 04/13/2023 Ancillary Orders [facility], [address] [id number] Fallon Portillo PA [address] [place] [address]. [place] [address] [email or web address] Acute pain of right knee (Primary [...] Description 04/15/2025 10:00 AM EST Office Visit [facility] Pulmonology, Allergy and Critical Care Medicine Clinic [address] [facility] [place] [address] Isha Porter MD [address] [place] [address] 2nd [place] [address] [email or web address] documented as of this encounter Results * [...] clinician's provided indication for this examination in [facility]: Pain COMPARISON: XR KNEE STANDING (BILATERAL, SINGLE VIEW ONLY) FINDINGS: No acute fracture or dislocation. Mild medial compartment marginal spurring. Joint spaces preserved. No joint effusion. Procedure Note Nelsy Cordero MD - 04/16/2023 XR KNEE 4 OR MORE VIEWS (RIGHT) Referring clinician's provided indication for this examination in [facility]:Pain COMPARISON: XR KNEE STANDING (BILATERAL, SINGLE [...] documented as of this encounter Care Teams Inseam Leveler Relationship Specialty Start Date End Date Fallon Portillo PA [email or web address] PCP - General Physician Early Childhood Education Specialist 09/02/22 05/01/24 Ingris Johnson DO [address] [place] [address] PCP - General Family Medicine 05/02/24 10/07/24 Ingris Johnson DO [address] [place] [address] PCP - General Family Medicine 10/08/24 Yisel Boles MD [address] [place] [phone] Insurance Assigned Provider 07/15/23 03/20/24 documented as of this encounter Additional Source Comments The information contained in this document represents components of the legal health record. It is not the complete legal health record.[facility]
--- OUTSIDE RECORDS SUMMARY | 2025-04-08 15:09 | XMS_ITS | Encounter Summary ---
Author Organization [facility] Address [address] [place] [address] [place] [address] Phone Care Team Providers Care El Teacher Name Role Phone Alec Mayurikat Flores CNP Primary Care Provider + Mayuri Michael PETROPHYSICIST Unavailable [phone] Tai Garcia MD Unavailable Barak Cheema DPM Unavailable Unavailable Fallon Portillo Primary Care Provider [phone] Yisel Boles MD Unavailable [phone] Ingris Johnson DO Primary Care Provider [phone] Ingris Johnson DO Primary Care Provider [phone] Encounter Details Date Type Department Care Team (Latest Contact Info) Description 02/11/2019 Ancillary Orders [facility] Rheumatology Clinic [address] [place] [address] Susanna Hyatt MD [address] [facility], [address] [place] [address] [email or web address] Chronic pain in right foot; Inflammatory polyarthritis [...] Description 04/15/2025 10:00 AM EST Office Visit [facility] Pulmonology, Allergy and Critical Care Medicine Clinic [address] [facility] [place] [address] Isha Porter MD [address] [facility] 2nd [place] [address] [email or web address] documented as of this encounter Results * [...] documented as of this encounter Care Teams El Teacher Relationship Specialty Start Date End Date Mayuri Michael CNP [address] [place] [address] [email or web address] PCP - General 01/24/17 09/01/22 Fallon Portillo PA [address] [place] [address] [email or web address] PCP - General Physician Neighborhood Planner 09/02/22 05/01/24 Ingris Johnson DO [address] [place] [address] [email or web address] PCP - General Family Medicine 05/02/24 10/07/24 Ingris Johnson DO [address] [place] [address] PCP - General Family Medicine 10/08/24 Mayuri Michael CNP [address] [place] [address] [email or web address] Historical LMR Provider 01/26/1704/17 Tai Garcia MD [address] [place] [address] Historical LMR Provider 01/26/17 Barak Cheema DPM [address] [place] [address] Historical LMR Provider 01/26/1704/17/21 Yisel Boles MD [address] [place] [address] Insurance Assigned Provider 4/6/24 12/11/24 documented as of this encounter Additional Source Comments The information contained in this document represents components of the legal health record. It is not the complete legal health record.[facility]
--- OUTSIDE RECORDS SUMMARY | 2025-04-08 15:09 | XMS_ITS | Encounter Summary ---
Author Organization [facility] Address [address] [place] [address] Phone Care Team Providers Care Rn First Assistant Name Role Phone AlecSylMayurikat Flores CNP Primary Care Provider + Fallon Portillo Primary Care Provider [phone] Yisel Boles MD Unavailable [phone] Ingris Johnson DO Primary Care Provider [phone] Ingris Johnson DO Primary Care Provider [phone] Encounter Details Date Type Department Care Team (Latest Contact Info) Description 09/16/2021 Transcribe Orders [facility] Main [address] [place] [address] Lisa Rodriguez PA-C [address], [address] [place] [address] [email or web address] Diarrhea, unspecified type (Primary Dx); Lower abdominal [...] Description 04/15/2025 10:00 AM EST Office Visit [facility] Pulmonology, Allergy and [facility] Medicine [facility] [address] [place] [address] Isha Porter MD 10 [facility] 2nd [place] [address] [email or web address] documented as of this encounter Results * Ferritin (09/16/2021 10:01 AM EDT) FERRITIN 104 13 - 150 ug/L [facility] Blood 09/16/2021 10:0 1 AM EDT 09/16/2021 10:07 AM EDT us Lisa Rodriguez PA-C LAB BLOOD BKR ORDERABLES Final Result [address] [address] * TSH (09/16/2021 10:01 AM EDT) TSH 1.79 0.27 - 4.20 uIU/mL [facility] Blood 09/16/2021 10:0 1 AM EDT 09/16/2021 10:07 AM EDT us Lisa SHEPHERD-Rufina LAB BLOOD BKR ORDERABLES Final Result [address] [address] * Immunoglobulin A (09/16/2021 10:01 AM EDT) IgA 144 70 - 400 mg/dL [facility] Blood 09/16/2021 10:0 1 AM EDT 09/16/2021 10:07 AM EDT us Lisa Rodriguez PA-C LAB BLOOD BKR ORDERABLES Final Result Performing Organization Address City/[facility]/ZIP Co de Phone Number [address] [address] * Lipase (09/16/2021 10:01 AM EDT) LIPASE 39 16 - 63 U/L [facility] Blood 09/16/2021 10:0 1 AM EDT 09/16/2021 10:07 AM EDT us Lisa Rodriguez PA-C LAB BLOOD BKR ORDERABLES Final Result Performing Organization Address [facility] Co de Phone Number [address] [address] * C-Reactive Protein (09/16/2021 10:01 AM EDT) C REACTIVE PROTEIN <3.0 0.0 - 4.0 mg/L [facility] Blood 09/16/2021 10:0 1 AM EDT 09/16/2021 10:07 AM EDT us Lisa Rodriguez PA-C LAB BLOOD BKR ORDERABLES Final Result Performing Organization Address [facility]/ZIP Co de Phone Number [address] [address] * Comprehensive metabolic panel (09/16/2021 10:01 AM EDT) SODIUM 139 133 - 146 mmol/L [facility] POTASSIUM 5.1 3.3 - 5.1 mmol/L [facility] CHLORIDE 104 96 - 108 mmol/L [facility] CO2 27 21 - 35 mmol/L [facility] BUN 16 6 - 19 mg/dL [facility] CREATININE 0.80 0.5 - 1.5 mg/dL [facility] GLUCOSE 96 70 - 99 mg/dL [facility] ALBUMIN 4.5 3.9 - 4.8 g/dL [facility] TOTAL PROTEIN 7.7 6.5 - 8.0 g/dL [facility] CALCIUM 9.2 8.4 - 10.3 mg/dL [facility] ALKALINE PHOSPHATASE 39 39 - 117 U/L [facility] TOTAL BILIRUBIN 0.5 0.0 - 1.2 mg/dL [facility] AST 17 0 - 37 U/L [facility] ALT 12 0 - 40 U/L [facility] GLOBULIN 3.2 1 - 4.8 g/dL [facility] EGFR 100 >59 mL/min/1.7 3m2 [facility] Comment:Estimated glomerular filtration rate calculated using the CKD-EPI refit equation. ANION GAP 13 10 - 20 mmol/L [facility] Blood 09/16/2021 10:0 1 AM EDT 09/16/2021 10:07 AM EDT us Lisa Rodriguez PA-C LAB BLOOD BKR ORDERABLES Final Result Performing Organization Address City/State/[facility] Co de Phone Number [address] [address] documented in this encounter Visit Diagnoses Diagnosis Diarrhea, unspecified type- Primary Lower abdominal pain Abdominal pain, other specified site Rectal bleeding Hemorrhage of rectum and anus Constipation, unspecified constipation type documented in this encounter Additional Health Concerns Infection Onset Date Last Indicated Resolved Time CoV-Risk 05/25/2023 05/25/2023 06/05/2023 1:24 AM EST documented as of this encounter Care Teams Rn First Assistant Relationship Specialty Start Date End Date Mayuri Michael CNP [address] [place] [address] [email or web address] PCP - General 01/24/17 09/01/22 Fallon Portillo PA [address] [place] [address] [email or web address] PCP - General Physician Body Joiner 09/02/22 05/01/24 Ingris Johnson DO [address] [place] [address] [email or web address] PCP - General Family Medicine 05/02/24 10/07/24 Ingris Johnson DO [address] [place] [address] PCP - General Family Medicine 10/08/24 Yisel Boles MD [address] [place] [address] [email or web address] Insurance Assigned Provider 07/15/23 03/20/24 documented as of this encounter Additional Source Comments The information contained in this document represents components of the legal health record. It is not the complete legal health record.[facility]
--- OUTSIDE RECORDS SUMMARY | 2025-04-08 15:09 | XMS_ITS | Encounter Summary ---
Author Organization [employer] Address 75 [facility] 7t [place] [address] Care Team Providers Care Brazing Machine Operator Automatic Name Role Phone Fallon Portillo PA-C Primary Care Provider Ingris Tejeda DO Primary Care Provider [phone] Encounter Details Date Type Department Care Team (Late st Contact Info) Description 05/23/2023 Orders Only [facility] MEDICAL [address] [place] [address] Fallon Portillo PA-C Acute pain of right [...] Info) Description 04/15/2025 4:30 PM EST Telemedicine [facility] MEDICAL [address] [place] [address] Ingris Johnson DO [address] [place] [address] 09/24/2025 9:20 AM EDT Office Visit [facility] DENTAL [address] [place] [address] Lyssa Edwards [address] [place] [address] documented as of this encounter Procedures Procedure [...] knee documented in this encounter Care Teams Brazing Machine Operator Automatic Relationship Specialty Start Date End Date Fallon Portillo PA-C PCP - General Family Medicine 06/20/22 01/07/24 Ingris Johnson DO [address] [place] [address] PCP - General Family Medicine 01/08/24 documented as of this encounter
--- OUTSIDE RECORDS SUMMARY | 2025-04-08 15:09 | XMS_ITS | Encounter Summary ---
Author Organization [facility] Address [address] [place] [address] [place] [address] Phone Care Team Providers Care Police Radio Dispatcher Name Role Phone Alec Mayurikat Flores CNP Primary Care Provider + Mayuri Michael INCLUSION SPECIALIST Unavailable [phone] Tai Garcia MD Unavailable [phone] Barak Cheema DPM Unavailable Unavailable Fallon Portillo Primary Care Provider [phone] Yisel Boles MD Unavailable [phone] Ingris Johnson DO Primary Care Provider [phone] Ingris Johnson DO Primary Care Provider [phone] Encounter Details Date Type Department Care Team (Latest Contact Info) Description 09/23/2020 Ancillary Orders [facility] [address] [place] [address], 4th Floor, [address] [place] [address] Crystal Neely MD [address] [place] [address] [id number] [place] [address] [email or web address] Chronic pain of both knees [...] Description 04/15/2025 10:00 AM EST Office Visit [facility] Pulmonology, Allergy and Critical Care Medicine Clinic [address] [place] [address] Isha Porter MD [address] [place] [address] 2nd [place] [address] [email or web address] documented as of this encounter Results * [...] documented as of this encounter Care Teams Police Radio Dispatcher Relationship Specialty Start Date End Date Lodzieski, Mayuri A, INCLUSION SPECIALIST [address] [place] [address] [email or web address] PCP - General 01/24/17 09/01/22 Fallon Portillo PA [address] [place] [address] [email or web address] PCP - General Physician Education Professor 09/02/22 05/01/24 Ingris Johnson DO [address] [place] [address] PCP - General Family Medicine 05/02/24 10/07/24 Ingris Johnson DO [address] [place] [address] PCP - General Family Medicine 10/08/24 Mayuri Michael CNP [address] [place] [address] [email or web address] Historical LMR Provider 01/26/1704/17 Tai Garcia MD [address] [place] [address] Historical LMR Provider 01/26/17 Barak Cheema DPM [address] [place] [address] Historical LMR Provider 01/26/1704/17/21 Yisel Boles MD [address] [place] [address] Insurance Assigned Provider 07/15/23 03/20/24 documented as of this encounter Additional Source Comments The information contained in this document represents components of the legal health record. It is not the complete legal health record.[facility]
--- OUTSIDE RECORDS SUMMARY | 2025-04-08 15:09 | XMS_ITS | Encounter Summary ---
Author Organization [employer] Address [address] [place] [address] 7t [place] [address] Care Team Providers Care Manager Community Outreach Name Role Phone Fallon Portillo PA-C Primary Care Provider Unav Ingris Flores DO Primary Care Provider [phone] Encounter Details Date Type Department Care Team [...] Description 04/15/2025 4:[address] [facility] MEDICAL [address] [place] [address] Ingris Johnson DO 73 [place] [address] 09/24/2025 9:20 AM EDT Office Visit [facility] DENTAL [address] [place] [address] Lyssa Edwards 58 [place] [address] documented as of this encounter Visit Diagnoses Not on filedocumented in this encounter Care Teams Manager Community Outreach Relationship Specialty Start Date End Date Fallon Portillo PA-C PCP - General Family Medicine 06/20/22 01/07/24 Ingris Johnson DO [address] [place] [address] PCP - General Family Medicine 01/08/24 documented as of this encounter
--- OUTSIDE RECORDS SUMMARY | 2025-04-08 15:09 | XMS_ITS | Encounter Summary ---
Author Organization [facility] Address [address] [place] [address] Phone Care Team Providers Care Uke Driver Name Role Phone Mayuri Michael CNP Primary Care Provider + Mayuri Michael WOOD CARVER HAND Unavailable [phone] Tai Garcia MD Unavailable [phone] Barak Cheema DPM Unavailable Unavailable Fallon Portillo Primary Care Provider [phone] Yisel Boles MD Unavailable [phone] Ingris Johnson DO Primary Care Provider [phone] Ingris Johnson DO Primary Care Provider [phone] Encounter Details Date Type Department Care Team (Late st Contact Info) Description 08/17/2020 Procedure Pass [facility] - [address] [place] [address] Social History Tobacco Use Types Packs/Day Years [...] Description 04/15/2025 10:00 AM EST Office Visit [facility] Pulmonology, Allergy and Critical Care Medicine Clinic 10 [place] [address] Isha Porter MD 10 [facility] 2nd [place] [address] [email or web address] documented as of this encounter Visit Diagnoses Not on filedocumented in this encounter Additional Health Concerns Infection Onset Date Last Indicated Resolved Time CoV-Exposed Comment:Recent close contact documented in the Travel/Symptom Screening Form 04/10/2021 04/25/2021 1:[address] CoV-Risk 05/25/2023 05/25/2023 06/05/2023 1:24 AM EST documented as of this encounter Care Teams Uke Driver Relationship Specialty Start Date End Date Mayuri Michael CNP [address] [place] [address] [email or web address] PCP - General 01/24/17 09/01/22 Fallon Portillo PA [address] [place] [address] [email or web address] PCP - General Physician Daylight Driller 09/02/22 05/01/24 Ingris Johnson DO [address] [place] [address] PCP - General Family Medicine 05/02/24 10/07/24 Ingris Johnson DO [address] [place] [address] PCP - General Family Medicine 10/08/24 Mayuri Michael CNP [address] [place] [address] [email or web address] Historical LMR Provider 01/26/1704/17 Tai Garcia MD [address] [place] [address] Historical LMR Provider 01/26/17 Barak Cheema DPM [address] [place] [address] Historical LMR Provider 01/26/1704/17/21 Yisel Boles MD [address] [place] [address] [email or web address] Insurance Assigned Provider 07/15/23 03/20/24 documented as of this encounter Additional Source Comments The information contained in this document represents components of the legal health record. It is not the complete legal health record.[facility]
--- OUTSIDE RECORDS SUMMARY | 2025-04-08 15:09 | XMS_ITS | Encounter Summary ---
Author Organization [facility] Address [address] [place] [address] Phone Care Team Providers Care Husbandry Person Name Role Phone Fallon Portillo Primary Care Provider [phone] Yisel Boles MD Unavailable [phone] Ingris Johnson DO Primary Care Provider [phone] Ingris Johnson DO Primary Care Provider [phone] Encounter Details Date Type Department Care Team (Late st Contact Info) Description 04/25/2023 Procedure Pass [facility], [address] [address] Social History Tobacco Use Types Packs/Day Years [...] 04/15/2025 10:00 AM EST Office Visit [facility] Pulmonology, Allergy and Critical Care Medicine Clinic [address] [place] [address] Isha Porter MD [address] [address] [email or web address] documented as of this encounter Visit Diagnoses Not on filedocumented in this encounter Additional Health Concerns Infection Onset Date Last Indicated Resolved Time CoV-Risk 05/25/2023 05/25/2023 06/05/2023 1:24 AM EST documented as of this encounter Care Teams Husbandry Person Relationship Specialty Start Date End Date Fallon Portillo PA [email or web address] PCP - General Physician Guest Specialist 09/02/22 05/01/24 Ingris Johnson DO [address] [place] [address] PCP - General Family Medicine 05/02/24 10/07/24 Ingris Johnson DO [address] [place] [address] PCP - General Family Medicine 10/08/24 Yisel Boles MD [address] [place] [address] [email or web address] Insurance Assigned Provider 07/15/23 03/20/24 documented as of this encounter Additional Source Comments The information contained in this document represents components of the legal health record. It is not the complete legal health record.[facility]
--- OUTSIDE RECORDS SUMMARY | 2025-04-08 15:09 | XMS_ITS | Encounter Summary ---
Author Organization [employer] Address 75 [facility] 7t [place] [address] Care Team Providers Care Supervisor Sewing Room Name Role Phone Ingris Johnson DO Primary Care Provider [phone] Encounter Details Date Type Department Care Team (Latest Contact Info) Description 02/13/2025 Results Follow-Up [facility] MEDICAL [address] [place] [address] Ingris Johnson DO [address] [place] [address] [place] Pelvis Transvaginal Social History Tobacco Use [...] Info) Description 04/15/2025 4:30 PM EST Telemedicine [facility] MEDICAL [address] [place] [address] Ingris Johnson DO [address] [place] [address] 09/24/2025 9:20 AM EDT Office Visit [facility] DENTAL [address] [place] [address] Lyssa Edwards [address] [place] [address] documented as of this encounter Visit Diagnoses Not on filedocumented in this encounter Care Teams Supervisor Sewing Room Relationship Specialty Start Date End Date Ingris Johnson DO [address] [place] [address] PCP - General Family Medicine 01/08/24 documented as of this encounter
--- OUTSIDE RECORDS SUMMARY | 2025-04-08 15:09 | XMS_ITS | Encounter Summary ---
Author Organization [facility] Address [address] [place] [address] Phone Care Team Providers Care Catalyst Plant Supervisor Name Role Phone Alec Mayurikat Flores CNP Primary Care Provider + Mayuri Michael RAIL CAR PAINTER/SANDBLASTER Unavailable Tai Garcia MD Unavailable [phone] Barak Cheema DPM Unavailable Unavailable Fallon Portillo Primary Care Provider [phone] Yisel Boles MD Unavailable [phone] Ingris Johnson DO Primary Care Provider [phone] Ingris Johnson DO Primary Care Provider [phone] Encounter Details Date Type Department Care Team (Late st Contact Info) Description 08/17/2020 Ancillary Orders Virtual Department [address] [place] [address] Britany Mcnair MD [address] [place] [address] [email or web address] Breast pain, left Social History Tobacco [...] Allergy and Critical Care Medicine Clinic 10 [facility] [place] [address] Isha Porter MD [address] [place] [address] [email or web address] documented as of this encounter Results * [...] documented as of this encounter Care Teams Catalyst Plant Supervisor Relationship Specialty Start Date End Date Mayuri Michael CNP [address] [place] [address] [email or web address] PCP - General 01/24/17 09/01/22 Fallon Portillo PA [address] [place] [address] [email or web address] PCP - General Physician Director Of Enrollment 09/02/22 05/01/24 Ingris Johnson DO [address] [place] [address] [email or web address] PCP - General Family Medicine 05/02/24 10/07/24 Ingris Johnson DO [address] [place] [address] PCP - General Family Medicine 10/08/24 Mayuri Michael CNP [address] [place] [address] [email or web address] Historical LMR Provider 01/26/1704/17 Tai Garcia MD [facility] [place] [address] Historical LMR Provider 01/26/17 Barak Cheema DPM [address] [place] [address] Historical LMR Provider 01/26/1704/17/21 Yisel Boles MD [address] [place] [address] [email or web address] Insurance Assigned Provider 07/15/23 03/20/24 documented as of this encounter Additional Source Comments The information contained in this document represents components of the legal health record. It is not the complete legal health record.[facility]
--- OUTSIDE RECORDS SUMMARY | 2025-04-08 15:09 | XMS_ITS | Encounter Summary ---
Author Organization [facility] Address [address] [place] [address] Phone Care Team Providers Care Contact Lens Polisher Name Role Phone Mayuri Michael CNP Primary Care Provider + Mayuri Michael CNP Unavailable [phone] Tai Garcia MD Unavailable [phone] Barka CheemaM Unavailable Unavailable Fallon Portillo Primary Care Provider [phone] Yisel Boles MD Unavailable Ingris Johnson DO Primary Care Provider [phone] Ingris Johnson DO Primary Care Provider [phone] Reason for Referral * Physical Therapy (Routine) - Closed Specialty Diagnoses / Procedures Referred By Alejandra leal Referred To Contact Physical Therapy Diagnoses Encounter for rehabilitation Graciela Antony DPM Phone: tel: fax: mailto:[email or web address] Ashanti Kendall PT mailto:[email or web address] Referral ID Status Reason Start Date Expiration Date Visits Re quested Visits Authorized [id number] Closed 03/28/2018 03/28/2019 20 20 Encounter Details Date Type Department Care Team (Late st Contact Info) Description 03/20/2018 Transcribe Orders [facility] [address] [place] [address] Graciela Antony DPM 10 [facility] 7 [place] [address] [email or web address] Encounter for rehabilitation (Primary Dx) Social History [...] Upcoming Encounters Date Type Department Care Team ([facility] Contact Info) Description 04/15/2025 10:00 AM EST Office Visit [facility] Pulmonology, Allergy and Critical Care Medicine Clinic [address] [place] [address] Isha Porter MD [address] [place] [address] [email or web address] documented as of this encounter Procedures Procedure Name Priority Date/Time Associated Diagnosis Comments AMB REFERRAL TO [facility] PHYSICAL THERAPY Routine 04/09/2018 11:08 AM EST Encounter for rehabilitation documented in this encounter Results * Ambulatory referral to [facility] Physical Therapy (04/09/2018 11:08 AM EST) Graciela Antony DPM AMB [facility] REFERRALS Final Result documented in this encounter Visit Diagnoses Diagnosis Encounter for rehabilitation- Primary documented in this encounter Additional Health Concerns Infection Onset Date Last Indicated Resolved Time CoV-Exposed Comment:Recent close contact documented in the Travel/Symptom Screening Form 04/10/2021 04/25/2021 1:[address] CoV-Risk 05/25/2023 05/25/2023 06/05/2023 1:24 AM EST documented as of this encounter Care Teams Contact Lens Polisher Relationship Specialty Start Date End Date Mayuri Michael CNP [address] [place] [address] [email or web address] PCP - General 01/24/17 09/01/22 Fallon Portillo PA [address] [place] [address] [email or web address] PCP - General Physician Contact Lens Fitter 09/02/22 05/01/24 Ingris Johnson DO [address] [place] [address] PCP - General Family Medicine 05/02/24 10/07/24 Ingris Johnson DO [address] [place] [address] PCP - General Family Medicine 10/08/24 Mayuri Michael CNP [address] [place] [address] [email or web address] Historical LMR Provider 01/26/1704/17 Tai Garcia MD [address] [place] [address] Historical LMR Provider 01/26/17 Barak Cheema DPM [address] [place] [address] Historical LMR Provider 01/26/1704/17/21 Yisel Boles MD [address] [place] [address] Insurance Assigned Provider 07/15/23 03/20/24 documented as of this encounter Additional Source Comments The information contained in this document represents components of the legal health record. It is not the complete legal health record.[facility]
== END 2025-04-08 12:13 | disposition home or self-care (01) ==
LOC: HO.HWS 11:10
PROVIDERS: PCP Family Medicine; Visit Provider Obstetrics & Gynecology
DX: N93.9 Abnormal uterine and vaginal bleeding, unspecified (principal); N83.299 Other ovarian cyst, unspecified side
CPT/HCPCS: 58100; 99203